=== PATIENT | female | born 1945 | race Caucasian/White ===

== ENCOUNTER 2020-06-01 15:03 | Outpatient (REF) | payer MEDICARE, SELFPAY ==
[2020-06-01 15:55] LABS: Influenza A PCR NEGATIVE (Negative); Influenza B PCR NEGATIVE (Negative); Resp Syncy Virus RNA Qual PCR NEGATIVE (Negative); SARS COV2 PCR INHOUSE NEGATIVE (Negative)
== END 2020-06-01 15:04 | disposition home or self-care (01) ==
LOC: HO.LNP 15:03
PROVIDERS: Visit Provider Internal Medicine
DX: Z20.822 Contact with and (suspected) exposure to COVID-19 (principal)
CPT/HCPCS: 0241U

== ENCOUNTER 2020-06-19 14:13 | Outpatient (REF) | payer MEDICARE, SELFPAY ==
--- NOTE | ~2020-06-19 | MM_ITS ---
EXAMINATION: MM DIAGNOSTIC DIGITAL BREAST TOMOSYNTHESIS, BILATERAL CLINICAL INFORMATION: Due for yearly. Also follow-up probable benign calcifications central 6:00 and posterior 3:00 left breast. Remote history reduction mammoplasty. The lifetime risk of breast cancer based on the Tyrer-Cuzick Model is 5%. COMPARISON: Mammography: 04/13/2019, 10/04/2018, 04/02/2018 (diagnostic, BI-RADS 3 calcifications anterior central left), 02/06/2017 TECHNIQUE: Digital breast tomosynthesis is performed in both the craniocaudal and mediolateral oblique views along with computer-aided detection (CAD). Synthesized 2D images are generated from the tomosynthesis. Additional views are obtained: Exaggerated left CC, magnification left CC, magnification exaggerated left CC, magnification left ML, magnification left ML. FINDINGS: The breasts are heterogeneously dense, which may obscure small masses (ACR BI-RADS breast composition Category c). There is fibronodular parenchymal pattern similar to prior studies. There is an old circumscribed nodule likely intramammary node posterior left breast just lateral to posterior nipple line. Neither breast shows interval mass or architectural abnormality. The axilla and skin contours are unremarkable. There is minor scarring breast and scattered anterior calcifications consistent with the remote history of reduction mammoplasty. Calcifications for follow-up left breast are similar to prior diagnostic studies and now considered benign. Results are provided to the patient at time of visit by the technologist. MM/MM tomosynthesis diagnostic BI IMPRESSION: 1. Minor post surgical changes. No significant changes from prior studies. 2. Calcifications for follow-up are similar to prior diagnostic exams and now considered benign. ASSESSMENT: BI-RADS 2: Benign RECOMMENDATION: Routine annual mammography screening. This patient's information was entered into a reminder system with a target due date for their next mammogram.
--- NOTE | ~2020-06-19 | MM_ITS ---
EXAMINATION: BONE DENSITOMETRY CLINICAL INDICATION: Osteoporosis. COMPARISON: Previous BD dated 07/24/2016 and baseline BD dated 12/11/2009. TECHNIQUE: Using a [employer] DXA System (software version: 13.1) manufactured by [employer], dual-energy x-ray absorptiometry was performed of the lumbar spine and left hip. The images are of good technical quality. Summary results are attached. FINDINGS: AP SPINE L1-L4 (excluding L3): The data of L1-L4 has been changed to exclude the L3 vertebral body, because degenerative changes at this level may cause overestimation of lumbar spine density. Current: BMD 0.805 g/cm2, Z-score -1.2, T-score -3.0, osteoporosis, 8.1% decrease from previous, 16.8% decrease from baseline (<5% change is not significant). Prior: BMD 0.876 g/cm2. Baseline: BMD 0.968 g/cm2. LEFT FEMUR, NECK: Current: BMD 0.691 g/cm2, Z-score -0.6, T-score -2.5, osteoporosis. Prior: BMD 0.775 g/cm2. Baseline: BMD 0.863 g/cm2. LEFT FEMUR, TOTAL: Current: BMD 0.697 g/cm2, Z-score -0.8, T-score -2.5, osteoporosis, 13.3% decrease from previous, 21.5% decrease from baseline (<5% change is not significant). Prior: BMD 0.804 g/cm2. Baseline: BMD 0.888 g/cm2. IDENTIFIED RISK FACTORS: Osteoporosis, family history (parental hip fracture), secondary osteoporosis, history of fracture (adult) menopause, hysterectomy, bilateral oophorectomy. HISTORY OF FRACTURE: Ankle. MEDICATIONS: Calcium supplements or multivitamin, vitamin D. MM/XR DEXA axial skeleton IMPRESSION: 1. DIAGNOSIS: Osteoporosis based on the lowest T-score value of -3.0 in the lumbar spine applying World Health Organization criteria. 2. 10-YEAR FRACTURE RISK PREDICTION, FRAX: Major osteoporotic fracture (clinical spine, forearm, hip or shoulder) 38.3%. Hip fracture 21.2%. 3. Treatment Recommendations: NOF guidelines recommend consideration for treatment in postmenopausal women and men age 50 and older presenting with the following: -A hip or vertebral (clinical or morphometric) fracture. -T-score less than or equal to -2.5 at the femoral neck or spine after appropriate evaluation to exclude secondary causes. -Low bone mass at the hip or spine and a 10-year fracture probability by FRAX of greater than or equal to 3% for hip fracture or greater than or equal to 20% for major osteoporotic fracture based on the [place] adapted WHO algorithm. 4. Other Recommendations: All treatment decisions require clinical judgment and consideration of individual patient factors, including patient preferences, comorbidities, previous drug use, risk factors not captured in the FRAX model (e.g. frailty, falls, vitamin D deficiency, increased bone turnover, interval significant decline in bone density) and possible under or overestimation of fracture risk by FRAX. Additional medical evaluation for secondary cause of low bone mineral density may be appropriate. FUTURE SCAN RECOMMENDATION: People with diagnosed cases of osteoporosis or at high risk for fracture should have regular bone mineral density tests. For patients eligible for Medicare, routine testing is allowed once every 2 years. The testing frequency can be increased to one year for patients who have rapidly progressing disease, those who are receiving or discontinuing medical therapy to restore bone mass, or have additional risk factors.
== END 2020-06-19 14:14 | disposition home or self-care (01) ==
LOC: HO.MAMMO 14:13
PROVIDERS: PCP Obstetrics & Gynecology Gynecology; Visit Provider Obstetrics & Gynecology Gynecology
DX: Z13.820 Encounter for screening for osteoporosis (principal); Z78.0 Asymptomatic menopausal state; Z90.710 Acquired absence of both cervix and uterus; Z90.722 Acquired absence of ovaries, bilateral; Z79.899 Other long term (current) drug therapy; R92.1 Mammographic calcification found on diagnostic imaging of breast
CPT/HCPCS: 77062; 77066; 77080

== ENCOUNTER 2020-06-27 09:45 | Outpatient (REF) | payer MEDICARE, SELFPAY ==
[2020-06-27 14:12] LABS: Alanine Aminotransferase 12 U/L (0-31); Albumin Level 4.2 g/dL (3.5-5.0); Alkaline Phosphatase 74 U/L (39-117); Anion Gap 13 (12-20); Aspartate Amino Transferase 20 U/L (5-31); Bilirubin Total 1.2 mg/dL (0.0-1.0); Blood Urea Nitrogen 15 mg/dL (9-16); Calcium 8.8 mg/dL (8.4-10.2); Carbon Dioxide 26 mmol/L (22-29); Chloride 106 mmol/L (96-108); Estimated Glomerular Filt Rate > 60; Glucose Fasting 97 mg/dL (60-99); Potassium 4.3 mmol/L (3.3-5.1); Sodium 141 mmol/L (135-145); Total Protein 6.9 g/dL (6.5-8.0)
[2020-06-27 14:35] LABS: Thyroid Stimulating Hormone 62.62 uIU/mL (0.32-4.0); Vitamin D 25-OH Total 30.4 ng/mL (>30)
[2020-06-30 10:57] LABS: PTHI 62 pg/mL (14-64)
[2020-07-03 16:02] LABS: N-Telopeptide 59 (see note); NTXCreaRU 267 mg/dL (20-275)
== END 2020-06-27 09:46 | disposition home or self-care (01) ==
LOC: HO.10HDL 09:45
PROVIDERS: Visit Provider Obstetrics & Gynecology Gynecology
DX: M85.9 Disorder of bone density and structure, unspecified (principal)
CPT/HCPCS: 36415; 80053; 82306; 82523; 83970; 84443

== ENCOUNTER 2022-04-17 11:59 | Outpatient (REF) | payer MEDICARE, SELFPAY ==
[2022-04-17 12:24] LABS: MANUAL DIFF FLAG NO
[2022-04-17 12:36] LABS: Basophils Absolute Auto 0.1 X10*3/uL (0.0-0.2); Basophils Percent Auto 0.8 % (0-2); Eosinophils Absolute Auto 0.2 X10*3/uL (0.0-0.4); Eosinophils Percent Auto 2.5 % (0-4); Hematocrit 39.3 % (37.0-47.0); Hemoglobin 12.8 g/dl (12.0-16.0); Imm Gran Abs Auto 0.01 X10*3/uL (0.00-0.03); Imm Gran Pct Auto 0.2 % (0.0-0.4); Lymphocytes Absolute Auto 1.7 X10*3/uL (1.2-4.9); Lymphocytes Percent Auto 28.3 % (20-40); Mean Corpuscular HGB Conc 32.6 g/dl (31.0-35.0); Mean Corpuscular Hemoglobin 31.6 pg (27.0-33.0); Monocytes Absolute Auto 0.5 X10*3/uL (0.1-1.2); Monocytes Percent Auto 8.3 % (2-11); Neutrophils Absolute Auto 3.7 x10*3/uL (2.0-8.3); Neutrophils Percent Auto 59.9 % (45-73); Platelet Count 312 X10*3/uL (160-400); Red Blood Count 4.05 X10*6/uL (4.20-5.50); Red Cell Distribution Width 13.6 % (11.0-16.0); White Blood Count 6.1 X10*3/uL (4.8-10.8)
[2022-04-17 13:20] LABS: Alanine Aminotransferase 11 U/L (0-31); Albumin Level 4.2 g/dL (3.5-5.0); Alkaline Phosphatase 75 U/L (39-117); Anion Gap 12 (12-20); Aspartate Amino Transferase 19 U/L (5-31); Bilirubin Total 1.1 mg/dL (0.0-1.0); Blood Urea Nitrogen 14 mg/dL (9-16); Calcium 9.3 mg/dL (8.4-10.2); Carbon Dioxide 24 mmol/L (22-29); Chloride 107 mmol/L (96-108); Cholesterol 220 mg/dL; Estimated Glomerular Filt Rate > 60; Glucose Random 97 mg/dL (60-115); HDL Cholesterol 63 mg/dL; LDL Cholesterol Calculated 143 mg/dl; Sodium 139 mmol/L (135-145); Total Protein 6.8 g/dL (6.5-8.0); Triglycerides 72 mg/dL
[2022-04-17 13:37] LABS: Free T4 (Free Thyroxine) < 0.42 ng/dL (0.71-1.85); Thyroid Stimulating Hormone 49.27 uIU/mL (0.32-4.0); Vitamin B12 369 pg/mL (200-900); Vitamin D 25-OH Total 24.8 ng/mL (>30)
[2022-04-19 01:18] LABS: Lyme Abs Screen <0.90 index
== END 2022-04-17 12:00 | disposition home or self-care (01) ==
LOC: HO.LAB 11:59
PROVIDERS: PCP Internal Medicine; Visit Provider Internal Medicine
DX: Z00.00 Encounter for general adult medical examination without abnormal findings (principal)
CPT/HCPCS: 36415; 80053; 80061; 82306; 82607; 84439; 84443; 85025; 86617; 86618

== ENCOUNTER 2022-06-11 15:22 | Outpatient (REF) | payer MEDICARE, SELFPAY ==
[2022-06-11 17:22] LABS: Free T4 (Free Thyroxine) 0.75 ng/dL (0.71-1.85); Thyroid Stimulating Hormone 38.41 uIU/mL (0.32-4.0); Vitamin D 25-OH Total 25.5 ng/mL (>30)
== END 2022-06-11 15:23 | disposition home or self-care (01) ==
LOC: HO.LAB 15:22
PROVIDERS: PCP Internal Medicine; Visit Provider Internal Medicine
DX: E03.9 Hypothyroidism, unspecified (principal); E55.9 Vitamin D deficiency, unspecified
CPT/HCPCS: 36415; 82306; 84439; 84443

== ENCOUNTER 2022-08-13 11:46 | Day surgery (SDC) | payer MEDICARE, SELFPAY ==
--- NOTE | 2022-08-12 14:32 | P.CONAN_ITS ---
Documented by User: Serena Mustafa NP 08/12/22 14:33 HPI - Anesthesia Eval Consult details Narrative: 77yo F for Colonoscopy [facility] Past Medical History Medical History Diverticulosis Exposure to hepatitis B Graves disease Surgical History Surgical History H/O colonoscopy H/O esophagogastroduodenoscopy H/O removal of cyst H/O: hysterectomy History of appendectomy Hx of tonsillectomy Social History Social History Patient Tobacco Use Status: Former Tobacco user Quit Date: greater than 30 yrs ago Patient Given Instructions on How to Stop Smoking: No Second Hand Smoke Exposure: No Use of substances other than those prescribed or required for medical reasons: No Are you DNR?: No Advance Directives: No Advance Directives Information Provided: Yes Meds Allergies Allergy/AdvReac Type Severity Reaction Status Date / Time rofecoxib [From VIOXX] Allergy Mild Swelling Verified 08/13/22 11:53 Home Medications Medication Instructions Recorded Confirmed Last Taken Type Calcium + D 08/12/22 Unknown History Multi Vitamin 08/12/22 08/12/22 Unknown History fluticasone propionate 50 1 spray intranasal DAILY 08/12/22 08/12/22 Unknown History mcg/actuation nasal spray,suspension levothyroxine 100 mcg tablet 100 mcg PO DAILY 08/12/22 08/12/22 Unknown History Exam Exam Date and Time: August 12, 2022 1432 Pertinent Lab Results Pertinent Lab Results: Laboratory Tests 04/17/22 04/17/22 12:22 12:22 WBC 6.1 Hgb 12.8 Hct 39.3 Plt Count 312 Sodium 139 Potassium 4.0 Chloride 107 Carbon Dioxide 24 BUN 14 Creatinine 0.83 Assessment and Plan Assessment Anesthesia Assessment: Chart Reviewed Documented by User: Lori Aranda MD 08/13/22 13:22 [facility] Past Medical History Medical History Diverticulosis Exposure to hepatitis B Graves disease Family History Family history of problems with anesthesia: No Surgical History Surgical History H/O colonoscopy H/O esophagogastroduodenoscopy H/O removal of cyst H/O: hysterectomy History of appendectomy Hx of tonsillectomy History of Problems with Anesthesia: No Social History Social History Patient Tobacco Use Status: Former Tobacco user Quit Date: greater than 30 yrs ago Patient Given Instructions on How to Stop Smoking: No Second Hand Smoke Exposure: No Use of substances other than those prescribed or required for medical reasons: No Are you DNR?: No Advance Directives: No Advance Directives Information Provided: Yes Meds Allergies Allergy/AdvReac Type Severity Reaction Status Date / Time rofecoxib [From VIOXX] Allergy Mild Swelling Verified 08/13/22 11:53 Home Medications Medication Instructions Recorded Confirmed Last Taken Type Calcium + D 08/12/22 Unknown History Multi Vitamin 08/12/22 08/12/22 Unknown History fluticasone propionate 50 1 spray intranasal DAILY 08/12/22 08/12/22 Unknown History mcg/actuation nasal spray,suspension levothyroxine 100 mcg tablet 100 mcg PO DAILY 08/12/22 08/12/22 Unknown History Exam Airway Mallampati Class: II TM Dist: >3cm Neck ROM: Full Heart: rr Lungs: cta Assessment and Plan Assessment Anesthesia Assessment: Anesthesia Plan Discussed Final Anesthetic Review Family History of Problems with Anesthesia: No History of Problems with Anesthesia: No NPO: Yes ASA Class: II Final Preanesthetic Review: No Changes in Pt Med Stat, Meds/Allgs Chart Reviewed, Consent Obtained/Reviewed and Anes Risks/Benef Reviewed Patient Risk: Low Procedure Risk: Low Anesthetic Plan Anesthetic Plan: MAC: Disposition: Standard PACU
[2022-08-13 12:11] VITALS: BMI 22.3
[2022-08-13 12:17] VITALS: BP 129/72; PULSE 72; RESP 18; TEMP 36.5; O2SAT 99
[2022-08-13] MEDS: Lactated Ringers 1,000 ML 100 ML IVCONT (12:17)
[2022-08-13 12:21] VITALS: BMI 22.3
--- NOTE | 2022-08-13 13:03 | MHC.SHP ---
Pre-Procedural Eval Section A Date of Service: 08/13/22 The patient is an INPATIENT: No Changes since office visit: No Cold of Flu in the past 2 weeks, No New Medical Problems, No Changes in Medication and No Patient answered all questions The History & Physical has been completed within 30 days and I have reviewed it.: Yes Section B Chief Complaint: Encounter for screening for malignant neoplasm of Allergies: Allergies Allergy/AdvReac Type Severity Reaction Status Date / Time rofecoxib [From VIOXX] Allergy Mild Swelling Verified 08/13/22 11:53 Plan I have reviewed the history and physical and performed a pertinent physical examination on my patient. No changes have occurred unless specified. Time Spent With Patient Time: Total time managing care of this patient today ____ minutes.
--- NOTE | 2022-08-13 13:41 | PM.OP ---
Brief Operative Note Date of Service: 08/13/22 Pre-op diagnosis: screening Post-op diagnosis: same Procedure: colonoscopy Surgeon: Nayan Schmidt Anesthesia: MAC Was an Rotary Lithographic Press Operator used for this Procedure?: No Estimated blood loss (mL): 0 Pathology: none sent Condition: stable Disposition: PACU
[2022-08-13 13:43] VITALS: BP 87/41; PULSE 67; RESP 16; TEMP 36.4; O2SAT 97
[2022-08-13 13:58] VITALS: BP 100/56; PULSE 73; RESP 12; O2SAT 98
[2022-08-13 14:13] VITALS: BP 116/59; PULSE 55; RESP 14; TEMP 36.4; O2SAT 99
--- NOTE | 2022-08-14 00:04 | OP_ITS ---
DATE OF SERVICE: 08/13/2022 SURGEON: Nayan Schmidt MD INDICATIONS: Colon cancer screening. PREOPERATIVE DIAGNOSIS: POSTOPERATIVE DIAGNOSIS: PROCEDURE PERFORMED: ESTIMATED BLOOD LOSS: COMPLICATIONS: ANESTHESIA: Monitored anesthesia care. ASSISTANTS: SPECIMENS: PROCEDURE: Colonoscopy to the terminal ileum. DESCRIPTION OF PROCEDURE: A history and physical was performed. The risks and benefits of the procedure were explained to the patient and informed consent was obtained and the patient was placed in the left lateral decubitus position. A digital rectal exam was performed and was found to be normal. The Olympus pediatric video colonoscope was introduced into the rectum and advanced to the cecum without difficulty. The cecum was identified by transillumination, palpation, and identification of the ileocecal valve. Examination was performed. The scope was removed. She tolerated the procedure well and was taken to recovery are in stable condition. FINDINGS: The terminal ileum was examined and appeared normal. The visualized colonic mucosa was within normal limits without evidence of masses or ulcers. No polyps were identified. The quality of prep was good. There was moderate sigmoid diverticulosis. Retroflexed examination showed small internal hemorrhoids. IMPRESSION: Normal colonoscopy. RECOMMENDATIONS: 1. Follow up as needed. 2. Repeat colonoscopy is optional based on age, but could be considered in 5 years. MD JASVIR Hart/ODILIAL / [id number]
== END 2022-08-13 14:56 | disposition home or self-care (01) ==
PROVIDERS: PCP Internal Medicine; Visit Provider Internal Medicine Gastroenterology
PROC: 0DJD8ZZ Inspection of Lower Intestinal Tract, Via Natural or Artificial Opening Endoscopic (ICD-10-PCS; CPT 45378; principal; 2022-08-13 13:00)
DX: Z12.11 Encounter for screening for malignant neoplasm of colon (principal); Z80.0 Family history of malignant neoplasm of digestive organs; Z83.71 Family history of colonic polyps; K57.30 Diverticulosis of large intestine without perforation or abscess without bleeding; K64.8 Other hemorrhoids; K59.00 Constipation, unspecified; E05.00 Thyrotoxicosis with diffuse goiter without thyrotoxic crisis or storm; Z57.8 Occupational exposure to other risk factors; Z20.5 Contact with and (suspected) exposure to viral hepatitis; Z79.899 Other long term (current) drug therapy; Z88.8 Allergy status to other drugs, medicaments and biological substances; Z87.891 Personal history of nicotine dependence
CPT/HCPCS: G0105

== ENCOUNTER 2023-12-16 11:23 | Outpatient (REF) | payer MEDICARE, SELFPAY ==
[2023-12-16 13:10] LABS: MANUAL DIFF FLAG NO
[2023-12-16 13:12] LABS: Basophils Percent Auto 0.6 % (0-2); Eosinophils Absolute Auto 0.1 X10*3/uL (0.0-0.4); Eosinophils Percent Auto 1.8 % (0-4); Hematocrit 38.5 % (37.0-47.0); Hemoglobin 12.8 g/dl (12.0-16.0); Imm Gran Abs Auto 0.01 X10*3/uL (0.00-0.03); Imm Gran Pct Auto 0.2 % (0.0-0.4); Lymphocytes Absolute Auto 1.9 X10*3/uL (1.2-4.9); Lymphocytes Percent Auto 37.9 % (20-40); Mean Corpuscular HGB Conc 33.2 g/dl (31.0-35.0); Mean Corpuscular Hemoglobin 32.4 pg (27.0-33.0); Mean Corpuscular Volume 97.5 fL (80.0-98.0); Mean Platelet Volume 9.5 fL (9.4-12.3); Monocytes Absolute Auto 0.4 X10*3/uL (0.1-1.2); Monocytes Percent Auto 8.3 % (2-11); Neutrophils Absolute Auto 2.6 x10*3/uL (2.0-8.3); Neutrophils Percent Auto 51.2 % (45-73); Platelet Count 299 X10*3/uL (160-400); Red Blood Count 3.95 X10*6/uL (4.20-5.50); Red Cell Distribution Width 13.9 % (11.0-16.0); White Blood Count 5.1 X10*3/uL (4.8-10.8)
[2023-12-16 13:35] LABS: Alanine Aminotransferase 15 U/L (0-31); Albumin Level 3.8 g/dL (3.5-5.0); Alkaline Phosphatase 63 U/L (39-117); Anion Gap 8 (12-20); Aspartate Amino Transferase 23 U/L (5-31); Bilirubin Total 0.8 mg/dL (0.0-1.0); Blood Urea Nitrogen 9 mg/dL (9-16); Calcium 9.1 mg/dL (8.4-10.2); Carbon Dioxide 27 mmol/L (22-29); Chloride 110 mmol/L (96-108); Estimated Glomerular Filt Rate 59; Glucose Random 93 mg/dL (60-115); Potassium 4.4 mmol/L (3.3-5.1); Sodium 141 mmol/L (135-145); Total Protein 6.4 g/dL (6.5-8.0)
[2023-12-16 13:53] LABS: Free T4 (Free Thyroxine) < 0.42 ng/dL (0.71-1.85); Thyroid Stimulating Hormone 63.44 uIU/mL (0.32-4.0); Vitamin D 25-OH Total 41.3 ng/mL (>30)
== END 2023-12-16 11:24 | disposition home or self-care (01) ==
LOC: HO.10HDL 11:23
PROVIDERS: Visit Provider Internal Medicine
DX: E03.9 Hypothyroidism, unspecified (principal); E55.9 Vitamin D deficiency, unspecified
CPT/HCPCS: 36415; 80053; 82306; 84439; 84443; 85025

== ENCOUNTER 2024-02-02 11:47 | Outpatient (REF) | payer MEDICARE, SELFPAY ==
[2024-02-02 14:17] LABS: Free T4 (Free Thyroxine) 1.67 ng/dL (0.71-1.85); Thyroid Stimulating Hormone 0.22 uIU/mL (0.32-4.0)
== END 2024-02-02 11:48 | disposition home or self-care (01) ==
LOC: HO.10HDL 11:47
PROVIDERS: Visit Provider Internal Medicine
DX: E03.9 Hypothyroidism, unspecified (principal)
CPT/HCPCS: 36415; 84439; 84443

== ENCOUNTER 2024-03-08 12:21 | Outpatient (REF) | payer MEDICARE, SELFPAY ==
[2024-03-08 14:40] LABS: Free T4 (Free Thyroxine) 1.51 ng/dL (0.71-1.85)
--- OUTSIDE RECORDS SUMMARY | 2024-03-15 13:42 | XMS_ITS | Patient Health Record ---
Author Organization [facility] Address [address] [place] [id number] Care Team Providers Care Flat Ironer Name Role Phone Zaki Stevens MD Primary Care Provider Nayan Lui Jr Unavailable ALLERGIES Allergen (clinical drug ingredient) Drug/Non Drug Allergy documented on EMR Reaction Allergy Type Onset Date Status rofecoxib vioxx (uncoded) Unknown Allergy Acti ve REASON FOR REFERRAL No Information MEDICATIONS Medication SIG (Take, Route, Frequency, Duration) Notes Start Date End Date Status Fluticasone Propionate 50 MCG/ACT USE 1 SPRAY IN EACH NOSTRIL EVERY DAY Nasal PRN Active Levothyroxine Sodium 100 MCG 1 tablet in the morning on an empty stomach Orally Once a day for 30 day(s) Active Multi Vitamin/Minerals Orally 09/30/2013 Active Calcium + D Active IMMUNIZATIONS Vaccine Route Administration Date Status Comme nts Influenza Unknown 01/21/2022 Administered SOCIAL HISTORY Tobacco Use: Social History Observation Description Date Details (start date - stop date) Former Smoker NA - NA Sex Assigned At : Social History Observation Description Sex Assigned At Unknown Tobacco Use/Smoking Question Answer Notes Patient is a former smoker How long has it been since you last smoked? > 10 years PROBLEMS Problem Type ICD Code Onset Dates Problem Status W/U Status Risk SNOMED Code Notes Problem Colon cancer screening (Z12.11) Active confirmed 744260535 Problem Family history of colon cancer (Z80.0) Active confirmed 332700765 Problem RUQ pain (R10.11) Active confirmed 562325250 Problem Pelvic pain (R10.2) Active confirmed 06506502 Problem Flank pain (R10.9) Active confirmed 025103738 Problem Abnormal ultrasound of gallbladder (R93.2) Active confirmed 540996962 PLAN OF TREATMENT Future Test Test Name Order Date UPPER GI ENDOSCOPY 09/30/2013 COLONOSCOPY 09/30/2013 COLONOSCOPY 07/28/2022 Insurance Providers Payer Name Payer Address Payer Phone Subscriber Number Group Number Insured Name Patient Relationship to Insured Coverage Start Date Coverage End Date MEDICARE OF [place] [address] [place]JAN OROZCOMINNA [id number] [phone] [id number] ALIYAH HAYNES Self - patient is the insured [employer] ATT[employer] CLAIMS [address] [place] [address] [phone] [id number] ALIYAH HAYNES Self - patient is the insured MEDICAL (GENERAL) HISTORY Medical History History ICD Code Colonoscopy 01/25/14, diverticulosis, fi ve-year followup for family history Graves' disease status post [employer] Occupational exposure to hepatitis B EGD 01/25/14, no H. pylori or Newton's esophagus pyelonephritis Surgical History Surgery Date(Month/Year) appendectomy tonsillectomy right ovarian cyst removed hysterectomy
== END 2024-03-08 12:22 | disposition home or self-care (01) ==
LOC: HO.10HDL 12:21
PROVIDERS: Visit Provider Internal Medicine
DX: E03.9 Hypothyroidism, unspecified (principal)
CPT/HCPCS: 36415; 84439; 84443

== ENCOUNTER 2024-08-23 10:19 | Outpatient (AMB) | payer MEDICARE, SELFPAY ==
--- NOTE | 2024-08-23 10:20 | A.OFFPC_ITS ---
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 Has been compliant with all medications. She initially reports no concerns. However, her brings up concerns over her memory. Reports over the last few months has had a gradual loss of short term memory. She does agree with this. Has been misplacing objects such as kitchen items in the wrong place which she never would have done previously and breaking previously established routines. She had stopped taking her levothyroxine because she didnt like taking pills. Has been quite hypothyroid but has reumed her levothyroxine and is now euthyroid. She is not driving at this time. She is eating and drinking without difficulty. No unexplained weight loss. She has not gotten lost while being outside. No behavioral outbursts or emotional lability. She has been doing crossword puzzles and reading to help with her memory. She also remains active with exercise. ROS: General: No fevers, malaise, unintentional weight loss HEENT: No blurred vision, diplopia. No sore throat, nasal congestion, rhinorrhea, sinus pain, ear pain Cardiovascular: No chest pain, palpitations, or leg edema Respiratory: No shortness of breath, wheezing, cough GI: No abdominal pain, nausea, vomiting, diarrhea, constipation, melena, hematochezia : No dysuria, hematuria, increased urinary frequency, decreased urinary output MSK: No myalgia, back pain Neuro: No headaches, weakness, paresthesias. See HPI Skin: No rashes or lesions Exam: Constitutional - Awake and Alert, No apparent distress Eyes - PERRLA, EOMI Cardiovascular - S1S2, RRR, No edema Respiratory - Normal lung expansion, Normal respiratory effort, No respiratory distress, CTA bilaterally Extremities - no calf tenderness bilaterally, no swelling Skin - Warm/Dry Neurological - Alert & oriented to self and corrects to place after initially stating wrong locations, CN II-XII in tact MOCA: Visuospatial/executive: Sequence - 1/1 Copy bed - 0/1 Clock - 1/3 (contour correct) Naming - 3/3 Memory - no points Attention : Read digits - 2/2 Read list of letter - 1/1 Serial subtraction - 0/3 Language: Repeat - 2/2 Fluency - 0/1 Abstraction - 0/2 Delayed recall : Uncued - 0/5 Category cue - 2/5 Multiple choice - 1/5 (MIS 08/18) Orientation - 3/6 TOTAL SCORE - Psychological - Appropriate affect PFSH Medical History (Updated 08/24/24 @ 08:46 by EFRAÍN Car) Cognitive impairment Exposure to hepatitis B Graves disease Diverticulosis Surgical History H/O removal of cyst H/O: hysterectomy Hx of tonsillectomy History of appendectomy H/O esophagogastroduodenoscopy H/O colonoscopy Social History Patient Tobacco Use Status: Former Tobacco user Second Hand Smoke Exposure: No Physical exam (Primary Care) Vital Signs: Last Vital Signs Temp 97.3 F 08/23/24 10:25 Pulse 71 08/23/24 10:25 Resp 16 08/23/24 10:25 BP 144/66 H 08/23/24 10:25 Pulse Ox 97 08/23/24 10:25 Oxygen Delivery Method Room Air 08/23/24 10:25 BMI result Body Mass Index 20.7 Tobacco/Smoking Status: Tobacco use Status Patient Tobacco Use Status Former Tobacco user 08/23/24 10:28 Coding Level of Care Code New Pt Level 5 (47719) Complex EM visit Add On G2211 Diagnoses Graves disease E05.00 Memory loss R41.3 Cognitive impairment R41.89 Elevated blood pressure reading R03.0 Assessment & Plan Assessment & Plan (1) Graves disease: Code(s): E05.00 - Thyrotoxicosis with diffuse goiter without thyrotoxic crisis or storm Category: Medical Plan: TSH w/ free T4 ordered. Continue levothyroxine 100mcg daily. Importance of compliance discussed with patient. (2) Memory loss: Code(s): R41.3 - Other amnesia Category: Medical Plan: Suspect related to dementia, possibly AD based on MOCA. However, will rule out metabolic and structural abnormalities that could be contributing to symptoms. (3) Cognitive impairment: Code(s): R41.89 - Other symptoms and signs involving cognitive functions and awareness Category: Medical Plan: MOCA concerning for moderate to severe cognitive impairment. Given impaired orientation, impaired language, impaired recall, and impaired executive function, this raises concern for Alzheimer's dementia. Metabolic panels, vitamin levels to be checked. Thyroid panel. Will also evaluate MRI brain for any structural abnormality that could be causing symptoms as MOCA can be helpful but is not diagnostic. I have advised the patient and her that she should not be driving a vehicle at this time and both express agreement and understanding. Recommend continuing with brain stimulating activity such as cross words, Sudoku, reading etc. Referral to neurology placed for diagnostic purposes. Discussed irreversible nature of disease. Will however trial memantine for symptomatic impreovement. Health care proxy should be invoked if no reversible cause. (4) Elevated blood pressure reading: Code(s): R03.0 - Elevated blood-pressure reading, without diagnosis of hypertension Category: Medical Plan: No history of HTN. Possibly related to nature of visits. Will recheck pressure at follow up visit. Plan Follow up in 6 weeks, sooner if needed. Labs ordered as weel as MRI as noted above. Referral to neurology placed. Time spent with patient 45 minutes including compeltion of MOCA. >15 minutes in discussion with specialist, lab review, and note Orders: Orders Complete Blood Count Auto Diff 08/23/24 E05.00 - Thyrotoxicosis with diffuse goiter without thyrotoxic crisis or storm, R41.3 - Other amnesia, R41.89 - Other symptoms and signs involving cognitive functions and awareness Basic Metabolic Panel 08/23/24 E05. - Thyrotoxicosis with diffuse goiter without thyrotoxic crisis or storm, R41.3 - Other amnesia, R41.89 - Other symptoms and signs involving cognitive functions and awareness Hemoglobin A1c 08/23/24 E05. - Thyrotoxicosis with diffuse goiter without thyrotoxic crisis or storm, R41.3 - Other amnesia, R41.89 - Other symptoms and signs involving cognitive functions and awareness Vitamin D 25-OH Total 08/23/24 E05.00 - Thyrotoxicosis with diffuse goiter without thyrotoxic crisis or storm, R41.3 - Other amnesia, R41.89 - Other symptoms and signs involving cognitive functions and awareness Tick-borne Disease Molecular 08/23/24 E05.00 - Thyrotoxicosis with diffuse goiter without thyrotoxic crisis or storm, R41.3 - Other amnesia, R41.89 - Other symptoms and signs involving cognitive functions and awareness MR head/brain wo con 08/23/24 E05.00 - Thyrotoxicosis with diffuse goiter without thyrotoxic crisis or storm, R41.3 - Other amnesia, R41.89 - Other symptoms and signs involving cognitive functions and awareness Liver Panel 08/23/24 E05.00 - Thyrotoxicosis with diffuse goiter without thyrotoxic crisis or storm, R41.3 - Other amnesia, R41.89 - Other symptoms and signs involving cognitive functions and awareness TSH reflex Free T4 08/23/24 E05.00 - Thyrotoxicosis with diffuse goiter without thyrotoxic crisis or storm, R41.3 - Other amnesia, R41.89 - Other symptoms and signs involving cognitive functions and awareness Vitamin B12 08/23/24 E05.00 - Thyrotoxicosis with diffuse goiter without thyrotoxic crisis or storm, R41.3 - Other amnesia, R41.89 - Other symptoms and signs involving cognitive functions and awareness Referrals Neurology Referral R41.89 - Other symptoms and signs involving cognitive functions and awareness Medications: New memantine 7 mg PO DAILY 90 ea 0RF
[2024-08-23 10:25] VITALS: BP 144/66; PULSE 71; RESP 16; TEMP 36.3; O2SAT 97; BMI 20.7
--- OUTSIDE RECORDS SUMMARY | 2024-08-23 11:32 | XMS_ITS | Patient Health Record ---
Author Organization [facility] Address [address] [place] [address] Care Team Providers Care Stuffed Casing Tier Name Role Phone Zaki Stevens MD Primary Care Provider Nayan Lui Jr Unavailable Allergies Allergen (clinical drug ingredient) Drug/Non Drug Allergy documented on EMR Reaction Allergy Type Onset Date Status rofecoxib vioxx (uncoded) Unknown Allergy Acti ve Reason For Referral No Information Medications Medication SIG (Take, Route, Frequency, Duration) Notes Start Date End Date Status Fluticasone Propionate 50 MCG/ACT USE 1 SPRAY IN EACH NOSTRIL EVERY DAY Nasal PRN Active Levothyroxine Sodium 100 MCG 1 tablet in the morning on an empty stomach Orally Once a day for 30 day(s) Active Multi Vitamin/Minerals Orally 09/30/2013 Active Calcium + D Active Immunizations Vaccine Route Administration Date Status Comme nts Influenza Unknown 01/21/2022 Administered Social History Tobacco Use: Social History Observation Description Date Details (start date - stop date) Former Smoker NA - NA Tobacco Use/Smoking Question Answer Notes Patient is a former smoker How long has it been since you last smoked? > 10 years Problems Problem Type SNOMED Code ICD Code Onset Dates Problem Status W/U Status Risk Notes Problem 535325404 Colon cancer screening (Z12.11) Active confirmed Problem 926865900 Family history of colon cancer (Z80.0) Active confirmed Problem 793353048 RUQ pain (R10.11) Active confirmed Problem 10097715 Pelvic pain (R10.2) Active confirmed Problem 949446446 Flank pain (R10.9) Active confirmed Problem 012688671 Abnormal ultrasound of gallbladder (R93.2) Active confirmed Plan Of Treatment Future Test Test Name Order Date UPPER GI ENDOSCOPY 09/30/2013 COLONOSCOPY 09/30/2013 COLONOSCOPY 07/28/2022 Insurance Providers Payer Name Payer Address Payer Phone Subscriber Number Group Number Insured Name Patient Relationship to Insured Coverage Start Date Coverage End Date MEDICARE OF [place] [address] [place] [id number] [phone] [id number] ALIYAH HAYNES Self - patient is the insured MEDEX ATTN CLAIMS [address] [place] [address] [id number] ALIYAH HAYNES Self - patient is the insured Medical (General) History Medical History History ICD Code Colonoscopy 01/25/14, diverticulosis, fi ve-year followup for family history Graves' disease status post [employer] Occupational exposure to hepatitis B EGD 01/25/14, no H. pylori or Newton's esophagus pyelonephritis Surgical History Surgery Date(Month/Year) appendectomy tonsillectomy right ovarian cyst removed hysterectomy
--- OUTSIDE RECORDS SUMMARY | 2024-08-23 11:32 | XMS_ITS | Patient Health Record ---
Author Organization [facility] Address [address] [facility] [address] [facility] [facility] [address] [place] [address] Care Team Providers Care Sticker Machine Operator Name Role Phone RADHIKA DAVALOS M.D. Primary Care Provider Maria G Coon Unavailable [phone] Allergies Allergen (clinical drug ingredient) Drug/Non Drug Allergy documented on EMR Reaction Allergy Type Onset Date Status rofecoxib Vioxx (uncoded) Lips Swell Allergy Act van Results Component Value Reference Range Notes [id number] IGP No Culture 30 Plus (Not yet reviewed by provider) Interpretation: Performing Lab:[facility], [address] [place] [address], Phone - [phone], Director - [employer] Notes/Report: Clinical Information:Vaginal, LMP: Hyst, + HPV [id number] LMP / Prev Treat...Hyst Dates / Results....07/30/22 NIL, + HPV Other..............Post Menopausal No. of containers..01 ThinPrep Vial DIAGNOSIS: EPITHELIAL CELL ABNORMALITY. LOW GRADE SQUAMOUS INTRAEPITHELIAL LESION (LSIL). Specimen adequacy: Satisfact ory for evaluation. No endocervical component is identified. Clinician provided ICD10: R8 7.810 Performed by: Ramses plascencia, Rehabilitation Program Manager (ASCP) Electronically signed by: Gaurang Yo MD, Pathologist . . Pathologist provided ICD10: R87.612 Note: The Pap smear is a screening test designed to aid in the detection of premalignant and malignant conditions of the uterine cervix. It is not a diagnostic procedure and should not be used as the sole means of detecting cervical cancer. Both false-positive and false-negative reports do occur. . Test Methodology: This liquid based ThinPrep(R) pap test was screened with the use of an image guided system. HPV Aptima Positive Negative This nucleic acid amplification test detects fourteen high-risk HPV types (16,18,31,33,35,39,45,51,52,56, 58,59,66,68) without differentiation. HPV Genotype Reflex Criteria not met, HPV Genotype not performed. PDF Report Reviewed date:04/21/2024 05:15:26 PM Interpretation: Performing Lab:[facility], [address] [place] [address], Phone - [phone], Director - [employer] Notes/Report: Clinical Information:Vaginal, LMP: Hyst, + HPV [id number] LMP / Prev Treat...Hyst Dates / Results....07/30/22 NIL, + HPV Other..............Post Menopausal No. of containers..01 ThinPrep Vial Reason For Referral No Information Medications Medication SIG (Take, Route, Frequency, Duration) Notes Start Date End Date Status Hair Vitamins - as directed Orally Active Estradiol Vaginal Cream 0.01% 1 Gram to the affected area Vaginal/Vulva Twice a week for 90 Days 03/01/2024 Active Estradiol 0.1 MG/GM 1 GRAM VAGINA AND VU LVA Two times a Week for 90 days 01/19/2024 Active Clobetasol Propionate 0.05 % 1 application to affected area Externally once a night for 30 days 03/01/2024 Active Multi-Vitamin Daily - 1 tablet Orally Once a day Active Synthroid 100 MCG 1 tablet on an empty stomach in the morning Orally Once a day Active Fosamax 70 MG 1 tablet Orally WEEK LY for 90 days 07/30/2022 Active Calcium 1 tab Oral Active Social History Tobacco Use: Social History Observation Description Date Details (start date - stop date) Former Smoker NA - NA Sexual History Question Answer Notes Had sex in the past 12 months (vaginal, oral, or anal)? No AUDIT-C (Standard) Question Answer Notes Did you have a drink contain ing alcohol in the past year? Yes How often did you have six o r more drinks on one occasion in the past year? Never (0 point) How many drinks did you have on a typical day when you were drinking in the past year? 1 or 2 drinks (0 point) How often did you have a dri nk containing alcohol in the past year? Monthly or less (1 point) Points 1 Interpretation Negative Tobacco Control (Standard) Question Answer Notes Tobacco use: Former smoker How long has it been since you last smoked? Grea ter than 10 years Problems Problem Type SNOMED Code ICD Code Onset Dates Problem Status W/U Status Risk Notes Problem Human papilloma virus deoxyribonucleic acid test positive, high risk on vaginal specimen (709671887267358) Cervical high risk human papillomavirus (HPV) DNA test positive (R87.810) Active confirmed Problem Postmenopausal atrophic vaginitis (13977629) Postmenopausal atrophic vaginitis (N95.2) Active confirmed Problem Age-related osteoporosis (321598173) Age-related osteoporosis without current pathological fracture (M81.0) Active confirmed Problem Localized morphea (145573083) 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) Active confirmed Problem Disorder of breast (02229125) Disorder of breast, unspecified (N64.9) Active confirmed Problem Atrophy of vulva (620182918) 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 [address] [place] [address] 03/01/2024 Maria G Cardona Encounter for gynecological examination (general) (routine) with abnormal findings Z01.411 ; Encounter for screening mammogram for malignant neoplasm of breast Z12.31 ; Age-related osteoporosis without current pathological fracture M81.0 ; Personal history of cervical dysplasia Z87.410 ; Lichen sclerosus et atrophicus L90.0 ; Atrophy of vulva N90.5 ; Postmenopausal atrophic vaginitis N95.2 and Dense breasts, unspecified R92.30 [facility] [address] [address] 04/13/2024 Maria G Cardona Lichen sclerosus et atrophicus L90.0 ; Atrophy of vulva N90.5 and Cervical high risk human papillomavirus (HPV) DNA test positive R87.[address] [address] 01/19/2024 Maria G Cardona Total [address] [address] 04/12/2024 Maria G Cardona Total [address] [address] 06/23/2024 Maria G Cardona Assessments Encounter Date Diagnosis (ICD Code) Assessment Notes Treatment Notes Treatment Clinical Notes Section Notes 03/01/2024 Encounter for gynecological examination (general) (routine) with abnormal findings (ICD-10 - Z01.411) NO PAP TEST. 03/01/2024 Encounter for screening mammogram for malignant neoplasm of breast (ICD-10 - Z12.31) REGULAR MAMMOGRAMS AND SBE'S WERE RECOMMENDED. 04/13/2024 Lichen sclerosus et atrophicus (ICD-10 - L90.0) DISCUSSED FINDINGS. PAT REFUSED TO LOOK AT THE AREA OF CONCERN. ADVISED PAT TO APPLY CLOBETASOL OINTMENT NIGHTLY FOR 6 WEEKS, THEN THRICE A WEEK UNTIL SHE IS SEEN AGAIN IN 6 MONTHS. CHECK VULVA Q MONTH AND INCREASE OR DECREASE DOSE NEEDED. 04/13/2024 Atrophy of vulva (ICD-10 - N90.5) CONTINUE APPLYING ESTRADIOL CREAM TO VULVA TWICE WEEKLY. 03/01/2024 Age-related osteoporosis without current pathological fracture (ICD-10 - M81.0) DISCUSSED HER LAST BMD RESULTS AND OSTEOPOROSIS AND ITS IMPACT ON HER HEALTH. ADEQUATE CALCIUM AND VIT D. WEIGHT BEARING EXERCISES. OSTEO PRECAUTIONS. REPEAT BMD THIS YEAR. 04/13/2024 Cervical high risk human papillomavirus (HPV) DNA test positive (ICD-10 - R87.810) DISCUSSED NEGATIVE PAP TEST BUT POSITIVE HR HPV AND ITS IMPLICATIONS. REPEAT PAP TEST WITH HPV TYPING WAS OBTAINED. 03/01/2024 Personal history of cervical dysplasia (ICD-10 - Z87.410) DISCUSSED PREVIOUS HX OF SONIA IN HER 20'S AND NEGATIVE PAP TESTS SINCE THEN. 03/01/2024 Lichen sclerosus et atrophicus (ICD-10 - L90.0) DISCUSSED FINDINGS ON PELVIC EXAM AND SHOWED PAT AND HER LESIONS NOTED. DISCUSSED THE DX AND TX OPTIONS. CLOBETASOL RX AND INSTRUCTIONS WERE GIVEN. RTO IN A MONTH FOR REEVALUATION. 03/01/2024 Atrophy of vulva (ICD-10 - N90.5) DISCUSSED VULVAR ATROPHY AND TX OPTIONS. APPLY ESTRADIOL CREAM ALONG THE VULVA TWICE WEEKLY. DETAILED INSTRUCTIONS WERE GIVEN. 03/01/2024 Postmenopausal atrophic vaginitis (ICD-10 - N95.2) DISCUSSED VAGINAL ATROPHY AND ADVISED PAT TO APPLY ESTRADIOL CREAM INTRAVAGINALLY TWICE WEEKLY. DETAILED INSTRUCTIONS WERE GIVEN. 03/01/2024 Dense breasts, unspecified (ICD-10 - R92.30) DISCUSSED DENSE BREASTS ON MAMMOGRAM AND ITS IMPLICATIONS. 3D MAMMOGRAMS WERE RECOMMENDED. Plan Of Treatment Pending Test Test Name Order Date MAMMOGRAM, SCREENING 07/30/2022 MAMMOGRAM, SCREENING 03/01/2024 25OH VITAMIN D 02/12/2017 25OH VITAMIN D 01/07/2017 25OH VITAMIN D 06/22/2020 COMPREHENSIVE METABOLIC PANEL 01/07/2017 COMPREHENSIVE METABOLIC PANEL 06/22/2020 N-TELOPEPTIDE CROSS 06/22/2020 N-TELOPEPTIDE CROSS 01/07/2017 PTH, INTACT 01/07/2017 PTH, INTACT 06/22/2020 TSH 06/22/2020 TSH 01/07/2017 BONE DENSITY 03/05/2020 BONE DENSITY 07/30/2022 BONE DENSITY 03/01/2024 MM Digital Mammo Screening 07/30/2022 MM Digital Mammo Screening 03/01/2024 [id number] IGP No Culture 30 Plus 2024 Next Appt Details Provider Name:Maria G muro, 08/31/2024 02:20:00 PM, [address], [place], [address], Provider Name:Maria G muro, 10/13/2024 01:20:00 PM, [address], [address], [place], [address], Provider Name:Maria G muro, 03/08/2025 01:20:00 PM, [address] [facility], [address], [place], [address], Insurance Providers Payer Name Payer Address Payer Phone Subscriber Number Group Number Insured Name Patient Relationship to Insured Coverage Start Date Coverage End Date MEDICARE [address] [place] [id number] ALIYAH HAYNES Self - patient is the insured MEDEX [address] [place] [address] [phone] [id number] ALIYAH HAYNES Self - patient is the insured Medical (General) History Medical History History ICD Code Acute hepatitis B without delta-agent an d without hepatic coma B16.9 Disorder of thyroid, unspecified E07.9 2 Ureters on Right Side Personal history of cervical dysplasia Z 87.410 Disorder of bone density and structure, unspecified M85.9 Vitamin D deficiency, unspecified E55.9 Disorder of breast, unspecified N64.9 Postmenopausal atrophic vaginitis N95.2 Inconclusive mammogram R92.2 Mammographic heterogeneous density, bila teral breasts R92.333 Cervical high risk human papillomavirus (HPV) DNA test positive R87.810 Age-related osteoporosis without current pathological fracture M81.0 Surgical History Surgery Date(Month/Year) Appendectomy 1978 Colonoscopy Iridotomy 2017 Tonsillectomy/Adnoidectomy age 7 Total Hysterectomy ORIF FX Left Ankle 2012 Hospitalization History Reason Date(Month/Year) See Surgical Hx 1 Vaginal Delivery
--- OUTSIDE RECORDS SUMMARY | 2024-08-23 11:32 | XMS_ITS ---
Author Organization [facility] Address [address] [place] [address] Care Team Providers Care Biology Professor Name Role Phone RADHIAK DAVALOS M.D. Primary Care Provider Maria G Coon Unavailable [phone] REASON FOR VISIT COLP- LSIL Encounters Encounter Location Date Provider Diagnosis [facility] [address] [place] [address] 08/15/2024 Maria G Cardona Plan Of Treatment Next Appt Details Provider Name:Maria G muro, 08/31/2024 02:20:00 PM, [address], [place], [address], Provider Name:Maria G muro, 10/13/2024 01:20:00 PM, [address], [address], [place], [address], Provider Name:Maria G muro, 03/08/2025 01:20:00 PM, [address], [address], [place], [address], Progress Notes * ALIYAH HAYNESDOB:1945 (79 yo F)Acc No.[id number]:08/15/2024 Progress Note Patient:WoodyDALLASKIRSTEN RODRIGUEZNA Appointment Provider:?Maria G muro M.D. :1945???Age:79 Y???Sex:Female D ate:08/15/2024 Address:[address] [place], [place] [id number] Pcp:RADHIKA DAVALOS M.D. Subjective: * Chief Complaints: * ???1. COLP- LSIL. * Medical History:? Objective: * Vitals:? Assessment: Plan: * Treatment: * Images: Billing Information: * Visit Code:? * Procedure Codes:? * Electronic signature of Dmitri Cardona MD on 08/23/2024 at 11:32 AM EDT Sign off status: Pending * Appointment Provider:?Maria G Cardoan M.D. Date:?08/15/2024 Generated for Tori josé/Isela/Kimmeismitting on:?08/23/2024 11:32 AM EDT
== END 2024-08-23 11:09 | disposition home or self-care (01) ==
LOC: HO.HMCHD 10:19
PROVIDERS: PCP Internal Medicine; Visit Provider Physician Assistant
DX: E05.00 Thyrotoxicosis with diffuse goiter without thyrotoxic crisis or storm (principal); R41.3 Other amnesia; R41.89 Other symptoms and signs involving cognitive functions and awareness; R03.0 Elevated blood-pressure reading, without diagnosis of hypertension

== ENCOUNTER → 2024-08-23 10:19 | Outpatient (BNVA) | payer MEDICARE, SELFPAY | PROVIDERS: PCP Internal Medicine; Visit Provider Physician Assistant | DX: Z13.89 Encounter for screening for other disorder (principal) | CPT/HCPCS: 99202 ==

== ENCOUNTER 2024-08-23 11:20 | Outpatient (REF) | payer MEDICARE, SELFPAY ==
[2024-08-23 13:24] LABS: MANUAL DIFF FLAG NO
[2024-08-23 13:29] LABS: Basophils Percent Auto 0.5 % (0-2); Eosinophils Absolute Auto 0.1 X10*3/uL (0.0-0.4); Eosinophils Percent Auto 0.9 % (0-4); Hematocrit 42.6 % (37.0-47.0); Imm Gran Abs Auto 0.01 X10*3/uL (0.00-0.03); Imm Gran Pct Auto 0.2 % (0.0-0.4); Lymphocytes Absolute Auto 1.7 X10*3/uL (1.2-4.9); Lymphocytes Percent Auto 30.7 % (20-40); Mean Corpuscular HGB Conc 32.9 g/dl (31.0-35.0); Mean Corpuscular Hemoglobin 31.1 pg (27.0-33.0); Mean Corpuscular Volume 94.7 fL (80.0-98.0); Mean Platelet Volume 9.5 fL (9.4-12.3); Monocytes Absolute Auto 0.5 X10*3/uL (0.1-1.2); Monocytes Percent Auto 9.2 % (2-11); Neutrophils Absolute Auto 3.3 x10*3/uL (2.0-8.3); Neutrophils Percent Auto 58.5 % (45-73); Platelet Count 353 X10*3/uL (160-400); Red Cell Distribution Width 13.9 % (11.0-16.0); White Blood Count 5.7 X10*3/uL (4.8-10.8)
[2024-08-23 13:48] LABS: Estimated Average Glucose 108 mg/dL; Hemoglobin A1C 132.0041 umol/L; Hemoglobin A1c % 5.4 % (<6.0); Total Hemoglobin (HGBA1C) 3710.7432 umol/L
[2024-08-23 13:50] LABS: Alanine Aminotransferase 17 U/L (0-31); Albumin Level 4.2 g/dL (3.5-5.0); Anion Gap 11 (12-20); Aspartate Amino Transferase 24 U/L (5-31); Bilirubin Direct 0.3 mg/dL (0.0-0.5); Bilirubin Total 0.9 mg/dL (0.0-1.0); Blood Urea Nitrogen 14 mg/dL (9-16); Calcium 9.9 mg/dL (8.4-10.2); Carbon Dioxide 28 mmol/L (22-29); Chloride 106 mmol/L (96-108); Estimated Glomerular Filt Rate > 60; Glucose Random 96 mg/dL (60-115); Sodium 141 mmol/L (135-145)
[2024-08-23 14:11] LABS: TSH reflex Free T4 3.49 uIU/mL (0.32-4.0); Vitamin D 25-OH Total 54.7 ng/mL (>30)
[2024-08-23 14:15] LABS: Vitamin B12 311 pg/mL (200-900)
[2024-08-23 14:24] LABS: Alkaline Phosphatase 87 U/L (39-117)
[2024-08-25 06:28] LABS: A. Phagocytphilium DNA,RT-PCR NOT DETECTED (NOT DETECTED); Babesia Microti DNA, RT-PCR NOT DETECTED (NOT DETECTED); Borrelia Miyamotoi,DNA RT-PCR NOT DETECTED (NOT DETECTED); E.Chaffeensis DNA RT-PCR NOT DETECTED (NOT DETECTED); Lyme(Borrelia ssp)DNA RT-PCR NOT DETECTED (NOT DETECTED)
== END 2024-08-23 11:21 | disposition home or self-care (01) ==
LOC: HO.10HDL 11:20
PROVIDERS: Visit Provider Physician Assistant
DX: E05.00 Thyrotoxicosis with diffuse goiter without thyrotoxic crisis or storm (principal); R41.3 Other amnesia; R41.89 Other symptoms and signs involving cognitive functions and awareness; R03.0 Elevated blood-pressure reading, without diagnosis of hypertension; Z13.1 Encounter for screening for diabetes mellitus
CPT/HCPCS: 36415; 80048; 80076; 82306; 82607; 83036; 84443; 85025; 87468; 87469; 87478; 87484; 87798; 99202

== ENCOUNTER → 2024-09-08 14:54 | Outpatient (BNV) | payer MEDICARE, SELFPAY | PROVIDERS: PCP Physician Assistant; Visit Provider Radiology Diagnostic Radiology | DX: G31.9 Degenerative disease of nervous system, unspecified (principal) | CPT/HCPCS: 70551 ==

== ENCOUNTER 2024-09-08 14:55 | Outpatient (REF) | payer MEDICARE, SELFPAY ==
--- NOTE | ~2024-09-08 | MR_ITS ---
EXAMINATION: MR BRAIN WITHOUT IV CONTRAST HISTORY: MEMORY LOSS, COGNITIVE IMPAIRMENT, GRAVES DISEASE TECHNIQUE: Sagittal T1, and axial T1, FLAIR, T2, gradient echo, and diffusion weighted MR images of the brain were obtained. COMPARISON: Correlation is made with an unenhanced head CT dated 10/25/2018. FINDINGS: There is diffuse prominence of the ventricular system and cortical sulci, consistent with atrophy. Bundy/white differentiation is normal. There is no mass effect or midline shift. No intra or extra-axial fluid collections are identified. There are no foci of restricted diffusion. Normal vascular flow voids are noted in the basilar and carotid arteries. The visualized paranasal sinuses are clear. MR/MR head/brain wo con IMPRESSION: Cerebral atrophy. No acute intracranial abnormality. Electronically signed by: Dion Cunningham MD 09/09/2024 08:05 AM EDT
--- OUTSIDE RECORDS SUMMARY | 2024-09-08 17:38 | XMS_ITS | Patient Health Record ---
Author Organization [facility] Address [address] [place] [address] Care Team Providers Care Studio Operations Manager Name Role Phone Zaki Stevens MD Primary [...] Problem Status W/U Status Risk Notes Problem 320933452 Colon cancer screening (Z12.11) Active confirmed Problem 790022982 Family history of colon cancer (Z80.0) Active confirmed Problem 605107466 RUQ pain (R10.11) Active confirmed Problem 81087862 Pelvic pain (R10.2) Active confirmed Problem 483630946 Flank pain (R10.9) Active confirmed Problem 479206610 Abnormal ultrasound of gallbladder (R93.2) Active confirmed Plan Of Treatment Future Test Test Name Order Date UPPER GI ENDOSCOPY 09/30/2013 COLONOSCOPY 09/30/2013 COLONOSCOPY 07/28/2022 Insurance Providers Payer Name Payer Address Payer Phone Subscriber Number Group Number Insured Name Patient Relationship to Insured Coverage Start Date Coverage End Date MEDICARE OF [place] [address] MIN[place] VERDUZCO [id number] [phone] [id number] ALIYAH HAYNES Self - patient is the insured MEDEX ATTN CLAIMS [address] [place] [address] [id number] ALIYAH HAYNES Self - patient is the insured Medical (General) History Medical History History ICD Code Colonoscopy 01/25/14, diverticulosis, fi ve-year followup for family history Graves' disease status post JACOBO Occupational exposure to hepatitis B EGD 01/25/14, no H. pylori or Newton's esophagus pyelonephritis Surgical History Surgery Date(Month/Year) appendectomy tonsillectomy right ovarian cyst removed hysterectomy
== END 2024-09-08 14:56 | disposition home or self-care (01) ==
LOC: HO.MRI 14:55
PROVIDERS: PCP Physician Assistant; Visit Provider Physician Assistant
DX: R41.3 Other amnesia (principal); R41.89 Other symptoms and signs involving cognitive functions and awareness; E05.00 Thyrotoxicosis with diffuse goiter without thyrotoxic crisis or storm
CPT/HCPCS: 70551

== ENCOUNTER 2024-10-04 13:09 | Outpatient (AMB) | payer MEDICARE, SELFPAY ==
--- NOTE | 2024-10-04 13:11 | MHC.PC.OV ---
Vital Signs 10/04/24 13:13 10/04/24 13:23 Height 5 ft 3 in Weight 52.617 kg BMI 20.5 BP 138/58 L Blood Pressure Location Rt brachial Position Sitting Respiration 14 Pulse 74 Pulse Source Pulse Oximeter Temp 97.8 F Pulse Oximetry (%) 99 Intake Visit Reasons: 6 Week F/U Customer Management Specialist Required: No Accompanied by: Spouse Allergies rofecoxib (From VIOXX) Allergy (Mild, Verified 10/04/24 13:16) Swelling HPI HPI Comments History of Present Illness Details 79 year old female with history of hypothyroidism and cognitive impairment presents to the office today accompanied by her , Mayur, for evaluation. She was seen at last visit with MOCA 13 has been referred to Neurology/memory Clinic with upcoming appointment on 01/09. Since our last appointment, she has been taking memantine on a daily basis and has also been using Prevagen but questions whether or not this should be continued. She has not been driving. Her reports that when he is driving with her, she is focused though will request directions but does follow through without any behavioral changes. However, she does still continue to have significant issues with memory. He [place] in the [place] and she ordered food but then walked away forgetting to picking crew supervisor the food. She also misplaces things often. There is concern about driving independently. MRI of the brain negative for any evidence of ischemic injury, masses but does show some atrophy. ROS: General: No fevers, malaise, unintentional weight loss Cardiovascular: No chest pain, palpitations, or leg edema Respiratory: No shortness of breath, wheezing, cough MSK: No myalgia, back pain Neuro: No headaches, weakness, paresthesias. See HPI Skin: No rashes or lesions Exam: Constitutional - Awake and Alert, No apparent distress Eyes - PERRLA, EOMI Cardiovascular - S1S2, RRR, No edema Respiratory - Normal lung expansion, Normal respiratory effort, No respiratory distress, CTA bilaterally Extremities - no calf tenderness bilaterally, no swelling Skin - Warm/Dry Neurological - Alert & oriented to self and corrects to place after initially stating wrong locations, CN II-XII in tact [facility] Medical History (Updated 08/24/24 @ 08:46 by EFRAÍN Car) Cognitive impairment Exposure to hepatitis B Graves disease Diverticulosis Surgical History (Updated 10/03/24 @ 16:20 by Yael Nava) H/O removal of cyst H/O: hysterectomy Hx of tonsillectomy History of appendectomy H/O esophagogastroduodenoscopy H/O colonoscopy (~08/14/22) Social History Patient Tobacco Use Status: Former Tobacco user Second Hand Smoke Exposure: No Questionnaire PHQ-9 Over the last 2 weeks, how often have you been bothered by any of the following problems? 1. Little interest or pleasure in doing things: nearly every day 2. Feeling down, depressed, or hopeless: not at all 3. Trouble falling or staying asleep, or sleeping too much: not at all 4. Feeling tired or having little energy: not at all 5. Poor appetite or overeating: not at all 6. Feeling bad about yourself - or that you are a failure or have let yourself or your family down: not at all 7. Trouble concentrating on things, such as reading the newspaper or watching television: not at all 8. Moving or speaking so slowly that other people could have noticed. Or the opposite - being so fidgety or restless that you have been moving around a lot more than usual: not at all 9. Thoughts that you would be better off or of hurting yourself in some way: not at all Total score: 3 Source: Developed by Drs. Dion Pradhan, Marquita Reyes, Wali Rae and colleagues, with an educational remberto from [employer]. Thrive Questionnaire Date Thrive assessed: 10/04/24 I am a: Patient What is your living situation today?: I have a steady place to live Within the past 12 months, did the food you bought not last and you didn't have the money to get more?: Never true Within the past 12 months, did you worry whether your food would run out before you got money to buy more?: Never true Do you have trouble paying for medicines?: No Do you have trouble getting transportation to medical appointments?: No Do you have trouble paying your heating and electricity bill?: No Do you have trouble taking care of your child, family member or friend?: No Do you have trouble with day-to-day activities such as bathing, preparing meals, shopping, managing finances, etc.?: No Are you currently unemployed and looking for a job?: No Are you interested in more education?: No THRIVE Score: 0 ISIDRO-7 AMB Questionnaire ISIDRO-7 Date ISIDRO - 7 assessed: 10/04/24 Feeling nervous, anxious, or on edge: 0 = Not at all Not being able to stop or control worryin = Not at all Worrying too much about different things: 0 = Not at all Trouble relaxin = Not at all Being so restless that it is hard to sit still: 0 = Not at all Becoming easily annoyed or irritable: 0 = Not at all Feeling afraid as if something awful might happen: 0 = Not at all Total ISIDRO-7 score (0-4 normal; 5-9 mild; 10-14 moderate; 15-21 severe): 0 Source: Developed by Drs. Dion Pradhan, Marquita Reyes, Wali Rae and colleagues, with an educational remberto from [employer]. Physical exam (Primary Care) Vital Signs: Last Vital Signs Temp 97.8 F 10/04/24 13:13 Pulse 74 10/04/24 13:13 Resp 14 10/04/24 13:13 BP 138/58 L 10/04/24 13:13 Pulse Ox 99 10/04/24 13:13 BMI result Body Mass Index 20.5 Tobacco/Smoking Status: Tobacco use Status Patient Tobacco Use Status Former Tobacco user 10/04/24 13:20 Coding Level of Care Code Est Pt Level 3 (53127) Diagnoses Cognitive impairment R41.89 Memory loss R41.3 Assessment & Plan Assessment & Plan (1) Cognitive impairment: Code(s): R41.89 - Other symptoms and signs involving cognitive functions and awareness Category: Medical Plan: Continue memantine. Can discontinue Prevagen. Continue with memory aids. Would not recommend driving independently. Follow-up with Neurology/memory clinic. MRI, labs, and MOCA reviewed with patient/ (2) Memory loss: Code(s): R41.3 - Other amnesia Category: Medical Plan: as above
[2024-10-04 13:13] VITALS: BP 138/58; PULSE 74; RESP 14; TEMP 36.6; O2SAT 99; BMI 20.5
--- OUTSIDE RECORDS SUMMARY | 2024-10-04 14:13 | XMS_ITS | Patient Health Record ---
Author Organization [facility] Address [address] [place] [address] [address] [place] [address] Care Team Providers Care Parts Designer Name Role Phone RADHIKA DAVALOS M.D. Primary Care Provider Maria G Coon Unavailable [phone] Allergies Allergen (clinical drug ingredient) Drug/Non Drug Allergy documented on EMR Reaction Allergy Type Onset Date Status rofecoxib Vioxx (uncoded) Lips Swell Allergy Act van Results Component Value Reference Range Notes PDF Report Reviewed date:04/21/2024 05:15:26 PM Interpretation: Performing Lab:[facility], [address] [place] [address], Phone - [phone], [facility] Notes/Report: No. of containers..01 ThinPrep Vial Other..............Post Menopausal Dates / Results....07/30/22 NIL, + HPV LMP / Prev Treat...Hyst Clinical Information:Vaginal, LMP: Hyst, + HPV [id number] IGP No Culture 30 Plus Reviewed date:09/01/2024 08:34:55 AM Interpretation: Performing Lab:[facility], [address] [place] [address], Phone - [phone], [facility]Report: Clinical Information:Vaginal, LMP: Hyst, + HPV [id number] LMP / Prev Treat...Hyst Dates / Results....07/30/22 NIL, + HPV Other..............Post Menopausal No. of containers..01 ThinPrep Vial DIAGNOSIS: EPITHELIAL CELL ABNORMALITY. LOW GRADE SQUAMOUS INTRAEPITHELIAL LESION (LSIL). Specimen adequacy: Satisfact ory for evaluation. No endocervical component is identified. Clinician provided ICD10: R8 7.810 Performed by: Ramses plascencia, Business Analytics Director (ASCP) Electronically signed by: Gaurang Yo MD, [...] Criteria not met, HPV Genotype not performed. Reason For Referral No Information Medications Medication SIG (Take, Route, Frequency, Duration) Notes Start Date End Date Status Synthroid 100 MCG 1 tablet on an empty stomach in the morning Orally Once a day Active Multi-Vitamin Daily - 1 tablet Orally Once a day Active Hair Vitamins - as directed Orally Active Estradiol 0.1 MG/GM 1 GRAM VAGINA AND VU LVA Two times a Week; Duration: 90 days 01/19/2024 Active Estradiol Vaginal Cream 0.01% 1 Gram to the affected area Vaginal/Vulva Twice a week; Duration: 03/01/2024 Active Calcium 1 tab Oral Active Fosamax 70 MG 1 tablet Orally WEEK LY; Duration: 07/30/2022 Active Clobetasol Propionate 0.05 % 1 application to affected area Externally once a night for a month, then q other night for another month, then 2 to 3 times per week; Duration: 08/31/2024 Active Clobetasol Propionate 0.05 % 1 application to affected area Externally once a night; Duration: 30 03/01/2024 Active Estradiol Vaginal Cream 0.01% 1 Gram to the affected area Vaginal/Vulva Twice a week; Duration: 08/31/2024 Active Social History Tobacco Use: Social History [...] test positive, high risk on vaginal specimen (349666398187565) Cervical high risk human papillomavirus (HPV) DNA test positive (R87.810) Active confirmed Problem Postmenopausal atrophic vaginitis (00162481) Postmenopausal atrophic vaginitis (N95.2) Active confirmed Problem Age-related osteoporosis (005521729) Age-related osteoporosis without current pathological fracture (M81.0) Active confirmed Problem Localized morphea (224055591) 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) Active confirmed Problem Disorder of breast (48914202) Disorder of breast, unspecified (N64.9) Active confirmed Problem Atrophy of vulva (379027651) 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) Active confirmed Problem Human papillomavirus deoxyribonucleic acid test positive, high risk on vaginal specimen (480557686322835) Vaginal high risk human papillomavirus (HPV) DNA test positive (R87.811) Active confirmed Problem History of dysplasia of cervix (189572614) Personal history of cervical dysplasia (Z87.410) Active confirmed Problem Vitamin D deficiency (51500386) Vitamin D deficiency, unspecified (E55.9) Active confirmed Vital Signs Temperature 97.8 degrees Fahrenheit 08/31/2024 Blood pressure diastolic 72 mm Hg 08/31/2024 Height 64.75 in 08/31/2024 Blood pressure systolic 112 mm Hg 08/31/2024 Weight 115 lbs 08/31/2024 BMI 19.28 kg/m2 08/31/2024 Encounters Encounter Location Date Provider Diagnosis Total [address] [address] 03/01/2024 Maria G Cardona Encounter for gynecological examination (general) (routine) with abnormal findings Z01.411 ; Encounter for screening mammogram for malignant neoplasm of breast Z12.31 ; Age-related osteoporosis without current pathological fracture M81.0 ; Personal history of cervical dysplasia Z87.410 ; Lichen sclerosus et atrophicus L90.0 ; Atrophy of vulva N90.5 ; Postmenopausal atrophic vaginitis N95.2 and Dense breasts, unspecified R92.[address] [address] 04/13/2024 Maria G Cardona Lichen sclerosus et atrophicus L90.0 ; Atrophy of vulva N90.5 and Cervical high risk human papillomavirus (HPV) DNA test positive R87.[address] [address] 08/31/2024 Maria G Cardona Low grade squamous intraepithelial lesion on cytologic smear of vagina (LGSIL) R87.622 ; Vaginal high risk human papillomavirus (HPV) DNA test positive R87.811 ; Lichen sclerosus et atrophicus L90.0 and Atrophy of vulva N90.[address] [address] 01/19/2024 Maria G Cardona [address] [address] 04/12/2024 Maria G Cardona [address] [address] 06/23/2024 Maria G Cardona Assessments Encounter Date [...] MONTH AND INCREASE OR DECREASE DOSE NEEDED. 08/31/2024 Low grade squamous intraepithelial lesion on cytologic smear of vagina (LGSIL) (ICD-10 - R87.622) DISCUSSED NORMAL FINDINGS ON COLPOSCOPY. NO BIOPSIES WERE PERFORMED. REPEAT PAP TEST IN A YEAR. 08/31/2024 Vaginal high risk human papillomavirus (HPV) DNA test positive (ICD-10 - R87.811) DISCUSSED POSITIVE HR HPV AND ITS IMPLICATIONS. 04/13/2024 Atrophy of vulva (ICD-10 - N90.5) [...] 20'S AND NEGATIVE PAP TESTS SINCE THEN. 08/31/2024 Lichen sclerosus et atrophicus (ICD-10 - L90.0) SHOWED PAT LESIONS AND ADVISED HER TO APPLY CLOBETASOL OINTMENT NIGHTLY FOR A MONTH, THEN Q OTHER NIGHT FOR ANOTHER MONTH, THEN THRICE A WEEK. WRITTEN INSTRUCTIONS WERE GIVEN. RTO IN 6 MONTHS. 08/31/2024 Atrophy of vulva (ICD-10 - N90.5) DISCUSSED VULVAR ATROPHY AND ADVISED PAT TO APPLY ESTRADIOL CREAM TO VULVA TWICE WEEKLY. DETAILED INSTRUCTIONS WERE GIVEN. SHE HAS BEEN APPLYING THIS CREAM INTRAVAGINALLY FOR VAGINAL ATROPHY. 03/01/2024 Lichen sclerosus et atrophicus (ICD-10 - [...] 25OH VITAMIN D 06/22/2020 COMPREHENSIVE METABOLIC PANEL 06/22/2020 COMPREHENSIVE METABOLIC PANEL 01/07/2017 N-TELOPEPTIDE CROSS 06/22/2020 N-TELOPEPTIDE CROSS 01/07/2017 PTH, INTACT 01/07/2017 PTH, INTACT 06/22/2020 TSH 06/22/2020 TSH 01/07/2017 BONE DENSITY 07/30/2022 BONE DENSITY 03/01/2024 BONE DENSITY 03/05/2020 MM Digital Mammo Screening 07/30/2022 MM Digital Mammo Screening 03/01/2024 Next Appt Details Provider Name:Maria G Mcleod Dannymelissa jina, 03/08/2025 01:20:00 PM, [address] [place] [address], [facility] [address], [place], [address], Insurance Providers Payer Name Payer Address Payer Phone Subscriber Number Group Number Insured Name Patient Relationship to Insured Coverage Start Date Coverage End Date MEDICARE [address] MINNA BAILEY [id number] DALLASALIYAH Self - patient is the insured MEDEX [address] [place] [address] [id number] ALIYAH HAYNES Self - patient is [...] Age-related osteoporosis without current pathological fracture M81.0 Low grade squamous intraepit helial lesion on cytologic smear of cervix (LGSIL) R87.612 Dense breasts, unspecified R92.30 Surgical History Surgery Date(Month/Year) Appendectomy 1978 Colonoscopy Iridotomy 2017 Tonsillectomy/Adnoidectomy age 7 Total Hysterectomy ORIF FX Left Ankle 2012 Hospitalization History Reason Date(Month/Year) See Surgical Hx 1 Vaginal Delivery
--- OUTSIDE RECORDS SUMMARY | 2024-10-04 14:13 | XMS_ITS | Patient Health Record ---
Author Organization [facility] Address [address] [place] [address] Care Team Providers Care Basketballs And Footballs Reverser Name Role Phone Zaki Stevens MD Primary Care Provider Nayan Lui Jr Unavailable [phone] Allergies Allergen (clinical drug ingredient) Drug/Non Drug [...] Problem Status W/U Status Risk Notes Problem 299457412 Colon cancer screening (Z12.11) Active confirmed Problem 860080316 Family history of colon cancer (Z80.0) Active confirmed Problem 939571181 RUQ pain (R10.11) Active confirmed Problem 66680382 Pelvic pain (R10.2) Active confirmed Problem 462595252 Flank pain (R10.9) Active confirmed Problem 144747981 Abnormal ultrasound of gallbladder (R93.2) Active confirmed Plan Of Treatment Future Test Test Name Order Date UPPER GI ENDOSCOPY 09/30/2013 COLONOSCOPY 09/30/2013 COLONOSCOPY 07/28/2022 Insurance Providers Payer Name Payer Address Payer Phone Subscriber Number Group Number Insured Name Patient Relationship to Insured Coverage Start Date Coverage End Date MEDICARE OF [place] [address] [place] VERDUZCO [phone] [id number] ALIYAH HAYNES Self - patient is the insured MEDEX ATTN CLAIMS [address] [place] [address] [id number] ALIYAH HAYNES Self - patient is the insured Medical (General) History Medical History History ICD Code Colonoscopy 01/25/14, diverticulosis, fi ve-year followup for family history Graves' disease status post JACOBO Occupational exposure to hepatitis B EGD 01/25/14, no H. pylori or Newton's esophagus pyelonephritis Surgical History Surgery Date(Month/Year) appendectomy tonsillectomy right ovarian cyst removed hysterectomy
== END 2024-10-04 13:46 | disposition home or self-care (01) ==
LOC: HO.HMCHD 13:10
PROVIDERS: PCP Physician Assistant; Visit Provider Physician Assistant
DX: R41.89 Other symptoms and signs involving cognitive functions and awareness (principal); R41.3 Other amnesia

== ENCOUNTER → 2024-10-04 13:09 | Outpatient (BNVA) | payer MEDICARE, SELFPAY | PROVIDERS: PCP Physician Assistant; Visit Provider Physician Assistant | DX: R41.89 Other symptoms and signs involving cognitive functions and awareness (principal); R41.3 Other amnesia; Z13.30 Encounter for screening examination for mental health and behavioral disorders, unspecified | CPT/HCPCS: 96127; 99212 ==

== ENCOUNTER 2025-01-09 12:02 | Outpatient (AMB) | payer MEDICARE, SELFPAY ==
--- OUTSIDE RECORDS SUMMARY | 2024-08-15 06:40 | XMS_ITS ---
Author Organization [facility] Address [address] [place] [address] Care Team Providers Care Wash Oil Pump Operator Name Role Phone RADHIKA DAVALOS M.D. Primary Care Provider Maria G Coon Unavailable [phone] REASON FOR VISIT COLP- LSIL Encounters Encounter Location Date Provider Diagnosis [facility] [employer] [address] [place] [address] [address] [place] [address] 08/15/2024 Maria G Cardona Plan Of Treatment Next Appt Details Provider Name:Maria G muro, 03/08/2025 01:20:00 PM, [address], [address], [place], [address], Progress Notes * AILYAH HAYNESDOB:1945 (79 yo F)Acc No.[id number]:08/15/2024 Progress Note Patient: ALIYAH DAVIS Appointment Provider: Amita Cardona M.D. :1945 A ge:79 Y S ex:Female Date:08/15/2024 Address:[address] [place], [place] [id number] Pcp:RADHIKA DAVALOS M.D. Subjective: * Chief Complaints: * 1 . COLP- LSIL. * Medical History: Objective: * Vitals: Assessment: Plan: * Treatment: * Images: Billing Information: * Visit Code: * Procedure Codes: * Electronic signature of Dmitri Cardona MD on 01/09/2025 at 02:32 PM EDT Sign off status: Pending * Appointment Provider: Amita Cardona M.D. Date: 0 08/15/2024 Generated for oTri josé/Isela/Brooke on: 1 02:32 PM EDT
--- OUTSIDE RECORDS SUMMARY | 2024-10-13 09:20 | XMS_ITS ---
Author Organization [facility] Address [address] [place] [address] Care Team Providers Care Heel Caser Name Role Phone RADHIKA DAVALOS M.D. Primary Care Provider Maria G Coon Unavailable [phone] REASON FOR VISIT 6 month f/u Encounters Encounter Location Date Provider Diagnosis [facility] [address] [place] [address] [address] [place] [address] 10/13/2024 Maria G Cardona Plan Of Treatment Next Appt Details Provider Name:Maria G muro, 03/08/2025 01:20:00 PM, [address] [facility], [address], [place], [address], Progress Notes * D[place]AS KIRSTENKATRINDOB:1945 (79 yo F)Acc No.[id number]:10/13/2024 PROGRESS NOTES Patient: ALIYAH DAVIS Appointment Provider: Amita Cardona M.D. :1945 A ge:79 Y S ex:Female Date:10/13/2024 Address:[address] [place], [place] [id number] Pcp:RADHIKA DAVALOS M.D. Subjective: * Chief Complaints: [...] 10/13/2024 Generated for Tori josé/Isela/Brooke on: 1 02:32 PM EDT
--- NOTE | 2025-01-09 12:18 | MHC.OFFVIS ---
Vital Signs 01/09/25 12:20 Height 5 ft 3 in Weight 118 lb 2 oz BMI 20.9 BP 112/78 Blood Pressure Location Rt brachial Position Sitting Pulse 81 Pulse Source Pulse Oximeter Pulse Oximetry (%) 98 Oxygen Delivery Method Room Air Intake Visit Reasons: INP-Cognitive Intake Note: Cognitive impairment Patient Financial Representative Required: No Accompanied by: Spouse Allergies rofecoxib (From VIOXX) Allergy (Mild, Verified 01/09/25 12:19) Swelling Medication List - Last Reconciled 01/09/25 by Bina Arriaga MD cholecalciferol (vitamin D3) 350 mcg PO QWEEK clobetasol 0.05% topical BEDTIME estradiol 0.01%(0.1mg/gram) 1 g vaginal 2XW levothyroxine 100 mcg PO DAILY mecobalamin (vitamin B12) (B12 Active) 1,000 mcg PO DAILY memantine 7 mg PO DAILY [Multi Vitamin ] HPI Comments Details: 79y/o Right Handed female comes here for cognitive issues accompanied by her spouse. Her noticed that she is having issues with short term memory , trouble with executive dysfunction like using cellular phone 2 years ago and has progressed. she started memantine 1 year ago and the cognition seems stable. The patient does not feel she has any issues. she is frustrated with that he suggested cognitive evaluation 5 years ago. Her was diagnosed with metastatic prostrate cancer- and he is stressed out. she drives with no issues she cooks independant in all her ADLS. 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 [facility] Medical History (Updated 01/09/25 @ 13:06 by Bina Arriaga MD) Dementia Cognitive impairment Exposure to hepatitis B Graves disease Diverticulosis Surgical History H/O removal of cyst H/O: hysterectomy Hx of tonsillectomy History of appendectomy H/O esophagogastroduodenoscopy H/O colonoscopy (~08/14/22) Social History Patient Tobacco Use Status: Former Tobacco user Second Hand Smoke Exposure: No Physical Exam Vital Signs: Last Vital Signs Pulse 81 01/09/25 12:20 BP 112/78 01/09/25 12:20 Pulse Ox 98 01/09/25 12:20 Oxygen Delivery Method Room Air 01/09/25 12:20 BMI result Body Mass Index 20.9 Const General: cooperative, healthy appearing, comfortable, no acute distress and anxious Nutritional Appearance: average body habitus Orientation/consciousness: oriented to person and oriented to place Eyes Pupils: Equal, round and reactive pupils present Neuro General: oriented to person, oriented to place, gait normal, moves all extremities and no focal motor deficits Cranial nerves: Yes Facial sensation intact/muscles of mastication intact, Yes Equal, round and reactive pupils present, Yes Bilaterally intact EOM present, Yes Nystagmus not present, Yes Normal facial strength present, Yes Midline tongue present and Yes Ability to bilaterally elevate shoulders present Cognition (Neuro): abnormal cognition Gait exam (Neuro): Normal gait present Motor exam (neuro): 5/5 motor strength present throughout and Normal motor muscle tone present throughout Deep tendon reflexes (DTR's): Right triceps reflex intensity grade: 1+, Left triceps reflex intensity grade: 1+, Rt Biceps (C5, C6): 1+, Left biceps reflex intensity grade: 1+, Right brachioradialis reflex intensity grade: 1+, Left brachioradialis reflex intensity grade: 1+, Right patellar reflex intensity grade: 1+ and Left patellar reflex intensity grade: 1+ Coordination: [id number] test normal Psych Affect: Anxious affect present Assessment & Plan Assessment & Plan (1) Dementia: Comment: radha early ALzheimers Code(s): F03.90 - Unspecified dementia, unspecified severity, without behavioral disturbance, psychotic disturbance, mood disturbance, and anxiety Category: Medical Qualifiers: Dementia type: Alzheimer's Alzheimer's disease onset: late onset Dementia severity: mild Dementia behavioral or psychological symptom: with anxiety Qualified Code(s): G30.1 - Alzheimer's disease with late onset; F02.A4 - Dementia in other diseases classified elsewhere, mild, with anxiety Plan Reviewed MRI and labs suggested to start Vit B 12 Titrate namenda to 28 mg qd APOE to determine the risk for AD and bleeding with Anti amyloid therapy PET AMYLOID to confirm AD- patient is a likely candidate for anti amyloid therapy escitalopram 10mg qd for naxiety Orders: Orders [facility] F03.90 - Unspecified dementia, unspecified severity, without behavioral disturbance, psychotic disturbance, mood disturbance, and anxiety PET Brain beta amyloid Today F02.A4 - Dementia in other diseases classified elsewhere, mild, with anxiety, G30.1 - Alzheimer's disease with late onset Medications: New escitalopram oxalate 10 mg PO DAILY 30 tabs 6RF memantine after 30 day course of 14mg 21 mg PO DAILY 30 ea 0RF memantine 28 mg PO DAILY 30 ea 6RF Changed From memantine 7 mg PO DAILY 90 ea 0RF To memantine 14 mg PO DAILY 30 ea 0RF Coding Level of Care Code New Pt Level 4 (99451) Complex EM visit Add On G2211 Diagnoses Mild late onset Alzheimer's dementia with anxiety G30.1; F02.A4 Dementia type: Alzheimer's Alzheimer's disease onset: late onset Dementia severity: mild Dementia behavioral or psychological symptom: with anxiety MOCA Assessment Visuospatial/Executive Was patient able to complete Number to Letter matching?: No Was the patient able to copy the cube?: No Clock: Contour: Yes Clock: Numbers: Yes Clock: Hands: No Naming Was the patient able name the Lion?: Yes Was the patient able to name the Rhinoceros?: Yes Was the patient able to name the Camel?: Yes Memory 1st Trial - Select the words the patient was able to remember: Face, Velvet, Scientology, Aide and Red 2nd Trial - Select the words the patient was able to remember: Face, Velvet and Scientology Attention Was the patient able to repeat [2 1 8 5 4] in forward order?: Yes Was the patient able to repeat [7 4 2] in backward order?: Yes Was the patient able to identify the A's with <2 errors?: Yes Serial 7 subtraction starting at 100 result: 0 correct (0 points) Language Select the phrases the patient was able to repeat: I only know that Hari is the one to help today and The cat always hid under the couch when dogs were in the room Was the patient able to name more than 11 words that start with the letter F?: Yes Abstraction Select all that the patient was able to find the similarity: Train - Bicycle and Watch - Ruler Delayed Recall Multi Choice Cue - Select the words the patient was able to remember: Scientology Orientation Select the following items that the patient knew: Date, Year, Day, Place and City
[2025-01-09 12:20] VITALS: BP 112/78; PULSE 81; O2SAT 98; BMI 20.9
--- OUTSIDE RECORDS SUMMARY | 2025-01-09 14:32 | XMS_ITS | Patient Health Record ---
Author Organization [facility] Address [address] [place] [address] Care Team Providers Care Control Tower Radio Operator Name Role Phone Rodney (RETIRED) Zaki ODELL Primary Care Provide Nayan Mcdonald Jr Unavailable Allergies Allergen (clinical drug ingredient) [...] Problem Status W/U Status Risk Notes Problem 866994488 Colon cancer screening (Z12.11) Active confirmed Problem 866471372 Family history of colon cancer (Z80.0) Active confirmed Problem 918444533 RUQ pain (R10.11) Active confirmed Problem 44867903 Pelvic pain (R10.2) Active confirmed Problem 475502676 Flank pain (R10.9) Active confirmed Problem 636600000 Abnormal ultrasound of gallbladder (R93.2) Active confirmed Plan Of Treatment Future Test Test Name Order Date UPPER GI ENDOSCOPY 09/30/2013 COLONOSCOPY 09/30/2013 COLONOSCOPY 07/28/2022 Insurance Providers Payer Name Payer Address Payer Phone Subscriber Number Group Number Insured Name Patient Relationship to Insured Coverage Start Date Coverage End Date MEDICARE OF [place] [address] [place] [phone] [id number] ALIYAH HAYNES Self - patient is the insured MEDEX ATTN CLAIMS [address] [place] [address] [id number] ALIYAH HAYNES Self - patient is the insured Medical (General) History Medical History History ICD Code Colonoscopy 01/25/14, diverticulosis, fi ve-year followup for family history Graves' disease status post JACOBO Occupational exposure to hepatitis B EGD 01/25/14, no H. pylori or Newton's esophagus pyelonephritis Surgical History Surgery Date(Month/Year) appendectomy tonsillectomy right ovarian cyst removed hysterectomy
--- OUTSIDE RECORDS SUMMARY | 2025-01-09 14:32 | XMS_ITS | Patient Health Record ---
Author Organization [facility] [facility] Address [address] [place] [address] [address] [place] [address] Care Team Providers Care Peer Specialist Name Role Phone RADHIKA DAVALOS M.D. Primary Care Provider Maria G Coon Unavailable [phone] Allergies Allergen (clinical drug ingredient) Drug/Non Drug Allergy documented on EMR Reaction Allergy Type Onset Date Status rofecoxib Vioxx (uncoded) Lips Swell Allergy Act van Results Component Value Reference Range Notes PDF Report Reviewed date:04/21/2024 05:15:26 PM Interpretation: Performing Lab:[facility], [address] [place] [address], Phone - [phone], [facility] Notes/Report: Clinical Information:Vaginal, LMP: Hyst, + HPV [id number] LMP / Prev Treat...Hyst Dates / Results....07/30/22 NIL, + HPV Other..............Post Menopausal No. of containers..01 ThinPrep Vial [id number] IGP No Culture 30 Plus Reviewed date:09/01/2024 08:34:55 AM Interpretation: Performing Lab:[facility], [address] [place] [address], Phone - [phone], Director - [facility] Notes/Report: Clinical Information:Vaginal, LMP: Hyst, + HPV [id number] LMP / Prev Treat...Hyst Dates / Results....07/30/22 NIL, + HPV Other..............Post Menopausal No. of containers..01 ThinPrep Vial DIAGNOSIS: EPITHELIAL CELL ABNORMALITY. LOW GRADE SQUAMOUS INTRAEPITHELIAL LESION (LSIL). Specimen adequacy: Satisfact ory for evaluation. No endocervical component is identified. 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) Active confirmed Problem Disorder of breast (81249278) Disorder of breast, unspecified (N64.9) Active confirmed Problem Atrophy of vulva (784673237) 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) Active confirmed Problem Human papillomavirus deoxyribonucleic acid test positive, high risk on vaginal specimen (668228878083059) Vaginal high risk human papillomavirus (HPV) DNA test positive (R87.811) Active confirmed Problem History of dysplasia of cervix (259692513) Personal history of cervical dysplasia (Z87.410) Active confirmed Problem Vitamin D deficiency (23410305) Vitamin D deficiency, unspecified (E55.9) Active confirmed Vital Signs Temperature 97.8 degrees Fahrenheit 08/31/2024 Blood pressure diastolic 72 mm Hg 08/31/2024 Height 64.75 in 08/31/2024 Blood pressure systolic 112 mm Hg 08/31/2024 Weight 115 lbs 08/31/2024 BMI 19.28 kg/m2 08/31/2024 Encounters Encounter Location Date Provider Diagnosis Total [address] [address] 03/01/2024 Maria G Cardona Encounter for gynecological examination (general) (routine) with abnormal findings Z01.411 ; Encounter for screening mammogram for malignant neoplasm of breast Z12.31 ; Age-related osteoporosis without current pathological fracture M81.0 ; Personal history of cervical dysplasia Z87.410 ; Lichen sclerosus et atrophicus L90.0 ; Atrophy of vulva N90.5 ; Postmenopausal atrophic vaginitis N95.2 and Dense breasts, unspecified R92.[address] [address] 04/13/2024 Maria G Cardona Lichen sclerosus et atrophicus L90.0 ; Atrophy of vulva N90.5 and Cervical high risk human papillomavirus (HPV) DNA test positive R87.[address] [address] 08/31/2024 Maria G Cardona Low grade squamous intraepithelial lesion on cytologic smear of vagina (LGSIL) R87.622 ; Vaginal high risk human papillomavirus (HPV) DNA test positive R87.811 ; Lichen sclerosus et atrophicus L90.0 and Atrophy of vulva N90.[address] [address] 01/19/2024 Maria G Cardona [address] [address] 04/12/2024 Maria G Cardona [address] [address] 06/23/2024 Maria G Cardona Assessments Encounter Date [...] 07/30/2022 MAMMOGRAM, SCREENING 03/01/2024 25OH VITAMIN D 06/22/2020 25OH VITAMIN D 01/07/2017 25OH VITAMIN D 02/12/2017 COMPREHENSIVE METABOLIC PANEL 01/07/2017 COMPREHENSIVE METABOLIC PANEL 06/22/2020 N-TELOPEPTIDE CROSS 06/22/2020 N-TELOPEPTIDE CROSS 01/07/2017 PTH, INTACT 06/22/2020 PTH, INTACT 01/07/2017 TSH 01/07/2017 TSH 06/22/2020 BONE DENSITY 07/30/2022 BONE DENSITY 03/01/2024 BONE DENSITY 03/05/2020 MM Digital Mammo Screening 07/30/2022 MM Digital Mammo Screening 03/01/2024 Next Appt Details Provider Name:Maria G Mcleod Dannymelissa jina, 03/08/2025 01:20:00 PM, [address] [place] [address], [facility] [address], [place], [address], Insurance Providers Payer Name Payer Address Payer Phone Subscriber Number Group Number Insured Name Patient Relationship to Insured Coverage Start Date Coverage End Date MEDICARE [address] MINNA BAILEY [id number] DALLASALIYAH Self - patient is the insured MEDEX [address] [place] [address] [id number] ALIYAH HAYNES Self - patient is [...]
== END 2025-01-09 13:08 | disposition home or self-care (01) ==
LOC: HO.HSMS 12:02
PROVIDERS: PCP Physician Assistant; Visit Provider Psychiatry & Neurology Neurology
DX: G30.1 Alzheimer's disease with late onset (principal); F02.A4 Dementia in other diseases classified elsewhere, mild, with anxiety
CPT/HCPCS: 99204; G2211

== ENCOUNTER → 2025-01-09 12:02 | Outpatient (BNVA) | payer MEDICARE, SELFPAY | PROVIDERS: PCP Physician Assistant; Visit Provider Psychiatry & Neurology Neurology | DX: G30.1 Alzheimer's disease with late onset (principal); F02.A4 Dementia in other diseases classified elsewhere, mild, with anxiety | CPT/HCPCS: 99202 ==

== ENCOUNTER 2025-02-10 16:23 | Outpatient (REF) | payer MEDICARE, SELFPAY | END 2025-02-10 16:24 | disposition home or self-care (01) | LOC: HO.LAB 16:23 | PROVIDERS: PCP Physician Assistant; Visit Provider Psychiatry & Neurology Neurology | DX: Z13.89 Encounter for screening for other disorder (principal) ==

== ENCOUNTER 2025-02-17 10:50 | Outpatient (REF) | payer MEDICARE, SELFPAY ==
[2025-02-22 19:04] LABS: Apolipoprotein E Genotype E3/E3
== END 2025-02-17 10:51 | disposition home or self-care (01) ==
LOC: HO.LAB 10:50
PROVIDERS: PCP Physician Assistant; Visit Provider Psychiatry & Neurology Neurology
DX: Z13.89 Encounter for screening for other disorder (principal)
CPT/HCPCS: 36415; 82542

== ENCOUNTER 2025-03-08 11:23 | Outpatient (AMB) | payer MEDICARE, SELFPAY ==
[2025-03-08 11:28] VITALS: BP 122/76; PULSE 87; TEMP 36.6; O2SAT 99; BMI 23.4
--- NOTE | 2025-03-08 11:28 | A.OFFPC_ITS ---
Vital Signs 03/08/25 11:28 Height 5 ft 3 in Weight 59.874 kg BMI 23.4 BP 122/76 Blood Pressure Location Rt brachial Position Sitting Pulse 87 Pulse Source Pulse Oximeter Temp 97.9 F Temp Source Temporal Artery Scan Pulse Oximetry (%) 99 Oxygen Delivery Method Room Air Intake Visit Reasons: Discharge F/U & 5 Month F/U Accompanied by: Spouse Allergies rofecoxib (From VIOXX) Allergy (Mild, Verified 03/08/25 11:32) Swelling Medication List - Last Reconciled 03/08/25 by EFRAÍN Car clobetasol 0.05% topical BEDTIME escitalopram oxalate 10 mg PO DAILY estradiol 0.01%(0.1mg/gram) 1 g vaginal 2XW food supplemt, lactose-reduced (Ensure Original) Consume one drink orally daily.; levothyroxine 100 mcg PO DAILY magnesium oxide 400 mg PO DAILY mecobalamin (vitamin B12) (B12 Active) 1,000 mcg PO DAILY memantine 28 mg PO DAILY [Multi Vitamin ] oxycodone 2.5 mg PO Q6H PRN Tobacco use date assessed: 03/08/25 Fall risk assessment: 1 Fall in past year Last assessed Fall Risk: 03/08/25 Dental Screening Dental Screen Date: 03/08/25 Did you have a dental visit in the last 12 months?: Yes Did you have a dental problem in the last 6 months where you did not have access to dental care?: No HPI HPI Comments History of Present Illness Details 79 year old female with history of hypot hyroidism and Alzheimers presents to the office today accompanied by her , Mayur, for post hospital evaluation. Sustained mechanical fall after tripping on wires while cleaning behind a couch landing on the left side. No headstrike or LOC. Underwent ORIF left hip due to femoral neck fracture at [facility]. Was discharged to [facility] rehab and discharged 03/03. Post-operatively completed 20 day course lovenox 40mg BID at [facility] and is now taking aspirin 81mg bid. Discharged from rehab with [facility] at home. Pain is reasonably controlled. Ambulating with walker. No further falls. Alzheimer's dementia- evaluated several times in office and referred to neurology. MOCA in the office 13. Did undergo PET confirming Alzheimers diagnosis. Started on memantine and escitalopram. Will be transferring care to [facility] in [place] due to convenience as that is where her 's cancer treatments are performed. She is not driving. Hypothyroidism- levothyroxine 100mg Concerns: WATKINS ongoing several days. No sob at rest. No lightheadedness, palpitations, chest pain, calf pain or swelling Weight loss ROS: see hpi Exam: Constitutional - Awake and Alert, No apparent distress Eyes - PERRLA, EOMI Cardiovascular - S1S2, RRR, No edema Respiratory - Normal lung expansion, Normal respiratory effort, No respiratory distress, CTA bilaterally Extremities - no calf tenderness bilaterally, no swelling Skin - Warm/Dry Neurological - Alert & oriented [facility] Medical History (Updated 03/09/25 @ 14:39 by EFRAÍN Car) Alzheimer's dementia Fracture of femoral neck, left Pulmonary embolism Dementia Cognitive impairment Exposure to hepatitis B Graves disease Diverticulosis Surgical History H/O removal of cyst H/O: hysterectomy Hx of tonsillectomy History of appendectomy H/O esophagogastroduodenoscopy H/O colonoscopy (~08/14/22) Family History (Updated 03/08/25 @ 11:38 by Lina Horvath MA) Mother No problems noted. Father No problems noted. Social History Housing: House Patient Tobacco Use Status: Former Tobacco user e-Cigarette/Vaping Use: Former Use Second Hand Smoke Exposure: No service: No Current occupational status: retired Cognitive needs: Yes (walker) Hearing needs: No Vision needs: Yes (rxx glasses) Questionnaire PHQ-9 Over the last 2 weeks, how often have you been bothered by any of the following problems? 1. Little interest or pleasure in doing things: not at all 2. Feeling down, depressed, or hopeless: not at all 3. Trouble falling or staying asleep, or sleeping too much: not at all 4. Feeling tired or having little energy: not at all 5. Poor appetite or overeating: not at all 6. Feeling bad about yourself - or that you are a failure or have let yourself or your family down: not at all 7. Trouble concentrating on things, such as reading the newspaper or watching television: not at all 8. Moving or speaking so slowly that other people could have noticed. Or the opposite - being so fidgety or restless that you have been moving around a lot more than usual: not at all 9. Thoughts that you would be better off or of hurting yourself in some way: not at all Total score: 0 Depression Screening Interpretation: Negative Depression Screening Done: Yes Source: Developed by Drs. Dion Pradhan, Marquita Reyes, Wali Rae and colleagues, with an educational remberto from [employer]. Thrive Questionnaire Date Thrive assessed: 03/08/25 I am a: Patient Within the past 12 months, did the food you bought not last and you didn't have the money to get more?: Never true Within the past 12 months, did you worry whether your food would run out before you got money to buy more?: Never true Do you have trouble paying for medicines?: No Do you have trouble getting transportation to medical appointments?: No Do you have trouble paying your heating and electricity bill?: No Do you have trouble taking care of your child, family member or friend?: No Do you have trouble with day-to-day activities such as bathing, preparing meals, shopping, managing finances, etc.?: No Are you currently unemployed and looking for a job?: No Are you interested in more education?: No THRIVE Score: 0 AUDIT C Alcohol Use Questionnaire (AUDIT-C) 1. How often do you have a drink containing alcohol?: Never 3. How often do you have six or more drinks on one occasion?: Never Total Score: 0 ISIDRO-7 AMB Questionnaire ISIDRO-7 Date ISIDRO - 7 assessed: 03/08/25 Feeling nervous, anxious, or on edge: 1 = Several days Not being able to stop or control worryin = Not at all Worrying too much about different things: 0 = Not at all Trouble relaxin = Not at all Being so restless that it is hard to sit still: 0 = Not at all Becoming easily annoyed or irritable: 0 = Not at all Feeling afraid as if something awful might happen: 0 = Not at all Total ISIDRO-7 score (0-4 normal; 5-9 mild; 10-14 moderate; 15-21 severe): 1 Source: Developed by Drs. Dion Pradhan, Marquita Reyes, Wali Rae and colleagues, with an educational remberto from [employer]. Physical exam (Primary Care) Vital Signs: Last Vital Signs Temp 97.9 F 03/08/25 11:28 Pulse 87 03/08/25 11:28 BP 122/76 03/08/25 11:28 Pulse Ox 99 03/08/25 11:28 Oxygen Delivery Method Room Air 03/08/25 11:28 BMI result Body Mass Index 23.4 Tobacco/Smoking Status: Tobacco use Status Tobacco use date assessed 03/08/25 03/08/25 11:40 Patient Tobacco Use Status Former Tobacco user 03/08/25 11:40 e-Cigarette/Vaping Use Former Use 03/08/25 11:40 PHQ-9: PHQ-9 Score PHQ-9: Total score 0 03/08/25 12:01 Depression Screening Interpretation: Negative Thrive Assessment: Date of Thrive Assessment Date Thrive assessed 03/08/25 03/08/25 11:40 Coding Level of Care Code Est Pt Level 5 (98213) Diagnoses Fracture of femoral neck, left S72.002A Alzheimer's dementia G30.9; F02.80 Pulmonary embolism I26.99 Weight loss R63.4 Graves disease E05.00 Time Spent (min) 50 Assessment & Plan Assessment & Plan (1) Fracture of femoral neck, left: Code(s): S72.002A - Fracture of unspecified part of neck of left femur, initial encounter for closed fracture Category: Medical Plan: s/p ORIF. Continue working with PT and ambulate with walker. Follow up with ortho as scheduled (2) Alzheimer's dementia: Code(s): G30.9 - Alzheimer's disease, unspecified; F02.80 - Dementia in other diseases classified elsewhere, unspecified severity, without behavioral disturbance, psychotic disturbance, mood disturbance, and anxiety Category: Medical Plan: Reviewed neurology note, brain MRI, and PET. Continue following as scheduled. Continue memantine and escitalopram (3) Pulmonary embolism: Code(s): I26.99 - Other pulmonary embolism without acute cor pulmonale Category: Medical Plan: WATKINS. Hemodynamically stable. DDimer significantly elevated at 3100. CTA chest showing bilateral embolim, no evidence of R heart strain. Trop undetectable. sPESI score 0. Eliquis 10mg BID x 7 days then 5mg BID. Suspect provoked following surgery, but has only been a little over 3 weeks since procedure and was on full prophylaxis. Referred to hematology. Advised to discontinue aspirin and contact ortho as well (4) Weight loss: Code(s): R63.4 - Abnormal weight loss Category: Medical Plan: Ongoing since fracture. Encouraged multiple meals per day and supplement with Ensure. Will follow up in 1-2 months for weight check. Monitor at home. (5) Graves disease: Code(s): E05.00 - Thyrotoxicosis with diffuse goiter without thyrotoxic crisis or storm Category: Medical Plan: Continue levothyroxine Plan Follow up for weight check. Labs as ordered Orders: Orders Basic Metabolic Panel 03/08/25 E46 - Unspecified protein-calorie malnutrition, R63.4 - Abnormal weight loss IRON PROFILE 03/08/25 E46 - Unspecified protein-calorie malnutrition, R63.4 - Abnormal weight loss Vitamin B12 and Folate 03/08/25 E46 - Unspecified protein-calorie malnutrition, R63.4 - Abnormal weight loss Complete Blood Count Auto Diff 03/08/25 E46 - Unspecified protein-calorie malnutrition, R63.4 - Abnormal weight loss Liver Panel 03/08/25 E46 - Unspecified protein-calorie malnutrition, R63.4 - Abnormal weight loss TSH reflex Free T4 03/08/25 E46 - Unspecified protein-calorie malnutrition, R63.4 - Abnormal weight loss D Dimer High Sensitivity 03/08/25 R06.00 - Dyspnea, unspecified XR chest 2V 03/08/25 R06.00 - Dyspnea, unspecified Referrals Hematology & Oncology Referral I26.99 - Other pulmonary embolism without acute cor pulmonale Medications: New food supplemt, lactose-reduced (Ensure Original) Consume one drink orally daily.; 5,688 mL 2RF apixaban (Eliquis DVT-PE Treat 30D Start) PO PER PKG DIR 74 ea 0RF apixaban (Eliquis) 5 mg PO BID 180 tabs 0RF
--- OUTSIDE RECORDS SUMMARY | 2025-03-08 13:46 | XMS_ITS | Encounter Summary ---
Author Organization [facility] Address [address] [place] [phone] Phone Care Team Providers Care Sales Lead Generator Name Role Phone Anne Sanchez Primary Care Provider [phone] Reason for Visit * Reason Onset Date Comments DVT prophylaxis 03/06/2025 Encounter Details Date Type Department Care Team (Late st Contact Info) Description 03/06/2025 Telephone [facility] Orthopedics & Sports Medicine [address] [place] [address] [phone] Oneyda Hwang, RN [address] [place] [address] [phone] [email or web address] DVT prophylaxis Social History Tobacco Use Types Packs/Day Years Used Date Smoking Tobacco: Never Smokeless Tobacco: Never Alcohol Use Standard Drinks/Week Comments Not Currently 0 (1 standard drink = 0.6 oz pur e alcohol) Education Answer Date Recorded Are you interested in more education? Not on susie e 02/21/2025 Are you concerned about learning? Not on file 02/21/2025 No 02/21/2025 No 02/21/2025 Digital Access Answer Date Recorded No 02/21/2025 No 02/21/2025 Reliable internet access at home? Not on file 02/21/2025 Device with a working camera? Not on file Intimate Partner Violence Answer Date R ecorded Are you denied basic needs s uch as food, clothing, or medical care? No 02/21/2025 In the past 12 months have y ou been in a relationship with a person who hurts, threatens, or tries to control you? No 02/21/2025 Are you denied basic needs s uch as food, clothing, or medical care? No 02/21/2025 In the past 12 months have y ou been in a relationship with a person who hurts, threatens, or tries to control you? No 02/21/2025 Comments Unknown Sex and Gender Information Value Date Recorded Sex Assigned at Female 02/21/2025 12:48 AM EST Legal Sex Female 6:13 PM EST Gender Identity Female 02/21/2025 12:48 AM EST Sexual Orientation Straight 02/21/2025 12 :48 AM EST documented as of this encounter Progress Notes * Oneyda Hwang RN - 03/07/2025 8:[address] Le, pt okay to take aspirin 81mg BID. Oliva made aware. * Oneyda Hwang RN - 03/06/2025 11:08 AM EST Pt had left unipolar hip arthroplasty on 02/22/[address] Le following a hip fracture. Pt discharged from inpatient rehab and is now home with [facility] providing services. Oliva with [facility] called requesting clarification on DVT prophylaxis. Pt had been discharged from the hospital on lovenox. Paperwork from rehab had both lovenox and aspirin listed. documented in this encounter Plan of Treatment Upcoming Encounters Date Type Department Care Team (Late st Contact Info) Description 03/09/2025 11:00 AM EST Office Visit [facility] Orthopedics & Sports Medicine [address] [place] [phone] Naty Moon PA-C [address] [place] [address] Orthopedics & Sports Medicine, [facility] [place] [address] 04/13/2025 1:30 PM EST Office Visit [facility] Orthopedics & Sports Medicine [address] [place] [phone] Rasheed Le MD [address] [place] [address] Orthopedics & Sports Medicine, [facility] [place] [address] [email or web address] documented as of this encounter Goals Goal Patient Goal Type Associated Problems Recent Progress Patient-Stated? Author Autogenerat ed Goal Care Plan Autogenerated Problem No Zee Lozano, RN documented as of this encounter Visit Diagnoses Not on filedocumented in this encounter Additional Health Concerns Active Problems Noted Date Diagnosed Date Autogenerated Problem 02/21/2025 documented as of this encounter Care Teams Sales Lead Generator Relationship Specialty Start Date End Date Anne Sanchez PA [address] [place] [address] [address] [place] [address] [email or web address] PCP - General Physician Medical Office Professional Instructor 02/20/25 documented as of this encounter Additional Source Comments The information contained in this document represents components of the legal health record. It is not the complete legal health record.[facility]
--- OUTSIDE RECORDS SUMMARY | 2025-03-08 13:46 | XMS_ITS | Clinical Summary ---
Author Organization [facility] Address [address] [place] [phone] Phone Care Team Providers Care [employer] Name Role Phone Anne Sanchez Primary Care Provider [phone] Allergies Active Allergy Reactions Criticality Noted Date Comments Rofecoxib Itching 02/21/2025 Medications memantine (NAMENDA XR) 28 mg 24 hr sprinkle capsule Take 28 mg by mouth daily. 5 Active levothyroxine (SYNTHROID, LEVOTHROID) 100 MCG tablet Take 100 mcg by mouth every morning. Active acetaminophen (TYLENOL) 325 mg tablet Take 3 tablets (975 mg total) by mouth 3 (three) times a day as needed for pain (specific location in comments). 5 Active enoxaparin (LOVENOX) 40 mg/0.4 mL Syrg subcutaneous syringe Inject 0.4 mL (40 mg total) under the skin daily for 27 doses. 5 03/23/20 25 Active clotrimazole (LOTRIMIN) 1 % cream Apply topically 2 (two) times a day for 14 doses. 30 g 5 03/02/20 25 oxyCODONE 5 MG immediate release tablet Take 0.5 tablets (2.5 mg total) by mouth every 4 (four) hours as needed for pain (specific location in comments). Partial fill ok 10 tablet 5 02/27/20 25 polyethylene glycol (MIRALAX) 17 gram packet Take 17 g by mouth daily for 3 days. 5 02/28/20 25 Active Problems Problem Noted Date Diagnosed Date Intertrigo 02/23/2025 Assessment & Plan (02/23/2025 10:04 AM EST): At the intergluteal cleft there is a small patch of intertrigo, no cellulitic findings. No purulence. Not itchy currently. - Clotrimazole twice daily x 7 days Mild cognitive impairment 02/22/2025 Assessment & Plan (02/23/2025 10:04 AM EST): History of mild dementia. She is able to name [place], [place] as location. Not always aware of season or month. Aware of year. Pleasant and cooperative. Mild delirium in setting of hospitalization, medications. No signs of underlying infection. - Maintains capacity -Delirium precautions Assessment & Plan (02/22/2025 9:09 AM EST): History of mild dementia. This morning she is unable to name the hospital, town. She knows she is in [place]. She was able to name the year though thought it was spring time. She is aware of situation. Pleasant and cooperative. Mild delirium in setting of hospitalization, medications. No signs of underlying infection. - Maintains capacity -Delirium precautions Femoral neck fracture 02/21/2025 Assessment & Plan (02/23/2025 10:04 AM EST): Patient presented with mechanical fall resulting in a left femoral neck fracture confirmed on imaging. No prodromal symptoms. No signs or symptoms of infectious etiology. No prior history of cardiopulmonary disease. Patient's independent, METS greater than 4. Patient is low risk for perioperative complications. Postop day 1 from left hip hemiarthroplasty. Pain well-controlled, moving bowels and tolerating diet. Poorly following hip precautions, needing frequent reminders. PT/OT recommending rehab, patient agreeable. Slight drop in hemoglobin though no signs of active bleeding, vital stable. Reminded patient on posterior hip precautions. -Pain management with Tylenol, ice, low-dose oxycodone Prophylactic bowel regimen provided; moving bowels, reducing to just MiraLAX daily for now -PT/OT consult; recommending rehab, patient agreeable -Orthopedic consultation appreciated -Posterior hip precautions - Lovenox x 28 days for DVT prophylaxis -Follow-up Ortho in 2 weeks Assessment & Plan (02/22/2025 9:09 AM EST): Patient presented with mechanical fall resulting in a left femoral neck fracture confirmed on imaging. No prodromal symptoms. No signs or symptoms of infectious etiology. No prior history of cardiopulmonary disease. Patient's independent, METS greater than 4. Patient is low risk for perioperative complications. Pain well-controlled. Surgery planned for today with Dr. Le. -Bedrest - n.p.o. after midnight -Pain management with Tylenol, ice, oxycodone, morphine Prophylactic bowel regimen provided -IV Zofran as needed for nausea -Decolonization ordered -Neurovascular checks every 4 hours -PT/OT consult following surgery -Orthopedic consultation appreciated - DVT prophylaxis postop per surgery Assessment & Plan (02/21/2025 10:07 AM EST): Patient presented with mechanical fall resulting in a left femoral neck fracture confirmed on imaging. No prodromal symptoms. No signs or symptoms of infectious etiology. No prior history of cardiopulmonary disease. Patient's independent, METS greater than 4. Patient is low risk for perioperative complications. Surgery planned for tomorrow morning. Will provide diet, 1 dose of Lovenox today. -Bedrest -Diet provided; n.p.o. after midnight -Pain management with Tylenol, ice, oxycodone, morphine Prophylactic bowel regimen provided -IV Zofran as needed for nausea -Decolonization ordered -Neurovascular checks every 4 hours -PT/OT consult following surgery -Orthopedic consultation appreciated -Lovenox x 1 for DVT prophylaxis today; defer postop prophylaxis to surgery Assessment & Plan (02/21/2025 5:53 AM EST): Patient presented with mechanical fall resulting in a left femoral neck fracture confirmed on imaging. No prodromal symptoms. No signs or symptoms of infectious etiology. No prior history of cardiopulmonary disease. Patient's independent, METS greater than 4. Patient is low risk for perioperative complications. - Admit to MedSurg -No indication to repeat labs today -Bedrest -N.p.o. except medications -Gentle IV fluids -IV morphine as needed for severe pain -IV Zofran as needed for nausea -Decolonization ordered -Neurovascular checks every 4 hours -PT/OT consult -Orthopedic consultation Disorder of thyroid Assessment & Plan (02/23/2025 10:04 AM EST): -Continue levothyroxine Assessment & Plan (02/22/2025 9:09 AM EST): -Continue levothyroxine Assessment & Plan (02/21/2025 10:07 AM EST): Continue levothyroxine Assessment & Plan (02/21/2025 5:53 AM EST): Continue levothyroxine Encounters Date Type Department Care Team Description 03/06/2025 Telephone [facility] [address] [place] [phone] Oneyda Hwang RN DVT prophylaxis 02/22/2025 11:14 AM EST Anesthesia Event OR Admitting Dept - Virtual Department [address] [place] [phone] Rika Alva MD 02/22/2025 10:28 AM EST - 02/22/2025 1:17 PM EST Surgery OR Admitting Dept - Virtual Department [address] [place] [address] Rasheed Le MD ARTHROPLASTY UNIPOLAR HIP 02/22/2025 Procedure Pass OR Admitting Dept - Virtual Department [address] [place] [phone] 02/21/2025 12:18 AM EST - 02/23/2025 2:42 PM EST Hospital Encounter [facility] Joint [address] [address] Bradley Andrade MD Miskovsky, Glenn E, MD Grachev, Maksim, DO Discharge Disposition: Rehab Facility from Last 3 Months Social History Tobacco Use Types Packs/Day Years Used Date Smoking Tobacco: Never Smokeless Tobacco: Never Tobacco Cessation:Counseling Given: Not Answered Alcohol Use Standard Drinks/Week Comments Not Currently [...] Orientation Straight 02/21/2025 12 :48 AM EST Last Filed Vital Signs Vital Sign Reading Time Taken Comments Blood Pressure 107/61 02/23/2025 1:36 PM EST Pulse 84 02/23/2025 9:02 AM EST Temperature 37.4 C (99.3 F) 02/23/2025 7:48 AM EST Respiratory Rate 12 02/23/2025 7:48 AM EST Oxygen Saturation 98% 02/23/2025 1:36 PM EST Inhaled Oxygen Concentration - - Weight 59 kg (130 lb) 02/21/2025 4:09 AM EST Height 165.1 cm (5' 5 ) 02/21/2025 4:09 AM EST Body Mass Index 21.63 02/21/2025 4:09 AM EST Plan of Treatment Upcoming Encounters Date Type Department Care Team (Late st Contact Info) Description 03/09/2025 11:00 AM EST Office Visit [facility] [address] [place] [phone] Naty Moon PA-C [address] [place] [address] Orthopedics Sports [facility], [place] [address] [email or web address] 04/13/2025 1:30 PM EST Office Visit [facility] Medicine [address] [place] [phone] Rasheed Le MD [address] [place] [address] Orthopedics Sports [facility], [place], [place] [phone] [email or web address] Health Maintenance Due Date Last Done Comments Adult Td,Tdap Booster 1945 LIPID PANEL 1947 TSH LEVEL 1947 DEPRESSION SCREENING 1959 HEPATITIS C SCREENING 1965 PNEUMOCOCCAL VACCINES (50+ y ears) (1 of 1 - PCV) 1997 ZOSTER VACCINES (1 of 2) 1997 OSTEOPOROSIS SCREENING INITI AL (ONE-TIME) 2012 RSV VACCINE (1 - 1-dose 75+ series) 2022 INFLUENZA VACCINE (#1) 2024 COVID-19 VACCINE ( - 2024-2 6 season) 2024 SMOKING STATUS SCREENING (On ce After 26 Yrs) Completed 02/21/2025 HEPATITIS A VACCINES Aged Out No long er eligible based on patient's age to complete this topic HIB VACCINES Aged Out No longer eligi ble based on patient's age to complete this topic MENINGOCOCCAL VACCINES (ACWY) Aged Out No longer eligible based on patient's age to complete this topic MENINGOCOCCAL VACCINES (B) Aged Out N o longer eligible based on patient's age to complete this topic Goals Goal Patient Goal Type Associated Problems Recent Progress Patient-Stated? Author Autogenerat ed Goal Care Plan Autogenerated Problem No Zee Lozaon, RN Medical Devices Implanted Type Area Financial Services Director Device Identifier Shelf Expiration Date Model / Serial / Lot Hip Stem 9.0mm Femoral Echo Fx [place] [employer] - [id number] Implanted:Qty: 1 on 02/22/2025 by Rasheed Le MD at [facility] Left: Femur [employer] [id number] 06/16/2033 [id number] / / [id number] Hip Centralizer 11mm Implant Cemented Versys 16b Bx/1ea - [id number] Implanted:Qty: 1 on 02/22/2025 by Rasheed Le MD at [facility] Left: Femur [employer]ARYL [employer] [id number] 12/14/2029 [id number] / / [id number] Cement Bone 1x40 Standard - [id number] Implanted:Qty: 1 on 02/22/2025 by Rasheed Le MD at [facility] Left: Femur [employer] [id number] 06/04/2027 [id number] / / [id number] Cement Bone 1x40 Standard - [id number] Implanted:Qty: 1 on 02/22/2025 by Rasheed Le MD at [facility] Left: Femur [employer] [id number] 06/04/2027 [id number] / / [id number] Kit Preparation Cement Femoral Bone Quick Use Bx/1ea - [id number] Implanted:Qty: 1 on 02/22/2025 by Rasheed Le MD at [facility] Left: Femur [employer] 11/03/2026 [id number] / / [id number] Hip Stem 9.0mm Femoral Echo Fx [place] [employer]ium - [id number] Implanted:Qty: 1 on 02/22/2025 by Rasheed Le MD at [facility] Left: Femur [employer] [id number] 06/16/2033 [id number] / / [id number] Hip Insert Femoral Bio Bentley Ii Endo Titanium Alloy Taper Standard - [id number] Implanted:Qty: 1 on 02/22/2025 by Rasheed Le MD at [facility] Left: Femur [employer] [id number] 10/28/2034 [id number] / / [id number] Femoral Head 44mm Shell Endo Ii Titanium Alloy Unipolar - [id number] Implanted:Qty: 1 on 02/22/2025 by Rasheed Le MD at [facility] Left: Femur [employer] [id number] 06/07/2033 [id number] / / [id number] Procedures Procedure Name Priority Date/Time Associated Diagnosis Comments BASIC METABOLIC PANEL (BMP) Routine 02/23/2025 6:16 AM EST CBC Routine 02/23/2025 6:16 AM EST XR PELVIS 1-2 VIEW Routine 02/22/2025 4: 51 PM EST TISSUE EXAM Routine 02/22/2025 1:13 PM EST ANES SPINAL Routine 02/22/2025 11:22 AM EST ARTHROPLASTY UNIPOLAR HIP 02/22/2025 11:14 AM EST fractured hip left CBC AND DIFFERENTIAL Routine 02/22/2025 6:14 AM EST BASIC METABOLIC PANEL (BMP) Routine 02/22/2025 6:14 AM EST CBC AND DIFFERENTIAL Routine 02/22/2025 6:14 AM EST MRSA/MSSA PRE-OP PCR Routine 02/21/2025 5:58 AM EST MRSA NASAL SCREEN STAT 02/21/2025 4:0 6 AM EST XR CHEST 1 VIEW Routine 02/21/2025 2:11 AM EST ECG 12-LEAD STAT 02/21/2025 1:53 AM EST CBC AND DIFFERENTIAL STAT 02/21/2025 1:47 AM EST BLOOD BANK HOLD SPECIMEN STAT 02/21/2025 1:47 AM EST BASIC METABOLIC PANEL (BMP) STAT 02/21/2025 1:47 AM EST CBC AND DIFFERENTIAL STAT 02/21/2025 1:47 AM EST XR HIP 2-3 VW LEFT Routine 02/21/2025 1: 08 AM EST from Last 3 Months Results * (ABNORMAL) CBC (02/23/2025 6:16 AM EST) WBC 12.18(H) 4.00 - 11.00 K/uL 02/23/2025 6:45 AM [facility] RBC 3.46(L) 4.00 - 5.20 M/uL 02/23/2025 6:45 AM [facility] Hemoglobin 10.9(L) 12.0 - 16.0 g/dL 02/23/2025 6:45 AM [facility] Hematocrit 32.7(L) 36.0 - 46.0 % 02/23/2025 6:45 AM [facility] MCV 94.5 80.0 - 100.0 fL 02/23/2025 6:45 AM [facility] MCH 31.5(H) 27.0 - 31.0 pg 02/23/2025 6:45 AM [facility] MCHC 33.3 32.0 - 36.0 g/dL 02/23/2025 6:45 AM [facility] PLT 251 150 - 450 K/uL 02/23/2025 6:45 AM [facility] MPV 9.4 8.4 - 12.0 fL 02/23/2025 6:45 AM [facility] RDW-CV 13.1 11.5 - 14.5 % 02/23/2025 6:45 AM [facility] Absolute NRBC 0.00 <=0.00 K cells/uL 02/23/2025 6:45 AM [facility] NRBC 0.0 <=0.0 /100 WBCs 02/23/2025 6:45 AM [facility] Blood (Blood) Venipuncture / Unknown 02/23/2025 6:16 AM EST 02/23/2025 6:24 AM EST us Keanu Mendoza PA-C LAB BLOOD BKR ORDERABLE S Final Result [address] [address] * (ABNORMAL) Basic Metabolic Panel (BMP) (02/23/2025 6:16 AM EST) Only the most recent of3 resultswithin the time period is included. Sodium 140 136 - 145 mmol/L 02/23/2025 7:15 AM [facility] Potassium 4.0 3.4 - 5.1 mmol/L 02/23/2025 7:15 AM [facility] Chloride 108(H) 98 - 107 mmol/L 02/23/2025 7:15 AM [facility] CO2 22 20 - 31 mmol/L 02/23/2025 7:15 AM [facility] Anion Gap 10 3 - 17 mmol/L 02/23/2025 7:15 AM [facility] BUN 9 6 - 23 mg/dL 02/23/2025 7:15 AM [facility] Creatinine 0.70 0.50 - 1.00 mg/dL 02/23/2025 7:15 AM [facility] eGFR 89 >59 mL/min/1.7 3m2 02/23/2025 7:15 AM [facility] Comment:Estimated glomerular filtration rate calculated using the CKD-EPI refit equation. Glucose 122(H) 70 - 99 mg/dL 02/23/2025 7:15 AM [facility] Calcium 9.2 8.5 - 10.5 mg/dL 02/23/2025 7:15 AM [facility] Blood (Blood) Venipuncture / Unknown 02/23/2025 6:16 AM EST 02/23/2025 6:24 AM EST us Keanu Mendoza PA-C LAB BLOOD BKR ORDERABLE S Final Result [address] [address] * XR PELVIS 1-2 VIEW (02/22/2025 4:51 PM EST) Anatomical Region Laterality Modality Pelvis Computed Radiogr aphy 02/22/2025 5:03 PM EST Impressions 02/22/2025 5:06 PM EST Expected postoperative changes status post left hip hemiarthroplasty. Narrative 02/22/2025 5:06 PM EST XR PELVIS 1-2 VIEW Referring clinician's provided indication for this examination in [facility]: S/P Joint Replacement additional clinical information: Recent presentation with left high femoral neck fracture. COMPARISON: Pre-op left hip x-rays 02/21/2025. FINDINGS: Postoperative changes evident status post left hip gasper-arthroplasty. Femoral component is seated within the proximal femur with surrounding cement. Anatomic alignment. Expected soft tissue gas and altered density about the hip. No evidence of inadvertent fracture related to the procedure. Procedure Note Keith Chisholm MD - 02/22/2025 XR PELVIS 1-2 VIEW Referring clinician's provided indication for this examination in [facility]:S/P Joint Replacement additional clinical information: Recent presentationwith left high femoral neck fracture. COMPARISON: Pre-op left hip x-rays 02/21/2025. FINDINGS: Postoperative changes evident status post left hip gasper-arthroplasty.Femoral component is seated within the proximal femur with surroundingcement. Anatomic alignment. Expected soft tissue gas and altered densityabout the hip. No evidence of inadvertent fracture related to theprocedure. IMPRESSION: Expected postoperative changes status post left hip hemiarthroplasty. us Jesus Alberto Miranda PA-C IMG XR PELVIS Final Resul t * Tissue Exam (02/22/2025 1:13 PM EST) Final Pathologic Diagnosis HIP, LEFT; BONE - ARTHROPLASTY: Osteopenia and bone marrow hemorrhage consistent with fracture site. 02/24/2025 1:07 PM EST [facility] at 1307 EST Clinical History Pre-op diagnosis: fractured hip left 02/24/2025 1:07 PM [facility] Gross Description A. HIP, LEFT; BONE - LEFT HIP: Received in formalin is a 4.1 x 4.1 x 3.6 cm femoral head with no femoral neck received. The articular surface is smooth to focally nodular, christianson to pink-white. The femoral neck region is jagged, irregular and hemorrhagic. Sectioning reveals a hard, trabecular, focally hemorrhagic and christianson-yellow cut surface. A u.s. representative section is submitted in a single cassette following decalcification. 02/24/2025 1:07 PM [facility] Grossed By Dudley Fitzpatrick 02/24/2025 1:07 PM [facility] Result Priority Level Routine 02/24/2025 1:07 PM [facility] Disclaimer By their signature above, the pathologist listed as making the Final Diagnosis certifies that they have personally reviewed the case and confirmed the diagnosis. All slides and stains were of sufficient quality to establish the diagnosis, unless otherwise stated. Due to loss of elastic tension and/or tissue shrinkage in formalin, the clinical sizes of tissue specimens may be larger than those provided in this report. 02/24/2025 1:07 PM [facility] Procedure ARTHROPLASTY UNIPOLAR HIP 02/24/2025 1:07 PM [facility] Musculoskeletal Tissue (Hip, Left) 02/22/2025 1:13 PM EST 02/22/2025 2:50 PM EST Comment:Pre-op diagnosis: fractured hip left us Rasheed Le MD LAB PATHOLOGY ORDERABLES Mari l Result [facility] [address] [place] [address] * Spinal (02/22/2025 11:22 AM EST) Narrative Rika Thakur MD - 02/22/2025 11:22 AM EST Rika Thakur MD 02/22/2025 12:00 PM Spinal Placement Procedure Note: Start time: 02/22/2025 11:22 AM Performed by: anesthesiologist Anesthesiologist: Rika Thakur MD Flora Protocol performed: consent obtained, patient identified with 2 identifiers, correct procedure verified, correct site and laterality confirmed, verified equipment, coagulation status reviewed and implant history reviewed. Procedure details: Patient position: left lateral decubitus Prep: chloraprep Approach: midline Location: L3-4 Needle: Needle type: Pencan Needle gauge: 25 Needle length: standard CSF was aspirated Outcome: Sensory level: T4 Blood aspirated? no Paresthesia: no Rika Thakur MD IN ANESTHESIA Edited Result - Final * (ABNORMAL) CBC and Differential (02/22/2025 6:14 AM EST) Only the most recent of2 resultswithin the time period is included. WBC 6.67 4.00 - 11.00 K/uL 02/22/2025 6:34 AM [facility] RBC 4.11 4.00 - 5.20 M/uL 02/22/2025 6:34 AM [facility] Hemoglobin 12.8 12.0 - 16.0 g/dL 02/22/2025 6:34 AM [facility] Hematocrit 39.0 36.0 - 46.0 % 02/22/2025 6:34 AM [facility] MCV 94.9 80.0 - 100.0 fL 02/22/2025 6:34 AM [facility] MCH 31.1(H) 27.0 - 31.0 pg 02/22/2025 6:34 AM [facility] MCHC 32.8 32.0 - 36.0 g/dL 02/22/2025 6:34 AM [facility] MPV 9.1 8.4 - 12.0 fL 02/22/2025 6:34 AM [facility] RDW-CV 13.2 11.5 - 14.5 % 02/22/2025 6:34 AM [facility] PLT 260 150 - 450 K/uL 02/22/2025 6:34 AM [facility] Neutrophils 46.4 % 02/22/2025 6:34 AM [facility] Lymphocytes 36.9 % 02/22/2025 6:34 AM [facility] Monocytes 11.5 % 02/22/2025 6:34 AM [facility] Eosinophils 4.3 % 02/22/2025 6:34 AM [facility] Basophils 0.6 % 02/22/2025 6:34 AM [facility] Imm Grans 0.3 % 02/22/2025 6:34 AM [facility] NRBC 0.0 <=0.0 /100 WBCs 02/22/2025 6:34 AM [facility] Absolute Neutrophils 3.09 1.92 - 7.60 K/uL 02/22/2025 6:34 AM [facility] Absolute Lymphocytes 2.46 0.72 - 4.10 K/uL 02/22/2025 6:34 AM [facility] Absolute Monocytes 0.77 0.16 - 1.10 K/uL 02/22/2025 6:34 AM [facility] Absolute Eosinophils 0.29 0.00 - 0.50 K/uL 02/22/2025 6:34 AM [facility] Absolute Basophils 0.04 0.00 - 0.15 K/uL 02/22/2025 6:34 AM [facility] Absolute Imm Grans 0.02 0.00 - 0.09 K/uL 02/22/2025 6:34 AM [facility] Absolute NRBC 0.00 <=0.00 K cells/uL 02/22/2025 6:34 AM [facility] Absolute Neutrophils 3.09 1.92 - 7.60 K/uL 02/22/2025 6:34 AM [facility] Comment:Automated cell count . Manual ANC may differ if performed. Diff Type Auto 02/22/2025 6:34 AM [facility] Blood (Blood) Venipuncture / Unknown 02/22/2025 6:14 AM EST 02/22/2025 6:17 AM EST us Bradley Andrade MD LAB BLOOD BKR ORDERABLES Final Result [facility] [address] [place] [address] * MRSA/SA PRE-OPERATIVE SCREEN, PCR (02/21/2025 5:58 AM EST) Pathologist [facility] MRSA PCR Screen Negative for MRSA Negative for MRSA 02/21/2025 7:31 AM EST [facility] SA PCR Screen Negative for SA Negative for SA 02/21/2025 7:31 AM EST [facility] Swab (Anterior Nares) Non-Blood Collection / Unknown 02/21/2025 5:58 AM EST 02/21/2025 6:13 AM EST Narrative [facility] - 02/21/2025 7:31 AM EST This test was conducted as part of Pre-Operative Screening for Staphylococcus aureus. Please direct any questions regarding this result to the Ordering Provider. us Bradley Andrade MD LAB GENERAL ORDERABLES Final Re sult Performing Organization Address City/[facility]/ZIP Co de Phone Number [address] [address] * MRSA Screen, Culture (02/21/2025 4:06 AM EST) [facility] Methicillin Resistant Staphylococcus Aureus (MRSA) Screen Culture/Test No MRSA isolated 02/23/2025 10:48 AM EST [facility] Swab (Anterior Nares) Non-Blood Collection / Unknown 02/21/2025 4:06 AM EST 02/21/2025 4:10 AM EST us Shreya Rivera PA-C LAB MICROBIOLOGY CULTURE OR DERABLES Final Result Performing Organization Address City/[facility]/ZIP Co de Phone Number [address] [address] * XR CHEST 1 VIEW (02/21/2025 2:11 AM EST) Anatomical Region Laterality Modality Chest Computed Radiogr aphy 02/21/2025 7:37 AM EST Impressions 02/21/2025 7:38 AM EST No acute abnormality. Narrative 02/21/2025 7:38 AM EST XR CHEST 1 VIEW Referring clinician's provided indication for this examination in Epic: S/P Fall COMPARISON: None FINDINGS: Devices/Tubes/Lines: None. Lungs: No focal consolidation or pulmonary edema. Pleura: No pleural effusion or pneumothorax. Heart/Mediastinum: Normal heart and mediastinum. Bones/Soft Tissues: No significant abnormality. Procedure Note Neelam Yuen MD - 02/21/2025 XR CHEST 1 VIEW Referring clinician's provided indication for this examination in Epic:S/P Fall COMPARISON: None FINDINGS: Devices/Tubes/Lines: None. Lungs: No focal consolidation or pulmonary edema. Pleura: No pleural effusion or pneumothorax. Heart/Mediastinum: Normal heart and mediastinum. Bones/Soft Tissues: No significant abnormality. IMPRESSION: No acute abnormality. Shreya Rivera PA-C IMG XR CHEST Final Resul t * ECG 12-LEAD (02/21/2025 1:53 AM EST) Ventricular Rate EKG/MIN 79 BPM [facility] Atrial Rate 79 BPM [facility] IN Interval 146 ms [facility] QRS Duration 106 ms [facility] QT Interval 404 ms [facility] QTC Interval 463 ms [facility] P [place] 61 degrees [facility] R Wave [place] -44 degrees [facility] T Wave [place] 61 degrees [facility] 02/21/2025 1:53 AM EST 02/21/2025 2:05 PM EST Narrative [facility] - 02/21/2025 2:05 PM EST Normal sinus rhythm Left axis deviation Low voltage QRS Incomplete right bundle branch block Abnormal ECG No previous ECGs available Confirmed by Luis Toledo ([id number]) on 02/21/2025 2:05:00 PM us Shreya Rivera PA-C ECG ORDERABLES Final Resul t [facility] * Blood Bank Hold Specimen (02/21/2025 1:47 AM EST) Sample Expires 02/24/2025 ,2359 02/21/2025 1:57 AM EST [facility] Blood (Blood) Venipuncture / Unknown 02/21/2025 1:47 AM EST 02/21/2025 1:54 AM EST us Shreya Rivera PA-C LAB BLOOD BANK TEST ORDERAB LES Final Result [facility], [address] [place] [id number] [address] * XR HIP 2-3 VW LEFT (02/21/2025 1:08 AM EST) Anatomical Region Laterality Modality Hip Left Computed Radiogr aphy 02/21/2025 7:26 AM EST Impressions 02/21/2025 7:28 AM EST Mildly displaced subcapital left femoral neck fracture, with slight valgus and apex anterior angulation. The intact femoral head remains normally located with the intact acetabulum. Narrative 02/21/2025 7:28 AM EST XR HIP 2-3 VW LEFT Referring clinician's provided indication for this examination in [facility]: Pain; S/P Fall Procedure Note Efrain Roberts MD, PhD - 02/21/2025 XR HIP 2-3 VW LEFT Referring clinician's provided indication for this examination in [facility]:Pain; S/P Fall IMPRESSION: Mildly displaced subcapital left femoral neck fracture, with slight valgusand apex anterior angulation. The intact femoral head remains normallylocated with the intact acetabulum. Nuno Orozco MD IMG XR PELVIS F inal Result from Last 3 Months Additional Health Concerns Active Problems Noted Date Diagnosed Date Autogenerated Problem 02/21/2025 Insurance [email or web address] MEDEX SUPPLEMENT MEDICARE PART A & B Member Subscriber Plan / Payer (Ef fective 2017-Present) Name:Leatha Martino Member ID:[id number] Relation to Subscriber:Self Name:Leatha Martino Subscriber ID:[id number] Payer ID:[id number] Group ID:Not on file Type:Medicare [facility] [address] [email or web address] MEDEX SUPPLEMENT MEDICARE PART A & B MEDICARE PART A & B MEDICARE PART A & B [email or web address] MEDEX SUPPLEMENT MEDICARE PART A & B [email or web address] MEDEX SUPPLEMENT MEDICARE PART A & B Advance Directives For more information, please contact: [phone] (9AM - 5PM [facility], Thursday-Thursday) Documents on File Type Date Recorded Patient Biomedical Engineering Aide Expl anation Healthcare Proxy 02/24/2025 12:58 PM Healthcare Proxy 02/22/2025 Healthcare Proxy * Full Code (Latest Code Status on File) Date Activated Date Inactivated Comments 02/21/2025 5:20 AM Question Answer Comments Code Status Confirmed With: Patient Code Status Communicated To: Inpatient Attending Healthcare Agents on File Name Relationship Healthcare Agent Relationshi p Communication Mayur Salena Spouse .Primary Health Care Agent (Proxy form on file) Care Teams Middle School Music Teacher Relationship Specialty Start Date End Date Anne Sanchez PA [address] [place] [address] [place] [id number] [email or web address] PCP - General Physician Card Checker 02/20/25 Additional Source Comments The information contained in this document represents components of the legal health record. It is not the complete legal health record.[facility]
--- OUTSIDE RECORDS SUMMARY | 2025-03-08 13:46 | XMS_ITS | Encounter Summary ---
Author Organization [facility] Address [address] [place] [phone] Phone Care Team Providers Care Diet Supervisor Name Role Phone Anne Sanchez Primary Care Provider [phone] Encounter Details Date Type Department Care Team (Late st Contact Info) Description 02/22/2025 Procedure Pass OR Admitting Dept - Virtual Department [address] [place] [address] Social History Tobacco Use Types Packs/Day Years [...] AM EST documented as of this encounter Plan of Treatment Upcoming Encounters Date Type Department Care Team (Late st Contact Info) Description 03/09/2025 11:00 AM EST Office Visit [facility] [address] [place] [phone] Naty Moon PA-C [address] [place] [address] Orthopedics Sports [place], [place] [phone] [email or web address] 04/13/2025 1:30 PM EST Office Visit [facility] [address] [place] [phone] Rasheed Le MD [address] [place] [address] [facility] [place], [place] [phone] [email or web address] documented as of this encounter Goals Goal Patient Goal Type Associated Problems Recent Progress Patient-Stated? Author Autogenerat ed Goal Care Plan Autogenerated Problem No Zee Lozano RN documented as of this encounter Visit Diagnoses Not on filedocumented in this encounter Additional Health Concerns Active Problems Noted Date Diagnosed Date Autogenerated Problem 02/21/2025 documented as of this encounter Care Teams Diet Supervisor Relationship Specialty Start Date End Date Anne Sanchez PA [address] [place] [address] [address] [place] [phone] [email or web address] PCP - General Physician Civil Engineering Intern 02/20/25 documented as of this encounter Additional Source Comments The information contained in this document represents components of the legal health record. It is not the complete legal health record.[facility]
--- OUTSIDE RECORDS SUMMARY | 2025-03-08 13:46 | XMS_ITS | Clinical Summary ---
Author Organization [facility] [place] [address] Care Team Providers Care Supervisor Fireworks Assembly Name Role Phone Anne Sanchez Primary Care Provider [phone] Encounters Date Type Department Care Team Description 02/21/2025 Transcribe Orders eD Incoming Referrals [phone] Bina Arriaga MD Alzheimer's disease with late onset; Dementia in other diseases classified elsewhere, mild, with anxiety from Last 3 Months Social History Tobacco Use Types Packs/Day Years Used Date Smoking Tobacco: Never Assessed Comments Unknown Sex and Gender Information Value Date Recorded Sex Assigned at Not on file Legal Sex Female 9:19 AM EST Gender Identity Not on file Sexual Orientation Not on file Plan of Treatment Upcoming Encounters Date Type Department Care Team (Late st Contact Info) Description 06/08/2025 11:45 AM EST Office Visit Neurology at [address] [phone] Chemo Muhammad MD [address] [place] [address] [place] [address] Health Maintenance Due Date Last Done Comments Hepatitis C Screening 1963 Tetanus/Diphtheria/Pertussis Vaccines (1 - Tdap) 03/04 Pneumoccocal Vaccine: 50+ (1 of 1 - PCV) 1997 Zoster vaccine (1 of 2) 1997 Advance Directive 2002 Bone Density Scan 2012 RSV Vaccine (1 - 1-dose 75+ series) 2022 Covid-19 Vaccine (1 - season) 2024 Influenza (Flu) vaccine (1 o f 1 - Influenza standard series) 12/05/2024 Procedures Procedure Name Priority Date/Time Associated Diagnosis Comments CT SCAN (SCAN) 02/02/2025 12:00 AM EDT from Last 3 Months Results * Scan Doc: CT Scan (02/02/2025 12:00 AM EDT) Anatomical Region Laterality Modality Other Narrative 02/02/2025 12:00 AM EDT Ordered by an unspecified provider. us Scanning Provider MEDIA MGR SCAN EXT ORDR/RSLT F inal Result from Last 3 Months Insurance MEDICARE [facility] Care Teams Supervisor Fireworks Assembly Relationship Specialty Start Date End Date Anne Sanchez PA [address] [place] [phone] PCP - General 02/21/25
== END 2025-03-08 14:44 | disposition home or self-care (01) ==
LOC: HO.HMCHD 11:23
PROVIDERS: PCP Physician Assistant; Visit Provider Physician Assistant
DX: S72.002A Fracture of unspecified part of neck of left femur, initial encounter for closed fracture (principal); G30.9 Alzheimer's disease, unspecified; F02.80 Dementia in other diseases classified elsewhere, unspecified severity, without behavioral disturbance, psychotic disturbance, mood disturbance, and anxiety; I26.99 Other pulmonary embolism without acute cor pulmonale; R63.4 Abnormal weight loss; E05.00 Thyrotoxicosis with diffuse goiter without thyrotoxic crisis or storm

== ENCOUNTER 2025-03-08 11:23 | Outpatient (REF) | payer MEDICARE, SELFPAY ==
--- NOTE | ~2025-03-08 | XR_ITS ---
EXAMINATION: XR CHEST 2 VIEWS HISTORY: R06.00 - Dyspnea, unspecified COMPARISON: Comparison is made with prior examinations dated 10/24/2016 and 06/01/2013. FINDINGS: PA and lateral views of the chest are submitted. The lungs are expanded and clear. There is no pleural effusion, pneumothorax, or pulmonary vascular congestion. The heart is normal in size. The bones are intact. XR/XR chest 2V IMPRESSION: No acute cardiopulmonary abnormality. Electronically signed by: Dion Cunningham MD 03/08/2025 01:26 PM [facility]
--- NOTE | ~2025-03-08 | CT_ITS ---
EXAMINATION: CT ANGIOGRAM CHEST CLINICAL INFORMATION: R06.00 - Dyspnea, unspecified , ORIF Left hip last month COMPARISON: None available. TECHNIQUE: Multiple axial images were obtained through the chest after the administration of 65 mL of Omnipaque 350 intravenous contrast. Extensive vascular post-processing including two-dimensional and three-dimensional reformatted images were created and reviewed on an independent workstation. This CT examination was performed using dose optimization techniques as appropriate, variously including the following: *Automated exposure control *Adjustment of mA and/or kV according to patient size (this includes techniques or standardized protocols for targeted exams where dose is matched to indication/reason for exam; i.e. extremities or head) *Use of iterative reconstruction technique FINDINGS: QUALITY OF STUDY/CONTRAST BOLUS: Adequate PULMONARY ARTERIES: There appears to be a filling defect in pulmonary artery branch in the anterior-inferior medial right upper lobe. CT #17 image 66. There is also likely a small filling defect in a medial right middle lobe segment. There is a filling defect in a proximal branch point leading to the left lower lobe. THORACIC AORTA: Multifocal vascular calcifications are present. LUNGS AND PLEURA: Lungs are clear. There is no pleural effusion or pleural thickening. MEDIASTINUM: Unremarkable. No evidence of right heart strain. CORONARY ARTERY CALCIFICATION: Present CHEST WALL/AXILLA: No axillary or internal mammary lymphadenopathy. UPPER ABDOMEN: Unremarkable BONES: Unremarkable CT/CT angio chest PE protocol IMPRESSION: Positive for pulmonary emboli bilaterally. No sign of right heart strain. Result Read via Craig at 5:16 pm EST by ERIC Car guidelines were followed. Electronically signed by: Jose Zavala MD 03/08/2025 05:21 PM EST
[2025-03-08] MEDS: iohexoL 350 MG/ML 100 ML INFUS..BTL IV (16:53)
== END 2025-03-08 11:24 | disposition home or self-care (01) ==
LOC: HO.XRAY 11:23
PROVIDERS: PCP Physician Assistant; Visit Provider Physician Assistant
DX: R79.89 Other specified abnormal findings of blood chemistry (principal); R06.00 Dyspnea, unspecified; S72.002A Fracture of unspecified part of neck of left femur, initial encounter for closed fracture; G30.9 Alzheimer's disease, unspecified; F02.80 Dementia in other diseases classified elsewhere, unspecified severity, without behavioral disturbance, psychotic disturbance, mood disturbance, and anxiety; I26.99 Other pulmonary embolism without acute cor pulmonale; R63.4 Abnormal weight loss; E05.00 Thyrotoxicosis with diffuse goiter without thyrotoxic crisis or storm
CPT/HCPCS: 36415; 71046; 71275; 80048; 80076; 82607; 82746; 83540; 84443; 84484; 85025; 85379; 96127; 99212; Q9967

== ENCOUNTER → 2025-03-08 12:52 | Outpatient (BNV) | payer MEDICARE, SELFPAY | PROVIDERS: PCP Physician Assistant; Visit Provider Radiology Diagnostic Radiology | DX: R06.00 Dyspnea, unspecified (principal) | CPT/HCPCS: 71046 ==

== ENCOUNTER 2025-03-16 15:08 | Outpatient (AMB) | payer MEDICARE, SELFPAY ==
--- OUTSIDE RECORDS SUMMARY | 2024-08-15 05:40 | XMS_ITS ---
Author Organization [facility] Address [address] [place] [address] Care Team Providers Care Turning And Beading Machine Operator Name Role Phone CAL MULTANI Primary Care Provider Maria G Nguyễn Unavailable [phone] REASON FOR VISIT COLP- LSIL Encounters Encounter Location Date Provider Diagnosis [facility] [address] [place] [address] 08/15/2024 Maria G Cardona Plan Of Treatment Next Appt Details Provider Name:Maria G muro, 03/14/2026 01:40:00 PM, [address], [address], [place], [address], Progress Notes * DALLAS ALIYAHDOB:1945 (80 yo F)Acc No.[id number]:08/15/2024 Progress Note Patient: ALIYAH DAVIS Appointment Provider: Amita Cardona M.D. :1945 A ge:79 Y S ex:Female Date:08/15/2024 Address:[address] [place], [place] [id number] Pcp:CAL MULTANI Subjective: * Chief Complaints: * 1 . COLP- LSIL. * Medical History: Objective: * Vitals: Assessment: Plan: * Treatment: * Images: Billing Information: * Visit Code: * Procedure Codes: * Electronic signature of Dmitri Cardona MD on 03/16/2025 at 10:40 PM EST Sign off status: Pending * Appointment Provider: Amita Cardona M.D. Date: 0 08/15/2024 Generated for Tori josé/Isela/Brooke on: 1 05/17/2024 10:40 PM EST
--- OUTSIDE RECORDS SUMMARY | 2024-10-13 08:20 | XMS_ITS ---
Author Organization [facility] Address [address] [place] [address] Care Team Providers Care Sealer Aircraft Name Role Phone CAL MULTANI Primary Care Provider Maria G Nguyễn Unavailable [phone] REASON FOR VISIT 6 month f/u Encounters Encounter Location Date Provider Diagnosis [facility] [address] [address] 10/13/2024 Maria G Cardona Plan Of Treatment Next Appt Details Provider Name:Maria G muro, 03/14/2026 01:40:00 PM, [address] [facility], [address], [place], [address], Progress Notes * DALLAS ALIYAHDOB:1945 (80 yo F)Acc No.[id number]:10/13/2024 PROGRESS NOTES Patient: ALIYAH DAVIS Appointment Provider: Amita Cardona M.D. :1945 A ge:79 Y S ex:Female Date:10/13/2024 Address:[address] [place], [place] [address] Pcp:CAL MULTANI Subjective: * Chief Complaints: * 1 . 6 month f/u. * Medical History: Objective: * Vitals: Assessment: Plan: * Treatment: * Images: Billing Information: * Visit Code: * Procedure Codes: * Electronic signature of Dmitri Cardona MD on 03/16/2025 at 10:40 PM EST Sign off status: Pending * Appointment Provider: Amita Cardona M.D. Date: 0 10/13/2024 Generated for Tori josé/Isela/Brooke on: 1 05/17/2024 10:40 PM EST
--- OUTSIDE RECORDS SUMMARY | 2025-02-13 08:40 | XMS_ITS ---
Author Organization [employer] Address [address] [place] [address] Care Team Providers Care Mill Tender Washing Name Role Phone CAL MULTANI Primary Care Provider Maria G Nguyễn Unavailable [phone] REASON FOR VISIT 6 month f/u Encounters Encounter Location Date Provider Diagnosis [facility] [address] [address] 02/13/2025 Maria G Cardona Plan Of Treatment Next Appt Details Provider Name:Maria G muro, 03/14/2026 01:40:00 PM, [address] [facility], [address], [place], [address], Progress Notes * [place] ALIYAHDOB:1945 (80 yo F)Acc No.[id number]:02/13/2025 PROGRESS NOTES Patient: ALIYAH DAVIS Appointment Provider: Amita Cardona M.D. :1945 A ge:79 Y S ex:Female Date:02/13/2025 Address:[address] [place], [place] [id number] Pcp:CAL MULTANI Subjective: * Chief Complaints: * 1 . 6 month f/u. * Medical History: Objective: * Vitals: Assessment: Plan: * Treatment: * Images: Billing Information: * Visit Code: * Procedure Codes: * Electronic signature of Dmitri Cardona MD on 03/16/2025 at 10:40 PM EST Sign off status: Pending * Appointment Provider: Amita Cardona M.D. Date: 04/15/2024 Generated for Tori josé/Isela/Brooke on: 05/17/2024 10:40 PM EST
--- NOTE | 2025-03-16 15:20 | MHC.OFFVIS ---
Vital Signs 03/16/25 15:27 Height 5 ft 3 in Weight 119 lb 6 oz BMI 21.1 BP 110/60 Blood Pressure Location Rt brachial Position Sitting Pulse 86 Pulse Source Pulse Oximeter Pulse Oximetry (%) 99 Oxygen Delivery Method Room Air Intake Visit Reasons: 2mnth w SB Intake Note: Pt is here for F/U on sleep. Pt report she had a hip replacement two weeks ago done by Rasheed Albert at [facility]. Accompanied by: Spouse Allergies rofecoxib (From VIOXX) Allergy (Mild, Verified 03/16/25 15:29) Swelling HPI Comments Details: 80 y/o R Handed female comes for cognitive issues accompanied by her spouse. 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 She has difficulties staying asleep, goes to bed at midnight and wakes up at 1am watches tv, she snores loudly, Her noticed that she is having issues with short term memory, trouble with executive dysfunction like using cellular phone since about 2 years ago and has progressed. She started memantine 1 year ago and the cognition seems stable. says she needs redirection and short term memory is poor, she lost her glasses, and misplaces items, though was very organized all her life. The patient does not feel she has any issues. She is frustrated with that he suggested cognitive evaluation 5 years ago. Her was diagnosed with metastatic prostrate cancer- and he is stressed out as they do not have support. She drives with no issues. She cooks and is independent in all her ADLS. She has PT 2x a week, OT 1x a week, safety bars installed, and nurse visits 1x a week. She does all her house chores including finances.She worked as RN at [employer]- retired about 5 years ago. [facility] Medical History (Updated 03/20/25 @ 00:40 by Ghanshyam Hutchinson PA-C) Alzheimer's dementia Fracture of femoral neck, left Pulmonary embolism Dementia Cognitive impairment Exposure to hepatitis B Graves disease Diverticulosis Surgical History H/O removal of cyst H/O: hysterectomy Hx of tonsillectomy History of appendectomy H/O esophagogastroduodenoscopy H/O colonoscopy (~08/14/22) Family History (Updated 03/08/25 @ 11:38 by Lina Horvath MA) Mother No problems noted. Father No problems noted. Social History Housing: House Patient Tobacco Use Status: Former Tobacco user e-Cigarette/Vaping Use: Former Use Second Hand Smoke Exposure: No service: No Current occupational status: retired Cognitive needs: Yes (walker) Hearing needs: No Vision needs: Yes (rxx glasses) Physical Exam Vital Signs: Last Vital Signs Pulse 86 03/16/25 15:27 BP 110/60 03/16/25 15:27 Pulse Ox 99 03/16/25 15:27 Oxygen Delivery Method Room Air 03/16/25 15:27 BMI result Body Mass Index 21.1 Const General: cooperative, healthy appearing, comfortable, no acute distress and anxious Nutritional Appearance: average body habitus Orientation/consciousness: oriented to person and oriented to place Eyes Pupils: Equal, round and reactive pupils present Neuro General: oriented to person, oriented to place, gait normal, moves all extremities and no focal motor deficits Cranial nerves: Yes Facial sensation intact/muscles of mastication intact, Yes Equal, round and reactive pupils present, Yes Bilaterally intact EOM present, Yes Nystagmus not present, Yes Normal facial strength present, Yes Midline tongue present and Yes Ability to bilaterally elevate shoulders present Cognition (Neuro): abnormal cognition Gait exam (Neuro): Normal gait present Motor exam (neuro): 5/5 motor strength present throughout and Normal motor muscle tone present throughout Deep tendon reflexes (DTR's): Right triceps reflex intensity grade: 1+, Left triceps reflex intensity grade: 1+, Rt Biceps (C5, C6): 1+, Left biceps reflex intensity grade: 1+, Right brachioradialis reflex intensity grade: 1+, Left brachioradialis reflex intensity grade: 1+, Right patellar reflex intensity grade: 1+ and Left patellar reflex intensity grade: 1+ Coordination: [id number] test normal Psych Affect: Anxious affect present Orientation What is the (year) (season) (date) (day) (month)?: year Where are we (state) (county) (town or city) (hospital) (floor)?: state, town or city and hospital/clinic Registration Name of 3 unrelated objects clearly and slowly, then ask patient to repeat all 3 of them. (1st repeat determines score. Make sure they can repeat all three): object 1, object 2 and object 3 Attention & Calculation (CHOOSE ONE) Spell WORLD backwards (DLROW): 1 letter Recall Ask patient to repeat the 3 items from question #3.: object 1 and object 2 Language Show patient a wristwatch & ask what it is. Repeat for pencil.: watch and pencil Ask the patient to repeat the phrase 'No ifs, ands, or buts' after you.: correct Ask the patient to 'take a piece of paper with their right hand' 'fold paper in half' 'place paper on floor': take paper in right hand, fold paper in half and place paper on floor Print the sentence 'CLOSE YOUR EYES' on a piece. If patient actually closes eyes then score.: followed written direction Give patient a blank piece of paper & ask to write a sentence. Score if it contains a noun & verb.: sentence contains subject and verb Score Score: 18 Results Reviewed Results Reviewed: Feb 2025 [facility] note fracture of femur. labs reviewed with pt. will refer to pcp. MRI October 2024 MR/MR head/brain wo con IMPRESSION: Cerebral atrophy. No acute intracranial abnormality. PET scan 01/2025 reviewed with pt + scan for AD, centiloid burden is 58.4. ApoE Genotype E3/E3 Reference Range: NOT ESTABLISHED E3/E3: This combination of isoforms is most common and suggests an average risk of Alzheimer's disease. Patient sex, environment, race, ethnicity, and presence of other risk alleles also contribute to the risk of AD associated with APOE genotype (1,2). Patients who do not carry the APOE4 gene are of average risk for amyloid related imaging abnormalities (ARIA) when receiving amyloid-modifying therapies (3). [place] HS 3122 NG/ML Results of DDimer called to Precious Cuadra on 03/08/25 at 1420 by KETAN. D-DIMER HS REFERENCE RANGE Assessment & Plan Assessment & Plan (1) Cognitive impairment: Comment: radha early dementia Code(s): R41.89 - Other symptoms and signs involving cognitive functions and awareness Category: Medical (2) Alzheimer's dementia: Code(s): G30.9 - Alzheimer's disease, unspecified; F02.80 - Dementia in other diseases classified elsewhere, unspecified severity, without behavioral disturbance, psychotic disturbance, mood disturbance, and anxiety Category: Medical Qualifiers: Alzheimer's disease onset: early onset Dementia severity: moderate Dementia behavioral or psychological symptom: unspecified whether behavioral, psychotic, or mood disturbance or anxiety Qualified Code(s): G30.0 - Alzheimer's disease with early onset; F02.B0 - Dementia in other diseases classified elsewhere, moderate, without behavioral disturbance, psychotic disturbance, mood disturbance, and anxiety Plan HST to r/o [facility], Memory clinic evaluation neuro- psych testing per 's request as they have family there. PET is positive for Alzheimer's dementia/ centiloid 58.4/ APO E4 statis is E3/E3 average risk. Continue Memantine MMSE is 18/30 today. Labs reviewed with pt. F/U in 3 months Orders: Orders RT home sleep study 03/16/25 G47.19 - Other hypersomnia Referrals Neuropsychiatry Referral F02.80 - Dementia in other diseases classified elsewhere, unspecified severity, without behavioral disturbance, psychotic disturbance, mood disturbance, and anxiety, G30.9 - Alzheimer's disease, unspecified, R41.89 - Other symptoms and signs involving cognitive functions and awareness Patient Instructions: Please complete the following fasting labs to rule out deficiencies. CBC/CMP/ B12/ Vit D/ TSH/ Homocysteine and MMA/ Ferritin. Sleep Hygiene provided: set a scheduled bedtime and wake time to help regulate the circadian rhythm and balance the release of pituitary hormones. Sleep in a dark room, temperatures below 68 degrees, and no devices n bed. Limit caffeinated products 6 hours prior to bed, and limit fluids 2-4 hours prior to bed. Gentle night yoga, diffusing essential oils, and playing soft music can be relaxing. Coding Level of Care Code Est Pt Level 4 (01960) Diagnoses Cognitive impairment R41.89 Moderate early onset Alzheimer's dementia, unspecified whether behavioral, psychotic, or mood disturbance or anxiety G30.0; F02.B0 Alzheimer's disease onset: early onset Dementia severity: moderate Dementia behavioral or psychological symptom: unspecified whether behavioral, psychotic, or mood disturbance or anxiety Sleep Questionnaire Difficulty falling asleep: No Difficulty staying asleep?: Yes Number of arousals: 1-2 Snoring: Yes Witnessed apneas: Yes Gasping arousals: Yes Nocturia: No GERD: No Vivid dreams: No Acting out dreams: Yes Abnormal behavior in sleep: Yes Abnormal movements in sleep: Yes Morning headaches: No Excessive daytime sleepiness: Yes Daytime naps: Yes Restless legs: No Hallucinations: No Sleep paralysis: No Drop attacks: No Sleep Study: No CPAP: No
[2025-03-16 15:27] VITALS: BP 110/60; PULSE 86; O2SAT 99; BMI 21.1
--- OUTSIDE RECORDS SUMMARY | 2025-03-16 22:40 | XMS_ITS | Patient Health Record ---
Author Organization [facility] [facility] Address [address] [place] [address] Care Team Providers Care Nursing Agency Manager Name Role Phone CAL MULTANI Primary Care Provider Maria G Nguyễn Unavailable [phone] Allergies Allergen (clinical drug ingredient) Drug/Non Drug Allergy documented on EMR Reaction Allergy Type Onset Date Status rofecoxib Vioxx (uncoded) Lips Swell Allergy Act van Results Component Value Reference Range Notes [id number] IGP No Culture 30 Plus Reviewed date:09/01/2024 08:34:55 AM Interpretation: Performing Lab:[facility], [address] [place] [address], Phone - [phone], Director - [facility] Notes/Report: Clinical Information:Vaginal, LMP: Hyst, + HPV [id number] LMP / Prev Treat...Hyst Dates / Results....07/30/22 NIL, + HPV Other..............Post Menopausal No. of containers..01 ThinPrep Vial DIAGNOSIS: EPITHELIAL CELL ABNORMALITY. LOW GRADE SQUAMOUS INTRAEPITHELIAL LESION (LSIL). Specimen adequacy: Satisfact ory for evaluation. No endocervical component is identified. Clinician provided ICD10: R8 7.810 Performed by: Ramses plascencia, Renal Nurse (ASCP) Electronically signed by: Gaurang Yo MD, [...] Report Reviewed date:04/21/2024 05:15:26 PM Interpretation: Performing Lab:[facility], [address] [place] [address], Phone - [phone], Director - [facility] Notes/Report: Clinical Information:Vaginal, LMP: Hyst, + HPV [id number] LMP / Prev Treat...Hyst Dates / Results....07/30/22 NIL, + HPV Other..............Post Menopausal No. of containers..01 ThinPrep Vial [id number] IGP No Culture 30 Plus (Not yet reviewed by provider) Interpretation: Performing Lab:[facility], [address] [place] [address], Phone - [phone], Director - [facility] Notes/Report: Clinical Information:Vaginal/Cervical, LMP: Par tial Hyst, Hx of LGSIL, + HPV Source.............Cervix;Vagina LMP / Prev Treat...Hyst Dates / Results....04/13/24 LGSIL, + HPV Other..............Post Menopausal No. of containers..01 ThinPrep Vial DIAGNOSIS: EPITHELIAL CELL ABNORMALITY. LOW GRADE SQUAMOUS INTRAEPITHELIAL LESION (LSIL). Specimen adequacy: Satisfactory for evaluation. Endocervical and/or squamous metaplastic cells (endocervical component) are present. Clinician provided ICD10: Z01.411 Z11.51 Performed by: Ramses plascencia, Forms Analysis Manager (ASCP) Electronically signed by: Lakshmi Bauer MD, Pathologist . . Pathologist provided ICD10: [...] HPV Genotype not performed. PDF Report Reviewed date:03/14/2025 12:40:54 PM Interpretation: Performing Lab:[facility], [address] [place] [address], Phone - [phone], Director - [facility] Notes/Report: Clinical Information:Vaginal/Cervical, LMP: Par tial Hyst, Hx of LGSIL, + HPV Source.............Cervix;Vagina LMP / Prev Treat...Hyst Dates / Results....04/13/24 LGSIL, + HPV Other..............Post Menopausal No. of containers..01 ThinPrep Vial Reason For Referral No Information Medications Medication SIG (Take, Route, Frequency, Duration) Notes Start Date End Date Status Levothyroxine Sodium 100 MCG TAKE 1 TABLET BY MOUTH BEFORE BREAKFAST Oral; Duration: 30 Days Active Clobetasol Propionate 0.05 % 1 application to affected area Externally once a night for a month, then q other night for another month, then 2 to 3 times per week; Duration: 90 days 08/31/2024 Active Escitalopram Oxalate 10 MG TAKE 1 TABLET BY MOUTH ONCE DAILY Oral; Duration: 30 Days Active Memantine HCl ER 28 MG TAKE 1 BY MOUTH O NCE DAILY Oral; Duration: 30 Days Active Hair Vitamins - as directed Orally Unknown oxyCODONE HCl 5 MG TAKE 1/2 (ONE-HALF) TABLET BY MOUTH EVERY 6 HOURS NEEDED FOR PAIN Oral; Duration: 7 Days Active Magnesium 400 MG TAKE 1 TABLET BY KALPESH TH ONCE DAILY Oral; Duration: 100 Days Active Aspirin Adult Low Dose 81 MG 1 tablet Orally Once a day Active Enoxaparin Sodium 40 MG/0.4ML 0.4 mL Subcutaneous Once a day Active Estradiol Vaginal Cream 0.01% 1 Gram to the affected area Vaginal/Vulva Twice a week; Duration: 90 Days 08/31/2024 Active Estradiol Vaginal Cream 0.01% 1 Gram to the affected area Vaginal/Vulva Twice a week; Duration: 90 Days 03/08/2025 Active Multi-Vitamin Daily - 1 tablet Orally On ce a day Unknown Acetaminophen 325 MG 3 tablets as needed Orally Three x a day, prn Active Calcium 1 tab Oral Unknown Social History Tobacco Use: Social History Observation [...] test positive, high risk on vaginal specimen (129140862510202) Cervical high risk human papillomavirus (HPV) DNA test positive (R87.810) Active confirmed Problem Postmenopausal atrophic vaginitis (89936484) Postmenopausal atrophic vaginitis (N95.2) Active confirmed Problem Age-related osteoporosis (030788768) Age-related osteoporosis without current pathological fracture (M81.0) Active confirmed Problem 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) Active confirmed Problem Disorder of breast (72778108) Disorder of breast, unspecified (N64.9) Active confirmed Problem Atrophy of vulva (587384317) 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) Active confirmed Problem Human papillomavirus deoxyribonucleic acid test positive, high risk on vaginal specimen (199660588917115) Vaginal high risk human papillomavirus (HPV) DNA test positive (R87.811) Active confirmed Problem History of dysplasia of cervix (202656719) Personal history of cervical dysplasia (Z87.410) Active confirmed Problem Vitamin D deficiency (82148973) Vitamin D deficiency, unspecified (E55.9) Active confirmed Vital Signs Temperature 98.1 degrees Fahrenheit 03/08/2025 Blood pressure diastolic 58 mm Hg 03/08/2025 Height 64.75 in 03/08/2025 Blood pressure systolic 108 mm Hg 03/08/2025 Weight 118 lbs 03/08/2025 BMI 19.79 kg/m2 03/08/2025 Encounters Encounter Location Date Provider Diagnosis Total [address] [address] 04/13/2024 Maria G Cardona Lichen sclerosus et atrophicus L90.0 ; Atrophy of vulva N90.5 and Cervical high risk human papillomavirus (HPV) DNA test positive R87.[address] [address] 08/31/2024 Maria G Cardona Low grade squamous intraepithelial lesion on cytologic smear of vagina (LGSIL) R87.622 ; Vaginal high risk human papillomavirus (HPV) DNA test positive R87.811 ; Lichen sclerosus et atrophicus L90.0 and Atrophy of vulva N90.[address] [address] 03/08/2025 Maria G Cardona Encounter for screen ing for human papillomavirus (HPV) Z11.51 ; Encounter for gynecological examination (general) (routine) without abnormal findings Z01.419 ; Encounter for screening mammogram for malignant neoplasm of breast Z12.31 ; Age-related osteoporosis without current pathological fracture M81.0 ; Lichen sclerosus et atrophicus L90.0 ; Postmenopausal atrophic vaginitis N95.2 ; Atrophy of vulva N90.5 ; Personal history of cervical dysplasia Z87.410 ; Low grade squamous intraepithelial lesion on cytologic smear of vagina (LGSIL) R87.622 and Cervical high risk human papillomavirus (HPV) DNA test positive R87.[address] [address] 04/12/2024 Maria G Cardona [address] [address] 06/23/2024 Maria G Cardona Assessments Encounter Date Diagnosis (ICD Code) Assessment Notes Treatment Notes Treatment Clinical Notes Section Notes 04/13/2024 Lichen sclerosus et atrophicus (ICD-10 - [...] PERFORMED. REPEAT PAP TEST IN A YEAR. 03/08/2025 Encounter for gynecological examination (general) (routine) without abnormal findings (ICD-10 - Z01.419) PAP TEST WAS OBTAINED. 03/08/2025 Encounter for screening for human papillomavirus (HPV) (ICD-10 - Z11.51) HPV TYPING WAS ORDERED WITH PAP TEST. 03/08/2025 Encounter for screening mammogram for malignant neoplasm of breast (ICD-10 - Z12.31) REGULAR MAMMOGRAMS AND SBE'S WERE RECOMMENDED. 08/31/2024 Vaginal high risk human papillomavirus (HPV) DNA test positive (ICD-10 - R87.811) DISCUSSED POSITIVE HR HPV AND ITS IMPLICATIONS. 04/13/2024 Atrophy of vulva (ICD-10 - N90.5) CONTINUE APPLYING ESTRADIOL CREAM TO VULVA TWICE WEEKLY. 04/13/2024 Cervical high risk human papillomavirus (HPV) DNA test positive (ICD-10 - R87.810) DISCUSSED NEGATIVE PAP TEST BUT POSITIVE HR HPV AND ITS IMPLICATIONS. REPEAT PAP TEST WITH HPV TYPING WAS OBTAINED. 08/31/2024 Lichen sclerosus et atrophicus (ICD-10 - L90.0) SHOWED PAT LESIONS AND ADVISED HER TO APPLY CLOBETASOL OINTMENT NIGHTLY FOR A MONTH, THEN Q OTHER NIGHT FOR ANOTHER MONTH, THEN THRICE A WEEK. WRITTEN INSTRUCTIONS WERE GIVEN. RTO IN 6 MONTHS. 03/08/2025 Age-related osteoporosis without current pathological fracture (ICD-10 - M81.0) DISCUSSED HER LAST BMD AND OSTEOPOROSIS AND ITS NEGATIVE IMPACT ON HER HEALTH. ADEQUATE CALCIUM AND VIT D. OSTEO PRECAUTIONS. CONSIDER SEEING AN DIRECTIONAL BORE OPERATOR OR STARTING FOSAMAX TO DECREASE FRACTURE RISK SPECIALLY SINCE SHE HAS ALREADY FRACTURED. 08/31/2024 Atrophy of vulva (ICD-10 - N90.5) DISCUSSED VULVAR ATROPHY AND ADVISED PAT TO APPLY ESTRADIOL CREAM TO VULVA TWICE WEEKLY. DETAILED INSTRUCTIONS WERE GIVEN. SHE HAS BEEN APPLYING THIS CREAM INTRAVAGINALLY FOR VAGINAL ATROPHY. 03/08/2025 Lichen sclerosus et atrophicus (ICD-10 - L90.0) DISCUSSED IMPROVEMENT. CONITNUE ONCE WEEKLY APPLICATION OF CLOBETASOL OINTMENT. 03/08/2025 Postmenopausal atrophic vaginitis (ICD-10 - N95.2) CONTINUE ESTRADIOL CREAM. 03/08/2025 Atrophy of vulva (ICD-10 - N90.5) APPLY ESTRADIOL CREAM ALONG VULVA WELL, TWICE WEEKLY. 03/08/2025 Personal history of cervical dysplasia (ICD-10 - Z87.410) DISCUSSED HX OF SONIA AND PREVIOUS CRYOTHERAPY. 03/08/2025 Low grade squamous intraepithelial lesion on cytologic smear of vagina (LGSIL) (ICD-10 - R87.622) DISCUSSED PERSISTENT LSIL ON PAP TEST. REPEAT PAP TEST WAS OBTAINED TODAY. WILL NOT WORRY UNLESS PAP IS WORSE THAN LSIL. 03/08/2025 Cervical high risk human papillomavirus (HPV) DNA test positive (ICD-10 - R87.810) POSITIVE HR HPV WAS DISCUSSED INCLUDING ITS IMPLICATIONS. Plan Of Treatment Pending Test Test Name Order Date MAMMOGRAM, SCREENING 07/30/2022 MAMMOGRAM, SCREENING 03/01/2024 MAMMOGRAM, SCREENING 03/08/2025 25OH VITAMIN D 01/07/2017 25OH VITAMIN D 02/12/2017 25OH VITAMIN D 06/22/2020 COMPREHENSIVE METABOLIC PANEL 06/22/2020 COMPREHENSIVE METABOLIC PANEL 01/07/2017 N-TELOPEPTIDE CROSS 01/07/2017 N-TELOPEPTIDE CROSS 06/22/2020 PTH, INTACT 06/22/2020 PTH, INTACT 01/07/2017 TSH 06/22/2020 TSH 01/07/2017 BONE DENSITY 03/05/2020 BONE DENSITY 07/30/2022 BONE DENSITY 03/01/2024 MM Digital Mammo Screening 03/08/2025 MM Digital Mammo Screening 07/30/2022 MM Digital Mammo Screening 03/01/2024 [id number] IGP No Culture 30 Plus 12/03/ 2025 Next Appt Details Provider Name:Maria G muro, 03/14/2026 01:40:00 PM, [address], [address], [place], [address], Insurance Providers Payer Name Payer Address Payer Phone Subscriber Number Group Number Insured Name Patient Relationship to Insured Coverage Start Date Coverage End Date MEDICARE [address] [place] [id number] ALIYAH HAYNES Self - patient is the insured MEDEX [address] [place] [address] [phone] [id number] ALIYAH HAYNES Self - patient is [...] cervix (LGSIL) R87.612 Dense breasts, unspecified R92.30 Vaginal high risk human papillomavirus ( HPV) DNA test positive R87.811 Surgical History Surgery Date(Month/Year) Broken Left Hip, Ball Replaced ORIF FX Left Ankle 2013 Total Hysterectomy Tonsillectomy/Adnoidectomy age 7 Iridotomy 2017 Colonoscopy Appendectomy 1979 Hospitalization History Reason Date(Month/Year) See Surgical Hx 1 Vaginal Delivery
--- OUTSIDE RECORDS SUMMARY | 2025-03-16 22:40 | XMS_ITS | Clinical Summary ---
Author Organization [facility] Address [address] [facility] [address] [place] [address] Phone Care Team Providers Care Rail Setter Name Role Phone Anne Sanchez Primary Care Provider [phone] Allergies Active Allergy Reactions Criticality Noted Date Comments Rofecoxib Itching 02/21/2025 Medications memantine (NAMENDA XR) 28 mg 24 hr sprinkle capsule Take 28 mg by mouth daily. 02/08/20 25 Active levothyroxine (SYNTHROID, LEVOTHROID) 100 MCG tablet Take 100 mcg by mouth every morning. Active acetaminophen (TYLENOL) 325 mg tablet Take 3 tablets (975 mg total) by mouth 3 (three) times a day as needed for pain (specific location in comments). 02/24/20 25 Active apixaban (ELIQUIS) 5 mg tablet Take 5 mg by mouth 2 (two) times a day. Active escitalopram oxalate (LEXAPRO) 10 MG tablet Take 1 tablet by mouth every morning. 02/29/20 25 Active magnesium oxide 400 mg magnesium Tab Take 1 tablet by mouth every morning. 02/29/20 25 Active oxyCODONE 5 MG immediate release tabletIndication s:History of left hip hemiarthroplasty ,Post-operative pain Take 1 tablet (5 mg total) by mouth every 6 (six) hours as needed for pain (specific location in comments). Partial fill ok 14 tablet 03/14/20 25 Active clotrimazole (LOTRIMIN) 1 % cream Apply topically 2 (two) times a day for 14 doses. 30 g 02/24/20 enoxaparin (LOVENOX) 40 mg/0.4 mL Syrg subcutaneous syringe Inject 0.4 mL (40 mg total) under the skin daily for 27 doses. 02/25/20 Discontinued oxyCODONE 5 MG immediate release tablet Take 0.5 tablets (2.5 mg total) by mouth every 4 (four) hours as needed for pain (specific location in comments). Partial fill ok 10 tablet 02/24/20 polyethylene glycol (MIRALAX) 17 gram packet Take 17 g by mouth daily for 3 days. 02/25/20 Active Problems Problem Noted Date Diagnosed Date Intertrigo 02/23/2025 Assessment & Plan (02/23/2025 10:04 AM EST): At the intergluteal cleft there is a small patch of intertrigo, no cellulitic findings. No purulence. Not itchy currently. - Clotrimazole twice daily x 7 days Mild cognitive impairment 02/22/2025 Assessment & Plan (02/23/2025 10:04 AM EST): History of mild dementia. She is able to name [place], [place] as location. Not always aware of season or month. Aware of year. Pleasant and cooperative. Mild delirium in setting of hospitalization, medications. No signs of underlying infection. - Maintains capacity -Delirium precautions Assessment & Plan (02/22/2025 9:09 AM EST): History of mild dementia. This morning she is unable to name the hospital, town. She knows she is in [place]. She was able to name the year [...] Encounters Date Type Department Care Team Description 03/14/2025 Telephone [facility] [address] [place] [address] Oneyda Hwang RN Medication Refill 03/09/2025 11:22 AM EST - 03/09/2025 11:59 PM EST Hospital Encounter [address] [address] Naty Moon PA-C Discharge Disposition: Home or Self Care 03/09/2025 11:00 AM EST Office Visit [facility] [address] [place] [address] Naty Moon PA-C History of left hip hemiarthroplasty (Primary Dx) 03/06/2025 Telephone [facility] Medicine [address] [place] [address] Oneyda Hwang RN DVT prophylaxis 02/22/2025 11:14 AM EST Anesthesia Event OR Admitting Dept - Virtual Department [address] [place] [phone] Rika Thakur MD 02/22/2025 10:28 AM EST - 02/22/2025 1:17 PM EST Surgery OR Admitting Dept - Virtual Department [address] [place] [address] Rasheed Le MD ARTHROPLASTY UNIPOLAR HIP 02/22/2025 Procedure Pass OR Admitting Dept - Virtual Department [address] [place] [phone] 02/21/2025 12:18 AM EST - 02/23/2025 2:42 PM EST Hospital Encounter [facility] [address] [address] Bradley Andrade MD Miskovsky, [place] E, MD [...] Care Team (Late st Contact Info) Description 04/13/2025 1:30 PM EST Office Visit [facility] Medicine [address] [place] [address] Rasheed Le MD [address] [place] [address] [facility] [place] [address] [email or web address] Health Maintenance Due Date Last Done Comments Adult Td,Tdap Booster 1945 LIPID PANEL 1947 TSH LEVEL 1947 DEPRESSION SCREENING 1959 HEPATITIS C SCREENING 1965 OSTEOPOROSIS SCREENING INITIAL (ONE-TIME) 2012 COVID-19 VACCINE ( season) 2025 02/02/2025, 02/24/2023, 03/05/2022, Additional history exists CREATININE LEVEL 02/23/2026 02/23/2025, , 02/21/2025 PNEUMOCOCCAL VACCINES (50+ years) Completed 07/22/2022 ZOSTER VACCINES Completed 11/21/2022, 07/22/2022 RSV VACCINE Completed 02/24/2023 INFLUENZA VACCINE Completed 12/07/2024, , 11/21/2022, Additional history exists SMOKING STATUS SCREENING (Once After 26 Yrs) Completed 03/09/2025 HEPATITIS A VACCINES Aged Out No long [...] Care Plan Autogenerated Problem No Zee Lozano, ARIADNA Medical Devices Implanted Type Area Machine Design Engineer Device Identifier Shelf Expiration Date Model / Serial / Lot Hip Stem 9.0mm Femoral Echo Fx [employer] - [id number] Implanted:Qty: 1 on 02/22/2025 by Rasheed Le MD at [facility] Left: Femur [employer] [id number] 06/16/2033 [id number] / / [id number] Hip Centralizer 11mm Implant Cemented Versys 16b Bx/1ea - [id number] Implanted:Qty: 1 on 02/22/2025 by Rasheed Le MD at [facility] Left: Femur [employer]ARYL [employer] [id number] 12/14/2029 [id number] / / [id number] Cement Bone 1x40 Standard - [id number] Implanted:Qty: 1 on 02/22/2025 by Rasheed Le MD at [facility] Left: Femur [employer]ARYL [employer] [id number] 06/04/2027 [id number] / / [id number] Cement Bone 1x40 Standard - [id number] Implanted:Qty: 1 on 02/22/2025 by Rasheed Le MD at [facility] Left: Femur [employer] [id number] 06/04/2027 [id number] / / [id number] Kit Preparation Cement Femoral Bone Quick Use Bx/1ea - [id number] Implanted:Qty: 1 on 02/22/2025 by Rasheed Le MD at [facility] Left: Femur [employer]ARY[employer] 11/03/2026 [id number] / / [id number] Hip Stem 9.0mm Femoral Echo Fx [employer] - [id number] Implanted:Qty: 1 on 02/22/2025 by Rasheed Le MD at [facility] Left: Femur [employer] [id number] 06/16/2033 [id number] / / [id number] Hip Insert Femoral Bio Bentley Ii Endo Titanium Alloy Taper Standard - [id number] Implanted:Qty: 1 on 02/22/2025 by Rasheed Le MD at [facility] Left: Femur [employer] [id number] 10/28/2034 [id number] / / [id number] Femoral Head 44mm Shell Endo Ii Titanium Alloy Unipolar - [id number] Implanted:Qty: 1 on 02/22/2025 by Rasheed Le MD at [facility] Left: Femur [employer] [id number] 06/07/2033 [id number] / / [id number] Procedures Procedure Name Priority Date/Time Associated Diagnosis Comments XR HIP 2 VW LEFT PLUS PELVIS Routine 03/09/2025 11:34 AM EST History of left hip hemiarthroplasty BASIC METABOLIC PANEL (BMP) Routine 02/23/2025 6:16 [...] EST from Last 3 Months Results * XR HIP 2 VW LEFT PLUS PELVIS (03/09/2025 11:34 AM EST) Narrative SYSTEMGENERATED, DOCUMENTATION - 03/09/2025 11:34 AM EST This image report has been auto-finalized and has not been read by a Radiologist. Interpretation has been included in the provider encounter note for this date of service. us Naty Moon PA-C IMG XR PELVIS Final Re sult * (ABNORMAL) CBC (02/23/2025 6:16 AM EST) WBC 12.18(H) 4.00 - 11.00 K/uL 02/23/2025 6:45 AM [facility] RBC 3.46(L) 4.00 - 5.20 M/uL 02/23/2025 6:45 AM [facility] Hemoglobin 10.9(L) 12.0 - 16.0 g/dL 02/23/2025 6:45 AM [facility] Hematocrit 32.7(L) 36.0 - 46.0 % 02/23/2025 6:45 AM [facility] MCV 94.5 80.0 - 100.0 fL 02/23/2025 6:45 AM [facility] MCH 31.5(H) 27.0 - 31.0 pg 02/23/2025 6:45 AM [facility] MCHC 33.3 32.0 - 36.0 g/dL 02/23/2025 6:45 AM [facility] PLT 251 150 - 450 K/uL 02/23/2025 6:45 AM [facility] MPV 9.4 8.4 - 12.0 fL 02/23/2025 6:45 AM [facility] RDW-CV 13.1 11.5 - 14.5 % 02/23/2025 6:45 AM [facility] Absolute NRBC 0.00 <=0.00 K cells/uL 02/23/2025 6:45 AM [facility] NRBC 0.0 <=0.0 /100 WBCs 02/23/2025 6:45 AM [facility] Blood (Blood) Venipuncture / Unknown 02/23/2025 6:16 AM EST 02/23/2025 6:24 AM EST us Keanu Mendoza PA-C LAB BLOOD BKR ORDERABLE S Final Result [facility] [address] [place] [address] * (ABNORMAL) Basic Metabolic Panel (BMP) (02/23/2025 6:16 AM EST) Only the most recent of3 resultswithin the time period is included. Sodium 140 136 - 145 mmol/L 02/23/2025 7:15 AM [facility] Potassium 4.0 3.4 - 5.1 mmol/L 02/23/2025 7:15 AM [facility] Chloride 108(H) 98 - 107 mmol/L 02/23/2025 7:15 AM [facility] CO2 22 20 - 31 mmol/L 02/23/2025 7:15 AM [facility] Anion Gap 10 3 - 17 mmol/L 02/23/2025 7:15 AM [facility] BUN 9 6 - 23 mg/dL 02/23/2025 7:15 AM [facility] Creatinine 0.70 0.50 - 1.00 mg/dL 02/23/2025 7:15 AM [facility] eGFR 89 >59 mL/min/1.7 3m2 02/23/2025 7:15 AM [facility] Comment:Estimated glomerular filtration rate calculated using the CKD-EPI refit equation. Glucose 122(H) 70 - 99 mg/dL 02/23/2025 7:15 AM [facility] Calcium 9.2 8.5 - 10.5 mg/dL 02/23/2025 7:15 AM [facility] Blood (Blood) Venipuncture / Unknown 02/23/2025 6:16 AM EST 02/23/2025 6:24 AM EST us Keanu Mendoza PA-C LAB BLOOD BKR ORDERABLE S Final Result [facility] [address] [place] [address] * XR PELVIS 1-2 VIEW (02/22/2025 4:51 PM EST) Anatomical Region Laterality Modality Pelvis Computed Radiogr aphy 02/22/2025 5:03 PM EST Impressions 02/22/2025 5:06 PM EST Expected postoperative changes status post left hip hemiarthroplasty. Narrative 02/22/2025 5:06 PM EST XR PELVIS 1-2 VIEW Referring clinician's provided indication for this examination in [facility]: S/P Joint Replacement additional clinical information: Recent [...] clinician's provided indication for this examination in [facility]:S/P Joint Replacement additional clinical information: Recent presentationwith [...] with fracture site. 02/24/2025 1:07 PM EST [facility] at 1307 EST Clinical History Pre-op diagnosis: fractured hip left 02/24/2025 1:07 PM EST [facility] Gross Description A. HIP, LEFT; BONE - LEFT HIP: Received in formalin is a 4.1 x 4.1 x 3.6 cm femoral head with no femoral neck received. The articular surface is smooth to focally nodular, christianson to pink-white. The femoral neck region is jagged, irregular and hemorrhagic. Sectioning reveals a hard, trabecular, focally hemorrhagic and christianson-yellow cut surface. A kiosk sales representative section is submitted in a single cassette following decalcification. 02/24/2025 1:07 PM [facility] Grossed By Dudley Fitzpatrick 02/24/2025 1:07 PM [facility] Result Priority Level Routine 02/24/2025 1:07 PM [facility] Disclaimer By their signature above, the pathologist [...] provided in this report. 02/24/2025 1:07 PM [facility] Procedure ARTHROPLASTY UNIPOLAR HIP 02/24/2025 1:07 PM [facility] Musculoskeletal Tissue (Hip, Left) 02/22/2025 1:13 PM EST 02/22/2025 2:50 PM EST Comment:Pre-op diagnosis: fractured hip left us Rasheed Le MD LAB PATHOLOGY ORDERABLES Mari brandon Result Performing Organization Address City/State/[facility] Co de Phone Number [address] [address] * Spinal (02/22/2025 11:22 AM EST) Narrative Rika Thakur MD - 02/22/2025 11:22 AM EST Rika Thakur MD 02/22/2025 12:00 PM Spinal Placement Procedure Note: Start time: 02/22/2025 11:22 AM Performed by: anesthesiologist Anesthesiologist: Rika Thakur MD [employer] Protocol performed: consent obtained, patient identified with 2 identifiers, correct procedure verified, correct site and laterality confirmed, verified equipment, coagulation status reviewed and implant history reviewed. Procedure details: Patient position: left lateral decubitus Prep: chloraprep Approach: midline Location: L3-4 Needle: Needle type: Pencan Needle gauge: 25 Needle length: standard CSF was aspirated Outcome: Sensory level: T4 Blood aspirated? no Paresthesia: no us Rika Thakur MD [place] ANESTHESIA Edited Result - Final * (ABNORMAL) CBC and Differential (02/22/2025 6:14 AM [facility]) Only the most recent of2 resultswithin the time period is included. WBC 6.67 4.00 - 11.00 K/uL 02/22/2025 6:34 AM [facility] RBC 4.11 4.00 - 5.20 M/uL 02/22/2025 6:34 AM [facility] Hemoglobin 12.8 12.0 - 16.0 g/dL 02/22/2025 6:34 AM [facility] Hematocrit 39.0 36.0 - 46.0 % 02/22/2025 6:34 AM [facility] MCV 94.9 80.0 - 100.0 fL 02/22/2025 6:34 AM [facility] MCH 31.1(H) 27.0 - 31.0 pg 02/22/2025 6:34 AM [facility] MCHC 32.8 32.0 - 36.0 g/dL 02/22/2025 6:34 AM [facility] MPV 9.1 8.4 - 12.0 fL 02/22/2025 6:34 AM [facility] RDW-CV 13.2 11.5 - 14.5 % 02/22/2025 6:34 AM [facility] PLT 260 150 - 450 K/uL 02/22/2025 6:34 AM [facility] Neutrophils 46.4 % 02/22/2025 6:34 AM [facility] Lymphocytes 36.9 % 02/22/2025 6:34 AM [facility] Monocytes 11.5 % 02/22/2025 6:34 AM [facility] Eosinophils 4.3 % 02/22/2025 6:34 AM [facility] Basophils 0.6 % 02/22/2025 6:34 AM [facility] Imm Grans 0.3 % 02/22/2025 6:34 AM [facility] NRBC 0.0 <=0.0 /100 WBCs 02/22/2025 6:34 AM [facility] Absolute Neutrophils 3.09 1.92 - 7.60 K/uL 02/22/2025 6:34 AM [facility] Absolute Lymphocytes 2.46 0.72 - 4.10 K/uL 02/22/2025 6:34 AM [facility] Absolute Monocytes 0.77 0.16 - 1.10 K/uL 02/22/2025 6:34 AM [facility] Absolute Eosinophils 0.29 0.00 - 0.50 K/uL 02/22/2025 6:34 AM [facility] Absolute Basophils 0.04 0.00 - 0.15 K/uL 02/22/2025 6:34 AM [facility] Absolute Imm Grans 0.02 0.00 - 0.09 K/uL 02/22/2025 6:34 AM [facility] Absolute NRBC 0.00 <=0.00 K cells/uL 02/22/2025 6:34 AM [facility] Absolute Neutrophils 3.09 1.92 - 7.60 K/uL 02/22/2025 6:34 AM [facility] Comment:Automated cell count . Manual ANC may differ if performed. Diff Type Auto 02/22/2025 6:34 AM [facility] Blood (Blood) Venipuncture / Unknown 02/22/2025 6:14 AM EST 02/22/2025 6:17 AM EST Bradley Andrade MD LAB BLOOD BKR ORDERABLES Final Result [facility] [address] [place] [address] * MRSA/SA PRE-OPERATIVE SCREEN, PCR (02/21/2025 5:58 AM EST) MRSA PCR Screen Negative for MRSA Negative for MRSA 02/21/2025 7:31 AM [facility] SA PCR Screen Negative for SA Negative for SA 02/21/2025 7:31 AM [facility] Swab (Anterior Nares) Non-Blood Collection / Unknown 02/21/2025 5:58 AM EST 02/21/2025 6:13 AM EST Narrative [facility] - 02/21/2025 7:31 AM EST This test was conducted as part of Pre-Operative Screening for Staphylococcus aureus. Please direct any questions regarding this result to the Ordering Provider. us Bradley Andrade MD LAB GENERAL ORDERABLES Final Re sult Performing Organization Address City/[facility]/ZIP Co de Phone Number [address] [address] * MRSA Screen, Culture (02/21/2025 4:06 AM EST) Methicillin Resistant Staphylococcus Aureus (MRSA) Screen Culture/Test No MRSA isolated 02/23/2025 10:48 AM EST [facility] Swab (Anterior Nares) Non-Blood Collection / Unknown 02/21/2025 4:06 AM EST 02/21/2025 4:10 AM EST us Shreya Rivera PA-C LAB MICROBIOLOGY CULTURE OR DERABLES Final Result Performing Organization Address [facility]/ZIP Co de Phone Number [address] [address] * XR CHEST 1 VIEW (02/21/2025 2:11 [...] No significant abnormality. IMPRESSION: No acute abnormality. us Shreya Rivera PA-C IMG XR CHEST Final Resul t * ECG 12-LEAD (02/21/2025 1:53 AM EST) Ventricular Rate EKG/MIN 79 BPM [facility] Atrial Rate 79 BPM [facility] [place] Interval 146 ms [facility] QRS Duration 106 ms [facility] QT Interval 404 ms [facility] QTC Interval 463 ms [facility] P [place] 61 degrees [facility] R Wave [place] -44 degrees [facility] T Wave [place] 61 degrees [facility] 02/21/2025 1:53 AM EST 02/21/2025 2:05 PM EST Narrative [facility] - 02/21/2025 2:05 PM EST Normal sinus rhythm Left axis deviation Low voltage QRS Incomplete right bundle branch block Abnormal ECG No previous ECGs available Confirmed by Luis Toledo ([id number]) on 02/21/2025 2:05:00 PM Shreya Rivera PA-C ECG ORDERABLES Final Resul t [facility] * Blood Bank Hold Specimen (02/21/2025 1:47 AM EST) Sample Expires 02/24/2025 ,2359 02/21/2025 1:57 AM EST [facility] Blood (Blood) Venipuncture / Unknown 02/21/2025 1:47 AM EST 02/21/2025 1:54 AM EST Shreya Rivera PA-C LAB BLOOD BANK TEST ORDERAB LES Final Result [facility], [address] [place] [address] [facility] [address] [place] [address] * XR HIP 2-3 VW LEFT (02/21/2025 [...] clinician's provided indication for this examination in [facility]: Pain; S/P Fall Procedure Note Efrain Roberts MD, PhD - 02/21/2025 XR HIP 2-3 VW LEFT Referring clinician's provided indication for this examination in [facility]:Pain; S/P Fall IMPRESSION: Mildly displaced subcapital left femoral neck fracture, with slight valgusand apex anterior angulation. The intact femoral head remains normallylocated with the intact acetabulum. Nuno Orozco MD IMG XR PELVIS F inal Result from Last 3 Months Additional Health Concerns Active Problems Noted Date Diagnosed Date Autogenerated Problem 02/21/2025 Insurance [facility] MEDEX SUPPLEMENT MEDICARE PART A & B [employer] MED[employer] SUPPLEMENT MEDICARE PART A & B [employer] MED[employer] SUPPLEMENT MEDICARE PART A & B [facility] MEDEX SUPPLEMENT MEDICARE PART A & B [employer] MEDEX SUPPLEMENT MEDICARE PART A & B [employer] MEDEX SUPPLEMENT MEDICARE PART A & B Advance Directives For more information, please contact: [phone] (9AM - 5PM [facility], Thursday-Thursday) Documents on File Type Date Recorded Patient [employer] anation Healthcare Proxy 02/24/2025 12:58 PM * Full Code (Latest Code Status on File) Date Activated Date Inactivated Comments 02/21/2025 5:20 AM Question Answer Comments Code Status Confirmed With: Patient Code Status Communicated To: Inpatient Attending Healthcare Agents on File Name Relationship Healthcare Agent [facility] p Communication Mayur Salena Spouse .Primary Health Care Agent (Proxy form on file) Care Teams Rail Setter Relationship Specialty Start Date End Date Anne Sanchez PA [address] [place] [address] Drive [address] [place] [address] [email or web address] PCP - General Physician Pricing Consultant 02/20/25 Additional Source Comments The information contained in this document represents components of the legal health record. It is not the complete legal health record.[facility]
--- OUTSIDE RECORDS SUMMARY | 2025-03-16 22:40 | XMS_ITS | Encounter Summary ---
Author Organization [facility] Address [address] [place] [address] Phone Care Team Providers Care Parts Sales Manager Name Role Phone Anne Sanchez Primary Care Provider Encounter Details Date Type Department Care Team (Late st Contact Info) Description 02/22/2025 Procedure Pass OR Admitting Dept - Virtual Department [address] [place] [address] Social History Tobacco Use Types Packs/Day Years [...] Description 04/13/2025 1:30 PM EST Office Visit [facility] Medicine [address] [place] [address] Rasheed Le MD [address] [place] [address] Orthopedics & Sports Medicine, [facility] [place] [address] [email or web address] documented as of this encounter Goals Goal Patient Goal Type Associated Problems Recent Progress Patient-Stated? Author Autogenerat ed Goal Care Plan Autogenerated Problem No Zee Lozano, RN documented as of this encounter Visit Diagnoses Not on filedocumented in this encounter Additional Health Concerns Active Problems Noted Date Diagnosed Date Autogenerated Problem 02/21/2025 documented as of this encounter Care Teams Parts Sales Manager Relationship Specialty Start Date End Date Anne Sanchez PA [address] [place] [address] [place] [address] [email or web address] PCP - General Physician Pile Driving Technician 02/20/25 documented as of this encounter Additional Source Comments The information contained in this document represents components of the legal health record. It is not the complete legal health record.[facility]
--- OUTSIDE RECORDS SUMMARY | 2025-03-16 22:41 | XMS_ITS | Encounter Summary ---
Author Organization [facility] Address [address] [place] [address] Phone Care Team Providers Care Latin Teacher Name Role Phone Anne Sanchez Primary Care Provider [phone] Reason for Visit * Reason Onset Date Comments Medication Refill 03/14/2025 Encounter Details Date Type Department Care Team (Late st Contact Info) Description 03/14/2025 Telephone [facility] Orthopedics & Sports Medicine [address] [place] [address] [id number] Oneyda Hwang, RN [address] [place] [phone] [email or web address] Medication Refill Social History Tobacco Use Types Packs/Day Years [...] Progress Notes * Oneyda Hwang RN - 03/14/2025 1:56 PM EST Images from the original note were not included. Pt had left unipolar hip arthroplasty following a hip fracture on 02/22/2025. Pt called requesting a refill of oxycodone today. Pt is using it mostly for night time pain. [facility] verified, re-order pended, please update components / discard as desired documented in this encounter Plan of Treatment Upcoming Encounters Date Type Department Care Team (Late st Contact Info) Description 04/13/2025 1:30 PM EST Office Visit [facility]ics & Sports Medicine [address] [place] [address] Rasheed Le MD [address] [place] [address] [facility] [place] [address] [email or web address] documented as of this encounter Goals Goal Patient Goal Type Associated Problems Recent Progress Patient-Stated? Author Autogenerat ed Goal Care Plan Autogenerated Problem No Zee Lozano, RN documented as of this encounter Visit Diagnoses Diagnosis Post-operative pain- Primary Other acute postoperative pain History of left hip hemiarthroplasty documented in this encounter Additional Health Concerns Active Problems Noted Date Diagnosed Date Autogenerated Problem 02/21/2025 documented as of this encounter Care Teams Latin Teacher Relationship Specialty Start Date End Date Anne Sanchez PA [address] [place] [address] [place] [address] [email or web address] PCP - General Physician Sales Broker 02/20/25 documented as of this encounter Additional Source Comments The information contained in this document represents components of the legal health record. It is not the complete legal health record.[facility]
--- OUTSIDE RECORDS SUMMARY | 2025-03-16 22:41 | XMS_ITS | Patient Health Record ---
Author Organization [facility] Address [address] [place] [id number] Care Team Providers Care Alcohol Law Enforcement Agent Name Role Phone Rodney (RETIRED) Zaki ODELL Primary Care Provide Nayan Mcdonald Jr Unavailable [phone] Allergies Allergen (clinical drug ingredient) Drug/Non Drug Allergy documented on EMR Reaction Allergy Type Onset Date Status rofecoxib vioxx (uncoded) Unknown Allergy Acti ve Reason For Referral No Information Medications Medication SIG (Take, Route, Frequency, Duration) Notes Start Date End Date Status Fluticasone Propionate 50 MCG/ACT Suspension USE 1 SPRAY IN EACH NOSTRIL EVERY DAY Nasal PRN Active Levothyroxine Sodium 100 MCG Tablet 1 tablet in the morning on an empty stomach Orally Once a day; Duration: 30 day(s) Active Multi Vitamin/Minerals Tablet Orally 09/30/2013 Active Calcium + D Active Immunizations Vaccine Route Administration Date Status Comme nts Influenza Unknown 01/21/2022 Administered Social History Tobacco Use: Social History Observation Description Date Details (start date - stop date) Former Smoker NA - NA Social History Tobacco Use: Social Info Question Answer Notes Tobacco Use/Smoking Patient is a former smoker How long has it been since you last smoked? 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 Problems Problem Type SNOMED Code ICD Code Onset Dates Problem Status W/U Status Risk Notes Problem Colon cancer screening (817361119) Colon cancer screening (Z12.11) Active confirmed Problem Family History of Cancer of Colon (Situation) (605370389) Family history of colon cancer (Z80.0) Active confirmed Problem Right upper quadrant pain (293809142) RUQ pain (R10.11) Active confirmed Problem Pain in pelvis (57204917) Pelvic pain (R10.2) Active confirmed Problem Flank pain (689160616) Flank pain (R10.9) Active confirmed Problem Abnormal findings diagnostic imaging of liver and biliary tract (595888389) Abnormal ultrasound of gallbladder (R93.2) Active confirmed Plan Of Treatment Future Test Test Name Order Date UPPER GI ENDOSCOPY 09/30/2013 COLONOSCOPY 09/30/2013 COLONOSCOPY 07/28/2022 Insurance Providers Payer Name Payer Address Payer Phone Subscriber Number Group Number Insured Name Patient Relationship to Insured Coverage Start Date Coverage End Date MEDICARE OF [place] [address] [place] [address] [id number] ALIYAH HAYNES Self - patient is the insured [employer] ATT[employer] CLAIMS [address] [place] [phone] [id number] ALIYAH HAYNES Self - patient is the insured Medical (General) History Medical History History ICD Code Colonoscopy 01/25/14, diverticulosis, fi ve-year followup for family history Graves' disease status post [employer] Occupational exposure to hepatitis B EGD 01/25/14, no H. pylori or Newton's esophagus pyelonephritis Surgical History Surgery Date(Month/Year) appendectomy tonsillectomy right ovarian cyst removed hysterectomy
--- OUTSIDE RECORDS SUMMARY | 2025-03-16 22:41 | XMS_ITS | Clinical Summary ---
Author Organization [facility] [place] [address] Care Team Providers Care Insecticide Mixer Name Role Phone Anne Sanchez Primary Care Provider [phone] Encounters Date Type Department Care Team Description 02/21/2025 Transcribe Orders eD Incoming Referrals [phone] Bina Arriaga MD Alzheimer's disease with late [...] 11:45 AM EST Office Visit Neurology at [address] [phone] Chemo Muhammad MD [address] [place] [address] [place] [address] Health Maintenance Due Date Last Done Comments [...] Procedure Name Priority Date/Time Associated Diagnosis Comments LAB SCAN 03/08/2025 12:[address] SCAN (SCAN) 02/02/2025 12:00 AM EDT from Last 3 Months Results * Scan Doc: Lab (03/08/2025 12:00 AM EST) Narrative 03/08/2025 12:00 AM EST Ordered by an unspecified provider. us Scanning Provider MEDIA MGR SCAN EXT ORDR/RSLT F inal Result * Scan Doc: CT Scan (02/02/2025 12:00 AM EDT) Anatomical Region Laterality Modality Other Narrative 02/02/2025 12:00 AM EDT Ordered by an unspecified provider. us Scanning Provider MEDIA MGR SCAN EXT ORDR/RSLT F inal Result from Last 3 Months Insurance MEDICARE [facility] Care Teams Insecticide Mixer Relationship Specialty Start Date End Date Anne Sanchez PA [address] [place] [address] PCP - General 02/21/25
--- OUTSIDE RECORDS SUMMARY | 2025-05-02 19:00 | XMS_ITS | Clinical Summary ---
Author Organization Unknown Care Team Providers Care Drafting Layout Worker Name Role Phone CAL JAIME Unavailable Unavailable DARRYL RN, LESLY Unavailable Unavailable SALEEM PT, ROHAN Unavailable Unavailable NICK ACCESS ANALYST, CHATO Unavailable Unavailable NATAN OT, SANDRA Unavailable Unavailabl e Payers Payer Name Policy Type Policy Number Effective Date Expira tion Date MEDICARE.[facility] [id number] Problems Condition Name Condition Details Condition Category Status Onset Date Resolution Date Last Treatment Date Treating Clinician Comments UNSP INTRACAP FX LEFT FEMUR, SUBS FOR CLOS FX W ROUTN HEAL Active 2024-04 00:00: 00 MILD COGNITIVE IMPAIRMENT OF UNCERTAIN OR UNKNOWN ETIOLOGY Active 04-06 00:00: 00 ESSENTIAL (PRIMARY) HYPERTENSION Active 04-06 00:00: 00 HYPOTHYROIDI SM, UNSPECIFIED Active 04-06 00:00: 00 DEPRESSION, UNSPECIFIED Active 04-06 00:00: 00 ERYTHEMA INTERTRIGO Active 04-06 00:00: 00 PRESENCE OF LEFT ARTIFICIAL HIP JOINT Active 04-06 00:00: 00 HISTORY OF FALLING Active 04-06 00:00: 00 Allergies, Adverse Reactions, Alerts Allergy Name Allergy Type Status Severity Reaction(s) Onset Date Inactive Date Treating Clinician Comments VIOXX Propensity to adverse reactions Active 2025-02 13:02:4 3 Vital Signs Vital Name Observation Time Observation Value Commen ts Temperature 2025-03-14 11:33:00.000 97.8 [degF] Temperature 2025-03-13 12:50:00.000 97.7 [degF] Temperature 2025-03-10 11:12:00.000 97.2 [degF] Temperature 2025-03-10 10:12:00.000 97.3 [degF] Temperature 2025-03-05 13:58:00.000 97.6 [degF] BMI (%) 2025-03-06 10:51:22.000 21 kg/m2 Height 2025-03-06 10:51:16.000 65 [in_us] Pulse 2025-03-14 11:33:00.000 86 /min Pulse 2025-03-13 12:50:00.000 76 /min Pulse 2025-03-10 11:12:00.000 78 /min Pulse 2025-03-10 10:12:00.000 72 /min Pulse 2025-03-05 13:58:00.000 74 /min O2 Saturation (%) 2025-03-14 11:33:00.000 99 % O2 Saturation (%) 2025-03-13 12:50:00.000 100 % O2 Saturation (%) 2025-03-10 11:12:00.000 98 % O2 Saturation (%) 2025-03-10 10:12:00.000 97 % Respirations 2025-03-14 11:33:00.000 18 /min Respirations 2025-03-13 12:50:00.000 18 /min Respirations 2025-03-10 11:12:00.000 18 /min Respirations 2025-03-10 10:12:00.000 18 /min Respirations 2025-03-05 13:58:00.000 16 /min Weight (lbs) 2025-03-06 10:51:22.000 130 [lb_av] Systolic Blood Pressure 2025-03-14 11:33:00.000 126 mm [Hg] Systolic Blood Pressure 2025-03-13 12:50:00.000 118 mm [Hg] Systolic Blood Pressure 2025-03-10 11:12:00.000 118 mm [Hg] Systolic Blood Pressure 2025-03-10 10:12:00.000 122 mm [Hg] Systolic Blood Pressure 2025-03-05 13:58:00.000 104 mm [Hg] Diastolic Blood Pressure 2025-03-14 11:33:00.000 64 mm [Hg] Diastolic Blood Pressure 2025-03-13 12:50:00.000 60 mm [Hg] Diastolic Blood Pressure 2025-03-10 11:12:00.000 68 mm [Hg] Diastolic Blood Pressure 2025-03-10 10:12:00.000 74 mm [Hg] Diastolic Blood Pressure 2025-03-05 13:58:00.000 60 mm [Hg] Plan of Treatment Planned Activity Planned Date Details Comments Future Scheduled Test FALL REDUC TION MANAGEMENT; RN TO ASSESS AND OBSERVE, RETAIL SALES MERCHANDISER DEVELOPMENT/SUPERVISOR [employer] TO OBSERVE FALL RISK FACTORS AND EDUCATE PATIENT/CAREGIVER ON STRATEGIES TO MINIMIZE THE RISK OF FALLING. [code = FALL REDUCTION MANAGEMENT; RN TO ASSESS AND OBSERVE, RETAIL SALES MERCHANDISER DEVELOPMENT/SUPERVISOR [employer] TO OBSERVE FALL RISK FACTORS AND EDUCATE PATIENT/CAREGIVER ON STRATEGIES TO MINIMIZE THE RISK OF FALLING.] Future Scheduled Test RN TO OBSE RVE, ASSESS, EVALUATE, AND DEVELOP AN INDIVIDUALIZED PLAN OF CARE. AGENCY MAY ACCEPT ORDERS FROM CONSULTING PHYSICIANS RN TO OBSERVE AND ASSESS, RETAIL SALES MERCHANDISER DEVELOPMENT/SUPERVISOR [employer] TO OBSERVE FOR RISK FOR FALLS AND INSTRUCT IN FALL PREVENTION, HOME SAFETY, MEDICATION MANAGEMENT, INFECTION PREVENTION, AND NUTRITION MANAGEMENT. RN/RETAIL SALES MERCHANDISER DEVELOPMENT/SUPERVISOR [employer] NURSE MAY PERFORM O2 SATURATION LEVEL ON ADMISSION AND PRN FOR RESP STATUS CHANGES FOR RN TO ASSESS/RETAIL SALES MERCHANDISER DEVELOPMENT TO OBSERVE PATIENT, WITH NOTIFICATION TO THE PHYSICIAN IF SATURATION IS 90% IN THE ABSENCE OF MORE SPECIFIC PARAMETERS FROM THE PHYSICIAN. AGENCY MAY PERFORM A RESUMPTION OF CARE VISIT FOLLOWING ANY HOSPITAL ADMISSION. RN/RETAIL SALES MERCHANDISER DEVELOPMENT/SUPERVISOR [employer] TO MONITOR CO-MORBID CONDITIONS LISTED ON THE PLAN OF CARE AND ANY NEW CONDITIONS THAT PRESENT THEMSELVES DURING THIS EPISODE TO IDENTIFY CHANGES AND INTERVENE TO MINIMIZE COMPLICATIONS. [code = RN TO OBSERVE, ASSESS, EVALUATE, AND DEVELOP AN INDIVIDUALIZED PLAN OF CARE. AGENCY MAY ACCEPT ORDERS FROM CONSULTING PHYSICIANS RN TO OBSERVE AND ASSESS, RETAIL SALES MERCHANDISER DEVELOPMENT/SUPERVISOR [employer] TO OBSERVE FOR RISK FOR FALLS AND INSTRUCT IN FALL PREVENTION, HOME SAFETY, MEDICATION MANAGEMENT, INFECTION PREVENTION, AND NUTRITION MANAGEMENT. RN/RETAIL SALES MERCHANDISER DEVELOPMENT/SUPERVISOR [employer] NURSE MAY PERFORM O2 SATURATION LEVEL ON ADMISSION AND PRN FOR RESP STATUS CHANGES FOR RN TO ASSESS/RETAIL SALES MERCHANDISER DEVELOPMENT TO OBSERVE PATIENT, WITH NOTIFICATION TO THE PHYSICIAN IF SATURATION IS 90% IN THE ABSENCE OF MORE SPECIFIC PARAMETERS FROM THE PHYSICIAN. AGENCY MAY PERFORM A RESUMPTION OF CARE VISIT FOLLOWING ANY HOSPITAL ADMISSION. RN/RETAIL SALES MERCHANDISER DEVELOPMENT/SUPERVISOR [employer] TO MONITOR CO-MORBID CONDITIONS LISTED ON THE PLAN OF CARE AND ANY NEW CONDITIONS THAT PRESENT THEMSELVES DURING THIS EPISODE TO IDENTIFY CHANGES AND INTERVENE TO MINIMIZE COMPLICATIONS.] Future Scheduled Test PAIN MANAG EMENT; RN TO ASSESS AND TEACH, SUPERVISOR [employer]/RETAIL SALES MERCHANDISER DEVELOPMENT TO OBSERVE AND TEACH AND PROVIDE EDUCATION ON PAIN MANAGEMENT TECHNIQUES. [code = PAIN MANAGEMENT; RN TO ASSESS AND TEACH, SUPERVISOR [employer]/RETAIL SALES MERCHANDISER DEVELOPMENT TO OBSERVE AND TEACH AND PROVIDE EDUCATION ON PAIN MANAGEMENT TECHNIQUES.] Future Scheduled Test RN/RETAIL SALES MERCHANDISER DEVELOPMENT/SUPERVISOR [employer] TO PERFORM/TEACH INCISION CARE TO LEFT HIP. KEEP DSG ON UNTIL 03/09/25 MD APPT [code = RN/RETAIL SALES MERCHANDISER DEVELOPMENT/SUPERVISOR [employer] TO PERFORM/TEACH INCISION CARE TO LEFT HIP. KEEP DSG ON UNTIL 03/09/25 MD APPT] Future Scheduled Test RISK FOR H OSPITALIZATION; RN TO ASSESS/TEACH, SUPERVISOR [employer]/RETAIL SALES MERCHANDISER DEVELOPMENT TO OBSERVE/TEACH PATIENT/CAREGIVER ON RISK FOR HOSPITALIZATION/EMERGENCY ROOM VISITS, TEACH SIGNS AND SYMPTOMS THAT PUT PATIENT AT RISK, WHEN TO NOTIFY NURSE/PHYSICIAN OF COMPLICATIONS/DECLINE, AND WHEN TO CALL 911. [code = RISK FOR HOSPITALIZATION; RN TO ASSESS/TEACH, SUPERVISOR [employer]/RETAIL SALES MERCHANDISER DEVELOPMENT TO OBSERVE/TEACH PATIENT/CAREGIVER ON RISK FOR HOSPITALIZATION/EMERGENCY ROOM VISITS, TEACH SIGNS AND SYMPTOMS THAT PUT PATIENT AT RISK, WHEN TO NOTIFY NURSE/PHYSICIAN OF COMPLICATIONS/DECLINE, AND WHEN TO CALL 911.] Future Scheduled Test MEDICATION MANAGEMENT; RN/RETAIL SALES MERCHANDISER DEVELOPMENT/SUPERVISOR [employer] TO REVIEW MEDICATIONS FOR INTERACTIONS, EFFECTIVENESS OF DRUG THERAPY, AND SIGNS/SYMPTOMS OF ADVERSE REACTIONS. MAY INSTRUCT AND REINFORCE MEDICATION TEACHING RELATED TO THE USE OF MEDICATIONS, DOSAGE, FREQUENCY, PURPOSE, SIDE EFFECTS, AND TO REPORT COMPLICATIONS. [code = MEDICATION MANAGEMENT; RN/RETAIL SALES MERCHANDISER DEVELOPMENT/SUPERVISOR [employer] TO REVIEW MEDICATIONS FOR INTERACTIONS, EFFECTIVENESS OF DRUG THERAPY, AND SIGNS/SYMPTOMS OF ADVERSE REACTIONS. MAY INSTRUCT AND REINFORCE MEDICATION TEACHING RELATED TO THE USE OF MEDICATIONS, DOSAGE, FREQUENCY, PURPOSE, SIDE EFFECTS, AND TO REPORT COMPLICATIONS.] Future Scheduled Test RN TO ASSE SS/TEACH, RETAIL SALES MERCHANDISER DEVELOPMENT,SUPERVISOR [employer] TO OBSERVE AND TEACH MEASURES FOR RECOVERY AND SELF-MANAGEMENT POST HIP REPLACEMENT TO MINIMIZE COMPLICATIONS AND REDUCE RISK OF HOSPITALIZATION. [code = RN TO ASSESS/TEACH, RETAIL SALES MERCHANDISER DEVELOPMENT,SUPERVISOR [employer] TO OBSERVE AND TEACH MEASURES FOR RECOVERY AND SELF-MANAGEMENT POST HIP REPLACEMENT TO MINIMIZE COMPLICATIONS AND REDUCE RISK OF HOSPITALIZATION.] Future Scheduled Test AGENCY MAY PERFORM A RESUMPTION OF CARE VISIT FOLLOWING ANY HOSPITAL ADMISSION. OT TO EVALUATE, OBSERVE / ASSESS, AND MONITOR, WELFARE CENTRE MANAGER TO OBSERVE AND MONITOR, PROVIDE SKILLED THERAPEUTIC INTERVENTION, ACTIVITY, EDUCATION, AND TRAINING TO ADDRESS; DRESSING (OT/TERESA) ACTIVITIES OF DAILY LIVING (OT/WELFARE CENTRE MANAGER) TOILET TRANSFER (OT/WELFARE CENTRE MANAGER) BATH/SHOWER TRANSFER (OT/WELFARE CENTRE MANAGER) HOME ACTIVITY / EXERCISE PROGRAM (OT/WELFARE CENTRE MANAGER) OT/TERESA TO MONITOR AND EDUCATE ON OXYGEN SATURATION DURING ADLS/IADLS, NOTIFY PHYSICIAN AND/OR THE RN CLINICAL OUTREACH DIRECTOR FOR PHYSICIAN NOTIFICATION AND IF O2 SATS BELOW 90% AFTER 10 MIN OF REST. OT/TERESA MAY EDUCATE ON PAIN MANAGEMENT CLINICALLY INDICATED, INCLUDING NON-PHARMACOLOGICAL PAIN REDUCTION TECHNIQUES AND USE OF CRYOTHERAPY OR HEAT UP TO 20 MIN AT A TIME FOR PAIN MANAGEMENT TO LLE OT / WELFARE CENTRE MANAGER TO IDENTIFY FALL RISK FACTORS; EDUCATE THE PATIENT/CAREGIVER ON WAYS TO REDUCE FALL RISK FACTORS AND ESTABLISH HOME EXERCISE PROGRAM TO MINIMIZE FALL RISK. MAY TEACH THE PATIENT FLOOR RECOVERY WHEN CLINICALLY APPROPRIATE. OT/WELFARE CENTRE MANAGER TO EDUCATE ON FEMUR FRACTURE /ORIF SELF-MANAGEMENT [code = AGENCY MAY PERFORM A RESUMPTION OF CARE VISIT FOLLOWING ANY HOSPITAL ADMISSION. OT TO EVALUATE, OBSERVE / ASSESS, AND MONITOR, TERESA TO OBSERVE AND MONITOR, PROVIDE SKILLED THERAPEUTIC INTERVENTION, ACTIVITY, EDUCATION, AND TRAINING TO ADDRESS; DRESSING (OT/TERESA) ACTIVITIES OF DAILY LIVING (OT/TERESA) TOILET TRANSFER (OT/TERESA) BATH/SHOWER TRANSFER (OT/TERESA) HOME ACTIVITY / EXERCISE PROGRAM (OT/WELFARE CENTRE MANAGER) OT/WELFARE CENTRE MANAGER TO MONITOR AND EDUCATE ON OXYGEN SATURATION DURING ADLS/IADLS, NOTIFY PHYSICIAN AND/OR THE RN CLINICAL OUTREACH DIRECTOR FOR PHYSICIAN NOTIFICATION AND IF O2 SATS BELOW 90% AFTER 10 MIN OF REST. OT/WELFARE CENTRE MANAGER MAY EDUCATE ON PAIN MANAGEMENT CLINICALLY INDICATED, INCLUDING NON-PHARMACOLOGICAL PAIN REDUCTION TECHNIQUES AND USE OF CRYOTHERAPY OR HEAT UP TO 20 MIN AT A TIME FOR PAIN MANAGEMENT TO LLE OT / TERESA TO IDENTIFY FALL RISK FACTORS; EDUCATE THE PATIENT/CAREGIVER ON WAYS TO REDUCE FALL RISK FACTORS AND ESTABLISH HOME EXERCISE PROGRAM TO MINIMIZE FALL RISK. MAY TEACH THE PATIENT FLOOR RECOVERY WHEN CLINICALLY APPROPRIATE. OT/WELFARE CENTRE MANAGER TO EDUCATE ON FEMUR FRACTURE /ORIF SELF-MANAGEMENT] Goal Patient Goal - TO WALK ON MY OWN Goal Provider Goal - PATIENT/CAREGIVER WILL VERBALIZE/DEMONSTRATE UNDERSTANDING OF FALL RISK FACTORS AND IMPLEMENT STRATEGIES TO MINIMIZE FALL RISK. PATIENT/CAREGIVER WILL VERBALIZE/DEMONSTRATE AN ABILITY TO ADHERE TO FALL REDUCTION SELF-MANAGEMENT AND LIFE-STYLE CHANGES BY 05/03/25 Goal Provider Goal - A PLAN OF CARE WILL BE ESTABLISHED THAT MEETS THE PATIENT S NEEDS. PATIENT WILL DEMONSTRATE OXYGEN SATURATION WITHIN NORMAL LIMITS OR PATIENT S OPTIMAL LEVEL ESTABLISHED BY THE PHYSICIAN THROUGHOUT CARE. CHANGES TO CO-MORBID CONDITIONS AND ANY NEW CONDITIONS WILL BE IDENTIFIED AND REPORTED TO THE PHYSICIAN. Goal Provider Goal - PATIENT / CAREGIVER WILL VERBALIZE / DEMONSTRATE UNDERSTANDING OF PAIN CONTROL MEASURES BY 05/03/25 Goal Provider Goal - PATIENT / CAREGIVER WILL VERBALIZE / DEMONSTRATE ABILITY TO PERFORM WOUND CARE. WOUND STATUS WILL IMPROVE EVIDENCED BY A DECREASE IN SIZE, DRAINAGE, ABSENCE OF INFECTION, AND DECREASED PAIN BY 05/03/25 Goal Provider Goal - PATIENT/CAREGIVER WILL VERBALIZE UNDERSTANDING OF SIGNS AND SYMPTOMS THAT PUT THE PATIENT AT RISK FOR HOSPITALIZATION /EMERGENCY ROOM VISITS, WHEN TO NOTIFY NURSE/PHYSICIAN OF COMPLICATIONS/DECLINE AND WHEN TO CALL 911. Goal Provider Goal - PATIENT/CAREGIVER TO VERBALIZE, AND CONSISTENTLY DEMONSTRATE EFFECTIVE, SAFE MANAGEMENT OF MEDICATION INCLUDING KNOWLEDGE OF EFFECTIVENESS, POTENTIAL SIDE EFFECTS AND DRUG REACTIONS AND WHEN TO CONTACT THE APPROPRIATE CARE PROVIDER. PATIENT/CAREGIVER WILL BE ABLE TO VERBALIZE UNDERSTANDING OF MEDICATION REGIMEN AND ACCURATELY TAKE MEDICATIONS PRESCRIBED WITHOUT ADVERSE EFFECTS BY 05/03/25 Goal Provider Goal - PATIENT/CAREGIVER WILL DEMONSTRATE UNDERSTANDING OF MEASURES FOR SELF-MANAGEMENT OF A HIP REPLACEMENT. Goal Provider Goal - OT STG: PATIENT WILL IMPROVE LB DRESSING TO CGA WITHIN 4 WEEKS OT LTG: PATIENT WILL DEMONSTRATE IMPROVED ABILITY TO PERFORM LOWER BODY DRESSING TO REDUCE CAREGIVER BURDEN FROM MIN A TO INDEPENDENT WITHIN 8 WEEKS OT LTG: PATIENT WILL DEMONSTRATE IMPROVEMENT IN MODIFIED ALBERTA INDEX SCORE FROM 85 TO 92 INDICATING DECREASED DEPENDENCY ON CAREGIVER ASSISTANCE WITH ACTIVITIES OF DAILY LIVING WITHIN 8 WEEKS OT LTG: PATIENT WILL DEMONSTRATE IMPROVED ABILITY TO PERFORM TOILET TRANSFERS TO REDUCE FALL RISK AND RISK OF INCONTINENCE AND UTI DEVELOPMENT FROM CGA TO INDEPENDENT WITHIN 8 WEEKS OT STG: PATIENT WILL IMPROVE SHOWER TRANSFER TO MIN A WITHIN 4 WEEKS OT LTG: PATIENT WILL DEMONSTRATE IMPROVED ABILITY AND SAFETY TO PERFORM BATH/SHOWER TRANSFER FROM UNABLE TO CGQ WITHIN 8 WEEKS OT LTG: PATIENT WILL DEMONSTRATE IMPROVED STRENGTH/COORDINATION AND/OR DEXTERITY BUE FOR IMPROVED PARTICIPATION IN ADLS EVIDENCED BY IMPROVED INDEPENDENCE FROM MOD A TO INDEPENDENT WITHIN 8 WEEKS OT LTG: PATIENT WILL MAINTAIN OXYGEN SATURATION WITHIN PHYSICIAN ORDERED PARAMETERS THROUGHOUT THE EPISODE OF CARE. OT LTG: PATIENT WILL DEMONSTRATE UNDERSTANDING OF PAIN MANAGEMENT TECHNIQUES EVIDENCED BY REDUCED PAIN IN LLE TO 2/10 WITHIN 8 WEEKS OT LTG: PATIENT/CAREGIVER WILL BE ABLE TO IMPLEMENT RECOMMENDATIONS SPECIFIC TO FALL REDUCTION FOR IMPROVED ADL/IADL COMPLETION AND HOME SAFETY BY END OF EPISODE. OT GOAL: PATIENT WILL DEMONSTRATE OPTIMAL OUTCOMES INCLUDING INCREASED STRENGTH AND MOBILITY WITH NO COMPLICATIONS AND IMPROVED INDEPENDENCE WITH ADLS FOLLOWING FEMUR FRACTURE/ORIF BY END OF EPISODE. Encounters Start Date/Time End Date/Time Encounter Type Admission Type Attending [facility] Care Department Encounter ID Discharge Date Discharge Status Discharge Condition Discharge Reason Percent Goals Met 2025-03-05 00:00:00 2025-05-03 00:00:00 Outpatient NEW ADMISSION LESLY ANDREWS [facility] ED [id number] 17.39
== END 2025-03-16 16:25 | disposition home or self-care (01) ==
LOC: HO.HSMS 15:08
PROVIDERS: PCP Physician Assistant; Visit Provider Physician Assistant Medical
DX: R41.89 Other symptoms and signs involving cognitive functions and awareness (principal); G30.0 Alzheimer's disease with early onset; F02.B0 Dementia in other diseases classified elsewhere, moderate, without behavioral disturbance, psychotic disturbance, mood disturbance, and anxiety
CPT/HCPCS: 99214

== ENCOUNTER → 2025-03-16 15:08 | Outpatient (BNVA) | payer MEDICARE, SELFPAY | PROVIDERS: PCP Physician Assistant; Visit Provider Physician Assistant Medical | DX: R41.89 Other symptoms and signs involving cognitive functions and awareness (principal); G30.0 Alzheimer's disease with early onset; F02.B0 Dementia in other diseases classified elsewhere, moderate, without behavioral disturbance, psychotic disturbance, mood disturbance, and anxiety; G47.19 Other hypersomnia | CPT/HCPCS: 99212 ==